=== PATIENT | female | born 1965 | race Asian ===

== ENCOUNTER 2019-07-18 18:13 | Inpatient (IN) | payer OTHER ==
[~2019-07-18] VITALS: Ht 154.9 cm; Wt 69.8 kg
[2019-07-18] MEDS ORDERED: AMPDEX10CR PO (18:28)
[2019-07-18 19:14] LABS: BASOPHILS ABSOLUTE AUTO 0.06 K/mm3 (0.00-0.23); BASOPHILS PERCENT AUTO 2 % (0-2); Hematocrit 42.9 % (33.0-51.0); Hemoglobin 13.5 g/dL (11.5-16.0); Mean Corpuscular HGB 24.5 pg (26.0-34.0); Mean Corpuscular HGB Conc 31.5 g/dL (31.5-36.5); Mean Corpuscular Volume 78 fL (80-100); Mean Platelet Volume 8.8 fL (9.1-12.4); Platelet Count 415 K/mm3 (150-400); RDW Coefficient Variation 17.2 % (11.7-14.2); RDW Standard Deviation 47.4 fL (35.1-46.3); Red Blood Cell Count 5.52 M/mm3 (3.80-5.20); White Blood Cell Count 3.26 K/mm3 (4.00-11.30)
[2019-07-18 19:18] LABS: EOSINOPHILS PERCENT AUTO 0 % (0-6); IMMATURE GRAN ABSOLUTE AUTO 0.06 K/mm3 (0.00-0.10); IMMATURE GRAN PERCENT AUTO 2 % (0-1); LYMPHOCYTES ABSOLUTE AUTO 1.21 K/mm3 (0.84-5.20); LYMPHOCYTES PERCENT AUTO 37 % (21-46); MONOCYTES ABSOLUTE AUTO 0.18 K/mm3 (0.16-1.47); MONOCYTES PERCENT AUTO 6 % (4-13); NEUTROPHILS ABSOLUTE AUTO 1.75 K/mm3 (1.96-9.15); NEUTROPHILS PERCENT AUTO 54 % (41-73)
[2019-07-18 19:34] LABS: BAND PERCENT MAN 33 % (0-8); BASOPHILS PERCENT MAN 0 % (0-2); EOSINOPHILS PERCENT MAN 0 % (0-6); LYMPHOCYTES PERCENT MAN 34 % (21-46); METAMYELOCYTE ABSOLUTE MAN 0.06 K/mm3 (0.00-0.00); METAMYELOCYTE PERCENT MAN 2 % (0-0); MONOCYTES ABSOLUTE MAN 0.22 K/mm3 (0.16-1.47); MONOCYTES PERCENT MAN 7 % (4-13); MYELOCYTE ABSOLUTE MAN 0.03 K/mm3 (0.00-0.00); MYELOCYTE PERCENT MAN 1 % (0-0); NEUTROPHILS ABSOLUTE MAN 1.56 K/mm3 (1.96-9.15); PROMYELOCYTE ABSOLUTE MAN 0.03 K/mm3 (0.00-0.00); PROMYELOCYTE PERCENT MAN 1 % (0-0); SEG NEUTROPHILS PERCENT MAN 15 % (41-73); TOTAL CELLS COUNTED 100
[2019-07-18 19:35] LABS: OTHER CELL PERCENT MAN 7 % (0-0)
[2019-07-18 19:36] LABS: Alanine Aminotransfer (ALT/SGP 24 U/L (12-78); Albumin, Blood 2.2 g/dL (3.4-5.0); Albumin/Globulin Ratio 0.5 (0.8-1.8); Alk Phos 104 U/L (50-136); Anion Gap 12 mmol/L (6-16); Aspartate Aminotrans (AST/SGOT 18 U/L (12-37); Bilirubin, Total 0.8 mg/dL (0.1-1.0); Blood Urea Nitrogen 18 mg/dL (8-24); Bun/Creatinine Ratio 23.9 (12.0-20.0); CO2, Blood 21 mmol/L (21-32); Calcium, Blood 8.7 mg/dL (8.5-10.1); Chloride, Blood 101 mmol/L (98-108); Creatinine, Blood 0.75 mg/dL (0.40-1.00); Globulin, Blood 4.8 g/dL (2.2-4.0); Glomerular Filtration Rate >60 (60-); Glucose, Blood 175 mg/dL (70-99); Magnesium, Blood 2.1 mg/dL (1.6-2.4); Potassium, Blood 3.6 mmol/L (3.5-5.5); Sodium, Blood 134 mmol/L (136-145)
--- NOTE | 2019-07-19 06:18 | NUR ---
SUMMARY PT ADMITTED TONIGHT FOR BOWEL OBSTRUCTION WITH PERF. PLANNING OR TODAY. PT VOIDING CONCENTRATED MUSE URINE.HAS 18G IV.PER RAMIRO JOYNER DAY SURGERY NOT NEEDING UPREG IF PT HAS NOT HAD MENSES FOR OVER 1 YR DUE TO "MENOPAUSE" PT STATES IN MENOPUASE AND HAS NOT HAD MENSES SINCE AGE 51 YR.
--- NOTE | 2019-07-19 06:58 | NUR ---
DR CROWDER WAS HERE TO SEE PT. PT OUT TO OR NOW PER STRETCHER IN ATTENDANCE OF RAMIRO ARREDONDO.
--- NOTE | 2019-07-19 07:06 | NUR ---
PT TRANSPORTED TO [facility]. AGREE WITH PLANNED SURGERY. LUNG SOUNDS CLEAR. C/O ABD PAIN 11/01. DR. CROWDER IN TO SEE PT AND GET SURGERY CONSENT.
--- NOTE | 2019-07-19 08:26 | NUR ---
07/19/19 0826 Pilar Martinez A EPIDURAL PLACED BY DR. SMITH AT BEGINNING OF CASE. PATIENT ON SCHEDULED ZOSYN 3.375MG, LAST DOSE AT 0615. HERNÁNDEZ PLACED BY NATHALIE PRATT.
--- NOTE | 2019-07-19 12:20 | NUR ---
RECEIV.90ED PT FROM PACU S/P BOWEL RESECTION WITH OSTOMY PLACEMENT. PT RE-INTUBATED IN PACU PRIOR TO DEPARTURE FOR ICU DUE TO DECREASED LOC AND HYPOTENSION. 7.0 ETT/21 AT LIP-PLACED TO VENT AC 20, TV 400, FIO2 40%, PEEP 5-SATS >90% LUNGS CLEAR. ABG DRAWN. PORTABLE CXR DONE TO CONFIRM BOTH ETT AND RIGHT NARE NGT PLACEMENT. NGT PLACED TO LIS. MIDLINE INCISION WITH TASH DRESSING IN PLACE. NO NOTED DRAINAGE. ABDOMEN REMAINS DISTENDED AND NO BT'S AUSCULTATED. A UROMETER WAS PLACED TO HERNÁNDEZ CATH-260 CC DARK, YELLOW URINE OUTPUT. PT RECEIVED 6 LITERS OF IVF BETWEEN OR AND PACU. PT OPENING EYES AND FOLLOWING COMMANDS TO BUGGY MAN. SHE NODS NO TO PAIN. EPIDURAL IN PLACE-SITE CLEAR WITH SCANT AMOUNT OF SANGINOUS DRAINAGE NOTED TO DRESSING. VERBAL ORDER GIVEN TO HOLD EPIDURAL FOR NOW-PER DR. SMITH. PROPOFOL DRIP INITIATED @ 20 MCG/KG/MIN. SOFT WRIST RESTRAINTS PLACED TO PREVENT ACCIDENTAL EXTUBATION/PULLING ON LINES AND TUBES.
[2019-07-19 12:37] LABS: Hematocrit 30.6 % (33.0-51.0); Hemoglobin 9.7 g/dL (11.5-16.0); Mean Corpuscular HGB 25.2 pg (26.0-34.0); Mean Corpuscular HGB Conc 31.7 g/dL (31.5-36.5); Mean Corpuscular Volume 80 fL (80-100); Mean Platelet Volume 8.5 fL (9.1-12.4); Platelet Count 260 K/mm3 (150-400); RDW Coefficient Variation 17.8 % (11.7-14.2); RDW Standard Deviation 50.9 fL (35.1-46.3); Red Blood Cell Count 3.85 M/mm3 (3.80-5.20); White Blood Cell Count 10.87 K/mm3 (4.00-11.30)
[2019-07-19 12:39] LABS: PCO2 Arterial 36.3 mmHg (35-45); PO2 Arterial 66.9 mmHg (80-100); pH Blood Arterial 7.41 (7.35-7.45)
[2019-07-19 13:02] LABS: Anion Gap 7 mmol/L (6-16); Blood Urea Nitrogen 16 mg/dL (8-24); Bun/Creatinine Ratio 28.5 (12.0-20.0); CO2, Blood 24 mmol/L (21-32); Calcium, Blood 7.2 mg/dL (8.5-10.1); Chloride, Blood 109 mmol/L (98-108); Creatinine, Blood 0.56 mg/dL (0.40-1.00); Glomerular Filtration Rate >60 (60-); Glucose, Blood 111 mg/dL (70-99); Potassium, Blood 4.1 mmol/L (3.5-5.5); Sodium, Blood 140 mmol/L (136-145)
--- NOTE | 2019-07-19 13:15 | NUR ---
SBP 60'S. DR. SMITH CONTACTED. NS 500 CC BOLUS INITIATED. ORDER GIVEN TO INITIATED LEVOPHED DRIP-TITRATED TO MAP 60-65. MD AWARE OF NEED FOR CENTRAL LINE. PER DR. SMITH-OK TO INFUSE LEVOPHED DRIP VIA PIV FOR A "SHORT TIME."
[2019-07-19 13:21] LABS: BAND PERCENT MAN 57 % (0-8); BASOPHILS PERCENT MAN 0 % (0-2); EOSINOPHILS PERCENT MAN 0 % (0-6); LYMPHOCYTES ABSOLUTE MAN 0.65 K/mm3 (0.84-5.20); LYMPHOCYTES PERCENT MAN 6 % (21-46); METAMYELOCYTE ABSOLUTE MAN 0.54 K/mm3 (0.00-0.00); METAMYELOCYTE PERCENT MAN 5 % (0-0); MONOCYTES ABSOLUTE MAN 0.54 K/mm3 (0.16-1.47); MONOCYTES PERCENT MAN 5 % (4-13); MYELOCYTE PERCENT MAN 1 % (0-0); NEUTROPHILS ABSOLUTE MAN 9.02 K/mm3 (1.96-9.15); SEG NEUTROPHILS PERCENT MAN 26 % (41-73); TOTAL CELLS COUNTED 100
--- NOTE | 2019-07-19 14:09 | NUR ---
DR. GUERRERO IN TO SEE PT. UPDATED TO CURRENT VS AND STATUS. PROPOFOL DRIP ON STANDBY. PT FOLLOWING COMMANDS VENT ON SPONTANEOUS. INITIALLY TV<200. WILL ATTEMPT WEANING X 30 MIN AND EVALUATE WHETHER OR NOT PT READY TO BE EXTUBATED AT THAT TIME.
--- NOTE | 2019-07-19 14:25 | NUR ---
TV REMAIN 200'S PT AGITATED AND PULLING ON RESRAINTS. SBT ABORTED-PROPOFOL DRIP RESUMED-TITRATED UP TO 30 MCG/KG/MIN AND PT MED WITH FENTANYL 50 MCG IVP X1 FOR PAIN, VENT RETURNED TO PREVIOUS SETTING. DR. DAVIS SPOKE WITH PT SISTER-UPDATED TO PT STATUS AND VERBAL CONSENT GIVEN FOR CENTRAL LINE PLACEMENT.
--- NOTE | 2019-07-19 15:19 | NUR ---
RIJ CENTRAL LINE PLACEMENT CONFIRMED BY DR. DAVIS. DBP 70'S LEVOPHED DRIP TITRATED UP TO 8 MCG. PT RESTING QUIETLY ON VENT WITH PROPOFOL @ 40 MCG/KG/MIN. OPES EYES TO VOICE.
--- NOTE | 2019-07-19 18:23 | NUR ---
PT REMAINS INTUBATED, SEDATED, AND RESTRAINED. RESTING QUIETLY ON VENT WITH PROPOFOL AT 40 MCG/KG/MIN. SBP 100'S AMD MAP> 60-65 WITH LEVOPHED DRIP AT 8 MCG/MIN. HERNÁNDEZ WITH SMALL AMOUNT OF DARK, YELLOW URINE TO UROMETER. FLUID BALANCE-PT OVER 6 LITERS POSITIVE-SCLERAL AND GENERALIZED EDEMA NOTED.
--- NOTE | 2019-07-19 20:00 | NUR ---
ASSUMED CARE OF PT AT 1915. REPORT RECEIVED AT BEDSIDE. PT PRESENTS IN BED. VENTED. SETTINGS CHECKED AND VERIFIED WITH OFF GOING RN. VENT : AC 20, Tv 400, FIO2 25 %, PEEP 5. PT TOLERATING VENT WELL. LEVOPHED AT 10 MCG'S/MIN TO MAINTAIN MAP >60 PERCENT. WILL REVIEW CHART AND PLAN OF CARE FOR THIS PT.
--- NOTE | 2019-07-19 23:00 | NUR ---
HAVE MEDICATED PT WITH 50 MCG FENTANYL FOR RESTLESS WITH VENT AND PROBABLE POST SURGICAL PAIN. THIS AFFECTIVE. PT ABLE TO REST. DRESSING WITH TASH WOUND VAC TO ABDOMEN INTACT. WILL CONTINUE TO MONITOR.
--- NOTE | 2019-07-20 04:19 | NUR ---
PT'S LEVOPHED CONTINUES AT 10 MCG'S/MIN. MAP MAINTAINS >60. PT CONTINUES ON PROPOFOL AT 40 MCG'S/KG. MAINTAINS SAS 3-4. MINIMAL SECRETIONS RETURNED WITH ETT SUCTIONING. PT'S SISTER CALLS FOR UPDATE ON PT. PT HAS BEEN MEDICATED SEVERAL ADDITIONAL TIMES WITH 50 MCG FENTANYL FOR PAIN RELIEF AND IMPROVED VENT TOLERANCE. WILL CONTINUE TO MONITOR.
[2019-07-20 04:56] LABS: Hematocrit 34.6 % (33.0-51.0); Hemoglobin 10.8 g/dL (11.5-16.0); Mean Corpuscular HGB 24.4 pg (26.0-34.0); Mean Corpuscular HGB Conc 31.2 g/dL (31.5-36.5); Mean Corpuscular Volume 78 fL (80-100); Mean Platelet Volume 8.7 fL (9.1-12.4); Platelet Count 297 K/mm3 (150-400); RDW Coefficient Variation 17.7 % (11.7-14.2); RDW Standard Deviation 50.2 fL (35.1-46.3); Red Blood Cell Count 4.42 M/mm3 (3.80-5.20); White Blood Cell Count 13.82 K/mm3 (4.00-11.30)
[2019-07-20 05:17] LABS: Anion Gap 6 mmol/L (6-16); Blood Urea Nitrogen 15 mg/dL (8-24); Bun/Creatinine Ratio 25.4 (12.0-20.0); CO2, Blood 23 mmol/L (21-32); Calcium, Blood 7.4 mg/dL (8.5-10.1); Chloride, Blood 108 mmol/L (98-108); Creatinine, Blood 0.59 mg/dL (0.40-1.00); Glomerular Filtration Rate >60 (60-); Glucose, Blood 124 mg/dL (70-99); Potassium, Blood 3.6 mmol/L (3.5-5.5); Sodium, Blood 137 mmol/L (136-145)
[2019-07-20 05:24] LABS: BAND PERCENT MAN 36 % (0-8); BASOPHILS PERCENT MAN 0 % (0-2); EOSINOPHILS PERCENT MAN 0 % (0-6); LYMPHOCYTES ABSOLUTE MAN 1.65 K/mm3 (0.84-5.20); LYMPHOCYTES PERCENT MAN 12 % (21-46); MONOCYTES ABSOLUTE MAN 0.69 K/mm3 (0.16-1.47); MONOCYTES PERCENT MAN 5 % (4-13); MYELOCYTE ABSOLUTE MAN 0.13 K/mm3 (0.00-0.00); MYELOCYTE PERCENT MAN 1 % (0-0); NEUTROPHILS ABSOLUTE MAN 11.33 K/mm3 (1.96-9.15); SEG NEUTROPHILS PERCENT MAN 46 % (41-73); TOTAL CELLS COUNTED 100
--- NOTE | 2019-07-20 07:10 | NUR ---
PT REMAINS INTUBATED. CURRENTLY, PT AWAKE AND ALERT. FOLLOWING COMMANDS AND COMMUNICATING NONVERBALLLY. PROPOFOL DRIP OFF. PT DENIES PAIN AT PRESENTS. EPIDURAL REMAINS IN PLACE, BUT NOT CURRENTLY IN USE. PLAN TO INITIATE EPIDURAL ONCE PT IS EXTUBATED. LUNGS CLEAR. SATS>90% ON FIO2 25%-VENT ON SPONTANEOUS. NGT TO RIGHT NARES CONTINUES TO DRAIN MODERATED AMOUNT OF THICK, BROWN LIQUID TO LIS. MIDLINE PIC DRESSING WITH SCANT AMOUNT OF OLD BLOOD TO LOWER PORTION OF DRESSING. OSTOMY APPLICANCE INTACT-STOMA PINK-SCANT SANGINOUS DRAINAGE TO OSTOMY BAG. HERNÁNDEZ WITH SMALL AMOUNT OF DARK, YELLOW URINE TO BSD. SCLERAL EDEMA CONTINUES. GENERALIZED EDEMA NOTED-WORSE THAN 07/19/19 ASSESSMENT. ECG SHOWS SR TO ST SBP TRENDING 100'S. ANTICIPATE EXTUBATION LATER THIS AM.
--- NOTE | 2019-07-20 09:10 | NUR ---
PT SUCCESSFULLY EXTUBATED AND PLACED ON 2 LITERS NASAL CANULA. SATS 96% AND NO NOTED SOB/DYSPNEA. EPIDURAL PAIN MEDS INITIATED. EPIDURAL SITE CLEAR-DRESSING WITH SCANT AMOUNT OF OLD BLOOD TO DRESSING. MALAIKA C.L. DRESSING CHANGE COMPLETED ETT TAPE WAS STUCK TO IT.
--- NOTE | 2019-07-20 10:33 | NUR ---
PT REQUESTED TO BE REPOSITONED IN BED. REPOSITIONED SUPINE WITH HOB ELEVATED. PT STATES THAT HER RIGHT LEG FEELS "NUMB". PT REPORTS /10 ABDOMINAL/INCISIONAL PAIN. OSTOMY APPLIANCE WITH GAS AND BROWN LIQUID STOOL.
--- NOTE | 2019-07-20 13:29 | NUR ---
MAP TRENDING LESS THAN 60. PT REPORTS FEELING "OVERWHELMED." SHE IS VERY ANXIOUS AND CONCERNED ABOUT HE BP-ATTEMPTED TO CONSOLE PT AND EXPLAINED TO HER THE USE OF LEVOPHED TO SUPPORT BP. LEVOPHED TITRATED UP TO 4 MCG/MIN TO KEEP MAP>60-65.
--- NOTE | 2019-07-20 18:18 | NUR ---
PT REMAINS A&O X 3. DENIES PAIN WITH EPIDURAL FOR PAIN MANAGEMENT. PT REPORTS MILD "NUMBNESS" TO RIGHT LEG, BUT IS ABLE TO MOVE HER LEG. HR TRENDING 100'S AND MAP>60 WITH LEVOPHED DRIP @ 4 MCG/MIN. PT MAINTAINS SATS>90% ON RA. GENERALIZED EDEMA CONTINUES. INTAKE 1461 VS 950 OUT THIS SHIFT (+511). COLOSTOMY STOMA REMAINS PINK AND BROWN LIQUID STOOL TO OSTOMY APPLIANCE. TASH DRESSING TO MIDLINE REMAINS C/D/I-SCANT AMOUNT OF OLD BLOOD TO LOWER PORTION OF DRESSING. HYPOACTIVE BT'S AUSCULTATED. NGT TO RIGHT NARE RETAPED PER PT REQUEST-TOLERATED WELL.
--- NOTE | 2019-07-20 20:19 | NUR ---
ASSUMPTION OF CARE: PT A&O, AWAKE IN BED. PT IS S/P ABD SURGERY. HAS EPIDURAL IN PLACE INFUSING WITH FENTANYL. DOSING IS CONTINUOUS 10ML/HR. PT HAS NOT NEEDED ADDITIONAL FENTANYL DOSING BEYOND CONTINUOUS INFUSION. STATES PAIN IS 0/10. LUNG SOUNDS ARE CLEAR. SPO2 >90% ON RA. IS ST, HR IN THE 100S, SBP IN THE 100-110S. NGT IN PLACE CONNECTED TO LIS. COLOSTOMY TO R ABD. PT IS PASSING BROWN LIQUID STOOL AND FLATUS. STOMA IS PINK/RED. PT ALSO HAS MIDLINE ABD INCISION CONNECTED TO PORTABLE WOUND VAC. SMALL AMT OF SEROSANGUINEOUS DRAINAGE ON DRESSING, OTHERWISE C/D/I. HERNÁNDEZ IN PLACE DRAINING SMALL AMT OF DARK YELLOW/ANTONIA URINE. PT HAS RIJ IN PLACE INFUSING WITH NS AT 125MLS/HR AND LEVOPHED AT 4MCG/MIN. PIV IN R HAND PATENT AND SL. GOAL TO WEAN LEVOPHED OFF PRESSURES TOLERATE. WILL CONTINUE TO MONITOR.
--- NOTE | 2019-07-20 22:05 | NUR ---
PT AWAKE IN BED. NO COMPLAINTS OF PAIN OR DISCOMFORT AT THIS TIME. PT STILL HAVING BROWN LIQUID STOOL AND IS PASSING GAS. LEVOPHED HAS BEEN TITRATED DOWN TO 2MCG. SBP REMAINS >90 AND MAPS >60. WILL CONTINUE TO TITRATE DOWN.
[2019-07-21 04:08] LABS: Hematocrit 28.7 % (33.0-51.0); Mean Corpuscular HGB 24.7 pg (26.0-34.0); Mean Corpuscular HGB Conc 31.4 g/dL (31.5-36.5); Mean Corpuscular Volume 79 fL (80-100); Mean Platelet Volume 8.9 fL (9.1-12.4); Platelet Count 250 K/mm3 (150-400); RDW Coefficient Variation 17.8 % (11.7-14.2); RDW Standard Deviation 50.1 fL (35.1-46.3); Red Blood Cell Count 3.65 M/mm3 (3.80-5.20); White Blood Cell Count 13.75 K/mm3 (4.00-11.30)
[2019-07-21 04:23] LABS: Anion Gap 7 mmol/L (6-16); Blood Urea Nitrogen 12 mg/dL (8-24); Bun/Creatinine Ratio 23.7 (12.0-20.0); CO2, Blood 22 mmol/L (21-32); Calcium, Blood 7.2 mg/dL (8.5-10.1); Chloride, Blood 113 mmol/L (98-108); Creatinine, Blood 0.51 mg/dL (0.40-1.00); Glomerular Filtration Rate >60 (60-); Glucose, Blood 59 mg/dL (70-99); Potassium, Blood 2.9 mmol/L (3.5-5.5); Sodium, Blood 142 mmol/L (136-145)
[2019-07-21 04:42] LABS: BAND PERCENT MAN 10 % (0-8); BASOPHILS PERCENT MAN 0 % (0-2); EOSINOPHILS PERCENT MAN 0 % (0-6); LYMPHOCYTES ABSOLUTE MAN 1.37 K/mm3 (0.84-5.20); LYMPHOCYTES PERCENT MAN 10 % (21-46); MONOCYTES ABSOLUTE MAN 0.27 K/mm3 (0.16-1.47); MONOCYTES PERCENT MAN 2 % (4-13); MYELOCYTE ABSOLUTE MAN 0.13 K/mm3 (0.00-0.00); MYELOCYTE PERCENT MAN 1 % (0-0); NEUTROPHILS ABSOLUTE MAN 11.96 K/mm3 (1.96-9.15); SEG NEUTROPHILS PERCENT MAN 77 % (41-73); TOTAL CELLS COUNTED 100
--- NOTE | 2019-07-21 06:09 | NUR ---
PT POTASSIUM THIS AM 2.9. CALL PLACED TO DR LI. ORDERS RECEIVED FOR KCL 60MEQ IV X 1.
--- NOTE | 2019-07-21 06:14 | NUR ---
SUMMARY: PT CURRENTLY RESTING. NO ACUTE CHANGES T/O SHIFT. NO CHANGES TO OSTOMY. PT STILL HAVING BROWN LIQUID STOOL AND PASSING GAS. VSS-LEVOPHED IS ON STANDBY. SBP CURRENTLY >90, MAPS >60. HERNÁNDEZ PRODUCING DARK YELLOW URINE. PT HAS NOT HAD ANY COMPLAINTS OF PAIN OR DISCOMFORT. WILL PASS REPORT TO ONCOMING SHIFT
--- NOTE | 2019-07-21 12:20 | NUR ---
REASSESSMENT: PAIN WELL CONTROLLED WITH FENTANYL PCEA, HAS SOME RLE NUMBNESS. HERNÁNDEZ WITH ADEQUATE OUTPUT. ILEOSTOMY HAS GAS AND BROWN LIQUID IN BAG, STOMA DARK PINK AND MOIST. POTASSIUM REPLACEMENT IN PROGRESS. SBP > 90 MM HG, NOT ON PRESSORS. IS C&DB AND USING INCENTIVE SPIROMETER, STATED SHE FEELS MUCH BETTER. DEFERRED BATHING UNTIL THIS AFTERNOON. IS FEELING ANXIOUS; SENT EMAILS TO FAMILY MEMBERS ASKING THEM NOT TO CALL HER SO MUCH, BUT THEY CONTINUE TO DO SO. PLAN IS LIKELY TRANSFER TO SURGICAL FLOOR TODAY.
--- NOTE | 2019-07-21 16:34 | NUR ---
REASSESSMENT: NGT REMOVED WITHOUT INCIDENT, STARTED ON SIPS OF ICE WATER, TOLERATING SO FAR. PAIN IS WELL CONTROLLED WITH PCEA. DENIES NAUSEA. LUNGS CLEARING, NOW CTAB, IS USING IS AND COUGHING. LOOKING FORWARD TO TRANSFER TO SURGICAL FLOOR.
--- NOTE | 2019-07-21 17:53 | NUR ---
PT HERE FROM ICU. THIS RN BEEN GIVEN REPORT AND IS ASSUMING CARE OF PT AT THIS TIME.
--- NOTE | 2019-07-21 18:08 | NUR ---
TRANSFERRED PT TO ROOM 229 VIA HER BED AT 1737. PCEA SANTIAGO AND LOCKED PCEA PUMP HANDED OFF TO Bertha YOUSSEF RN. ASSESSED EPIDURAL AND SURGICAL SITES. PT COMFORTABLE AT TIME OF TRANSFER.
--- NOTE | 2019-07-22 04:34 | NUR ---
SHIFT SUMMARY: RAHEEM IS A&O X 4. SHE IS POD3. TASH PATENT ON MIDLINE INCISION, NO DRAINGE. ILEOSTOMY DRAINING LARGE AMOUNTS OF LIQUID/FORMED STOOL AND FLATUS. EPIDURAL PATENT, SHE REPORTS 0/10 PAIN. SHE HAS DECREASED SENSATION FROM WAISTLINE DOWN RIGHT LEG, LEFT LEG TO MID-THIGH. SHE IS PLEASANT AND COOPERATIVE WITH CARE. GENERALIZED EDEMA. VSS, NO ACUTE EVENTS THIS SHIFT. CENTRAL LINE PATENT. SHE IS LYING IN BED WITH HER CALL LIGHT IN REACH. SHE IS ABLE TO MAKE HER NEEDS KNOWN. ENCOURAGE TO TAKE PART IN OSTOMY CARE. WILL REPORT TO DAY SHIFT RN.
[2019-07-22 05:12] LABS: Hemoglobin 8.6 g/dL (11.5-16.0); Mean Corpuscular HGB 24.7 pg (26.0-34.0); Mean Corpuscular HGB Conc 31.9 g/dL (31.5-36.5); Mean Corpuscular Volume 78 fL (80-100); Mean Platelet Volume 8.8 fL (9.1-12.4); NRBC ABSOLUTE 0.02 K/mm3 (0.00-0.02); NRBC Auto 0.2 /100 WBC (0.0-0.2); Platelet Count 228 K/mm3 (150-400); RDW Standard Deviation 50.7 fL (35.1-46.3); Red Blood Cell Count 3.48 M/mm3 (3.80-5.20); White Blood Cell Count 11.67 K/mm3 (4.00-11.30)
[2019-07-22 05:40] LABS: BAND PERCENT MAN 5 % (0-8); BASOPHILS PERCENT MAN 0 % (0-2); EOSINOPHILS PERCENT MAN 0 % (0-6); LYMPHOCYTES PERCENT MAN 12 % (21-46); METAMYELOCYTE ABSOLUTE MAN 0.11 K/mm3 (0.00-0.00); METAMYELOCYTE PERCENT MAN 1 % (0-0); MONOCYTES ABSOLUTE MAN 0.11 K/mm3 (0.16-1.47); MONOCYTES PERCENT MAN 1 % (4-13); NEUTROPHILS ABSOLUTE MAN 10.03 K/mm3 (1.96-9.15); SEG NEUTROPHILS PERCENT MAN 81 % (41-73); TOTAL CELLS COUNTED 100
[2019-07-22 05:44] LABS: Anion Gap 5 mmol/L (6-16); Blood Urea Nitrogen 5 mg/dL (8-24); Bun/Creatinine Ratio 9.9 (12.0-20.0); CO2, Blood 24 mmol/L (21-32); Calcium, Blood 7.3 mg/dL (8.5-10.1); Chloride, Blood 115 mmol/L (98-108); Glomerular Filtration Rate >60 (60-); Glucose, Blood 115 mg/dL (70-99); Potassium, Blood 3.1 mmol/L (3.5-5.5); Sodium, Blood 144 mmol/L (136-145)
--- NOTE | 2019-07-22 11:25 | NUR ---
ANESTHESIA HERE TO D/C EPIDURAL. DISCUSSED PO PAIN MED.
--- NOTE | 2019-07-22 16:43 | NUR ---
SHIFT SUMMARY PT TOLERATING DIET. PT HAD EPIDURAL OUT TODAY APPROX 12:00. PT BEEN ASSISTED WITH ADL'S PRN. PT S.L. EARLIER TODAY. PT TO HAVE HERNÁNDEZ OUT LATER TODAY. PT WORKED WITH THERAPY AND WALKED IN HALLWAY. PT BEEN MED PRN PAIN. PT BEEN SITTING UP IN CHAIR. PT PARTICIPATING IN CARE OF OSTOMY. PT USING [employer] APPR.
--- NOTE | 2019-07-23 04:06 | NUR ---
SHIFT SUMMARY: RAHEEM IS A&O X4. SHE HAS EMPTIED HER BAG WITH MINIMAL ASSISTANCE A COUPLE OF TIMES THIS SHIFT. SHE HAS ALSO BURPED HER BAG INDEPENDENTLY. SHE IS A STANDBY ASSIST TO THE BATHROOM, URINATING WITHOUT DIFFICULTY. SHE REPORTS TOLERABLE PAIN CONTROL WITH THE USE OF APAP AND TORADOL. SHE IS ABLE TO MAKE HER NEEDS KNOWN. SHE IS TOLERATING THE REGULAR DIET VERY WELL. WILL REPORT TO DAY SHIFT RN.
--- NOTE | 2019-07-23 17:58 | NUR ---
SUMMARY: PT IS POD4 PARTIAL COLECTOMY WITH COLOSTOMY. PT IS A/O, VSS. DID WELL OVERALL TODAY. ABD IS SOFT AND OSTOMY PRODUCING GAS AND STOOL. PT ABLE TO TOLERATE REG DIET. SURGICAL SITE WNL. WALKS WITH 1 ASSIST. DID REPORT INCREASED PAIN AFTER A LENGTH OF TIME WITHOUT TYLENOL OR TORADOL. PT REFUSES TAKING NARCOTICS. DISCUSSED PAIN MANAGEMENT WITH PT AND RECOMMENDED A SCEDULE SO THAT PAIN DOES NOT GET UNBEARABLE. PT EMPTYING OWN OSTOMY BAG. NO ACUTE SAFETY CONCERNS AT THIS TIME. WILL CTM AND PASS REPORT TO NOC RN
--- NOTE | 2019-07-24 18:02 | NUR ---
SUMMARY: PT IS POD5 SMALL BOWEL RESECTION. NO CHANGE TODAY, A/O, VSS. SURGICAL SITE WNL. OSTOMY CONTINUES TO HAVE GOOD OUTPUT, PT TOLERATING REG DIET. UP INDEPENDENTLY IN ROOM AND TAKING WALKS. PT REPORT PAIN MANAGED WELL WITH TYLENOL PRN. PT HAD SOME TROUBLE EMOTIONALLY WITH EMPTYING OSTOMY BAG HERSELF, REPORTS THAT IT IS OVERWHELMING AND THE SMELL TENDS TO MAKE HER NAUSEATED. PT HAS AROMATHERAPY AT BEDSIDE, SELF CARE ENCOURAGED MUCH POSSIBLE. PT EMPTIED X2 TODAY HERSELF AND STAFF EMPTIED X2. PRAYER AND EMOTIONAL SUPPORT GIVEN FOLLOWING PATHOLOGY NEWS. PT SEEMS TO BE "OK" AND IS IN HOPEFUL SPIRITS. NO ACUTE SAFETY CONCERNS. WILL CTM AND REPORT TO ALDEN RN.
--- NOTE | 2019-07-25 06:29 | NUR ---
POD 6 S/P COLECTOMY+ILEOSTOMY. PT VSS, TASH DRESSING CDI W/GOOD SEAL/SX. PT MOI REG PO, NO N/V. PT IS MANAGING OSTOMY W/MIN ASSIST. PT REMAINS ANXIOUS AND VERBALIZES FEELING "OVERWHELMED" W/OSTOMY MGMT. PT VOIDING DARK YELLOW URINE, PO FLUIDS ENC. PT AMB INDEP IN ROOM, IS USING CALL LIGHT FOR ASSISTANCE, WILL CONT TO MONITOR UNTIL REP GIVEN TO ONCOMING RN.
--- NOTE | 2019-07-25 16:07 | NUR ---
PT TEARFUL, STATES SHE IS OVERWHELMED AND "GROSSED OUT " BY OSTOMY. EMOTIONAL SUPPORT AND ENCOURAGEMENT GIVEN TO PATIENT. PT REQUEST SHE BE ALLOWED TO SLEEP UNTIL DINNER.
--- NOTE | 2019-07-25 17:02 | NUR ---
1635 chills pt reports chills, temp now 101.4. blankets removed, pt insructed to use is at least hourly. tylenol given. spoke with pharmacy regarding pneumovax and was recommended that pneumovx be held until 07/26/19
--- NOTE | 2019-07-25 18:34 | NUR ---
summary pt reports pain well controlled with po meds. pt able to burp and empty ostomy bag though at times tearful and states she is overwhelmed and cant do it (deal with ostomy).pt febrile at 101.9, encouraged to use IS and be oob
--- NOTE | 2019-07-26 07:50 | NUR ---
SHIFT SUMMARY: RAHEEM IS A&O X4. SHE IS TOLERATING REGULAR DIET WELL, NO NAUSEA OR VOMITING. EXCELLENT OUTPUT THROUGH ILEOSTOMY. SHE IS EMPTYING AND BURPING THE OSTOMY BAG INDEPENDENTLY, INDEPENDENT IN THE ROOM. SHE USES HER CALL LIGHT APPROPRIATELY. TASH AND WAFER CHANGED JUST BEFORE SHIFT CHANGE D/T OVERFLOW UNDERNEATH WAFER. PT CONCERNED ABOUT HAVING ENOUGH SUPPLIES AT HOME D/T THE LARGE AMOUNT OF OUTPUT THROUGH HER ILEOSTOMY AND THE LEVEL OF CLEANLINESS THAT SHE IS COMFORTABLE WITH. EMOTIONAL SUPPORT PROVIDED, PT REPORTS "HAVING A MOMENT" DUE TO HER CA DIAGNOSIS. SHE IS SITTING UP IN THE BEDSIDE CHAIR WITH HER CALL LIGHT IN REACH. WILL REPORT TO DAY SHIFT RN.
--- NOTE | 2019-07-26 09:35 | NUR ---
PT REQUESTED THAT HER RIGHT CENTRAL LINE DRESSING BE REMOVED. DRESSING REMOVED, SITE WITH EVIDENCE OF POKE HOLES, CLEAN AND DRY, NO LEAKAGE
--- NOTE | 2019-07-26 09:55 | NUR ---
DR CROWDER HERE TO SEE PT. DISCUSSED PT'S STATUS INCLUDING FEVER YESTERDAY. REPORTS PT TO STAY TODAY.
--- NOTE | 2019-07-26 15:13 | NUR ---
RAHEEM HAS HAD A GOOD DAY TODAY, SHE HAS BEEN AFEBRILE, AMBULATORY AND HAS ONLY HAD ASSISTANCE WITH THE DEVICE ONCE THIS SHIFT. SHE IS TOLERATING FLUIDS FAIRLY WELL, HER CONCERN DISCUSSED WITH TROLLEY COLLECTOR IS THAT SHE HAS NO APPETITE FOR "CAFETERIA" FOOD. WE ARE ENCOURAGING FLUIDS AND TRYING TO FIND APPETIZING THINGS. SHE HAS TAKEN TYLENOL TWICE THIS SHIFT, WE DID ASK THAT PHARMACY SWITCH HER TO LIQUID SHE WAS CHEWING THE TABLETS. SHE IS INDEPENDENT IN HER ROOM AND DOESN'T ASK FOR MUCH ASSISTANCE. SHE HAS BEEN GIVEN A LOT OF ENCOURAGEMENT AND POSITIVE FEEDBACK REGARDING HER COLOSTOMY BAG AND HER FUTURE WITH REGARDS TO CHEMOTHERAPY AND TREATMENT.
--- NOTE | 2019-07-26 15:20 | NUR ---
ASSUMING CARE OF PT AT THIS TIME.
--- NOTE | 2019-07-26 17:39 | NUR ---
NO ACUTE CHANGES SINCE ASSUMING CARE. PT HAS NO COMPLAINTS AND IS INDEP IN ROOM. CALL LIGHT WITHIN REACH.
[2019-07-27 03:42] LABS: Hematocrit 27.2 % (33.0-51.0); Hemoglobin 8.8 g/dL (11.5-16.0); Mean Corpuscular HGB 24.7 pg (26.0-34.0); Mean Corpuscular HGB Conc 32.4 g/dL (31.5-36.5); Mean Corpuscular Volume 76 fL (80-100); Mean Platelet Volume 9.2 fL (9.1-12.4); NRBC ABSOLUTE 0.07 K/mm3 (0.00-0.02); NRBC Auto 0.3 /100 WBC (0.0-0.2); Platelet Count 476 K/mm3 (150-400); RDW Coefficient Variation 17.3 % (11.7-14.2); RDW Standard Deviation 46.8 fL (35.1-46.3); Red Blood Cell Count 3.56 M/mm3 (3.80-5.20); White Blood Cell Count 25.34 K/mm3 (4.00-11.30)
[2019-07-27 04:03] LABS: Anion Gap 3 mmol/L (6-16); Blood Urea Nitrogen 7 mg/dL (8-24); Bun/Creatinine Ratio 16.8 (12.0-20.0); CO2, Blood 32 mmol/L (21-32); Calcium, Blood 7.5 mg/dL (8.5-10.1); Chloride, Blood 105 mmol/L (98-108); Creatinine, Blood 0.42 mg/dL (0.40-1.00); Glomerular Filtration Rate >60 (60-); Glucose, Blood 98 mg/dL (70-99); Potassium, Blood 2.5 mmol/L (3.5-5.5); Sodium, Blood 140 mmol/L (136-145)
[2019-07-27 04:05] LABS: BAND PERCENT MAN 17 % (0-8); BASOPHILS PERCENT MAN 0 % (0-2); EOSINOPHILS PERCENT MAN 0 % (0-6); LYMPHOCYTES ABSOLUTE MAN 1.26 K/mm3 (0.84-5.20); LYMPHOCYTES PERCENT MAN 5 % (21-46); MONOCYTES ABSOLUTE MAN 1.01 K/mm3 (0.16-1.47); MONOCYTES PERCENT MAN 4 % (4-13); NEUTROPHILS ABSOLUTE MAN 23.05 K/mm3 (1.96-9.15); SEG NEUTROPHILS PERCENT MAN 74 % (41-73); TOTAL CELLS COUNTED 100
--- NOTE | 2019-07-27 06:41 | NUR ---
SHIFT SUMMARY: RAHEEM IS A&OX4, EMPTYING AND BURPING HER OSTOMY BAG INDEPENDENTLY, INDEPENDENT IN THE ROOM AND TO THE BATHROOM. SHE REPORTED THIS MORNING THAT SHE DID NOT URINATE AT ALL YESTERDAY. HER WBCs INCREASED FROM THE LAST LAB DRAW ON THE FROM 11.73 TO 25.34 AND POTASSIUM 3.1 ON 07/[address] JACKSON NOTIFIED, ORDERS PLACED IN COMPUTER FOR POTASSIUM AND URINALYSIS. VSS. SHE IS ABLE TO MAKE HER NEEDS KNOWN. SHE COMPLETED A WAFER CHANGE WITH MINIMAL HELP. WILL REPORT TO DAY SHIFT RN.
[2019-07-27 08:03] LABS: Source, Urine Clean Catch
[2019-07-27 08:06] LABS: Bilirubin, Urine Neg (Neg); Blood, Urine Neg (Neg); Glucose Qualitative, Urine Neg (Neg); Ketones, Urine Neg (Neg); Leukocyte Esterase, Urine 1+ (Neg); Nitrite, Urine Neg (Neg); Protein, Urine 2+ (Neg); Specific Gravity, Urine 1.015 (1.003-1.022); Urobilinogen, Urine NORM (Normal)
[2019-07-27 08:16] LABS: Appearance, Urine Clear (Clear)
[2019-07-27 08:17] LABS: Color, Urine Yellow (P-Yellow)
[2019-07-27 08:18] LABS: Red Blood Cells, Urine Not Seen /hpf (0-2); Squamous Epithelial Cells Mod /hpf (Few); White Blood Cells, Urine 0-2 /hpf (0-5)
[2019-07-27 08:19] LABS: Bacteria Few /hpf
[2019-07-27 08:20] LABS: Amorphous Light (0-Heavy); Granular Casts Rare /lpf (0); Hyaline Casts 0-2 /lpf (0-2); Mucus Light (0-Heavy); Renal Epithelial Few /hpf (0-Rare); Transitional Epithelial Cells Mod /hpf (0-Rare)
--- NOTE | 2019-07-27 14:08 | NUR ---
INSTRUCTED PT ON DRINKING CONTRAST FOR UPCOMING CT SCAN. PT APPEARS TO BE FRUSTRATED. THIS RN EDUCATED PT ON IMPORTANCE OF CT SCAN AND PROVIDED SUPPORT. WILL CONT TO ENCOURAGE PO INTAKE OF CONTRAST.
--- NOTE | 2019-07-27 15:56 | NUR ---
SHIFT SUMMARY PT COMPLAINING OF GAS LIKE PAINS T/O SHIFT. TYLENOL + IBUPROFEN PRN. VSS. PT AFEBRILE. PT INDEP IN ROOM AND ENCOURAGING AMBULATION. PT INDEP WITH ILEOSTOMY CARE AND SUPPORT/EDUCATION GIVEN PRN. MOI REG DIET. IV SL. PT HAVING REPEAT CT SCAN THIS EVENING. USES CALL LIGHT APPROPRIATELY.
--- NOTE | 2019-07-27 17:40 | NUR ---
PT TO IMAGING.
[2019-07-28 04:22] LABS: Hematocrit 27.5 % (33.0-51.0); Hemoglobin 8.8 g/dL (11.5-16.0); Mean Corpuscular HGB 24.6 pg (26.0-34.0); Mean Corpuscular Volume 77 fL (80-100); Mean Platelet Volume 9.6 fL (9.1-12.4); NRBC ABSOLUTE 0.08 K/mm3 (0.00-0.02); NRBC Auto 0.6 /100 WBC (0.0-0.2); Platelet Count 556 K/mm3 (150-400); RDW Coefficient Variation 17.5 % (11.7-14.2); RDW Standard Deviation 48.2 fL (35.1-46.3); Red Blood Cell Count 3.57 M/mm3 (3.80-5.20); White Blood Cell Count 14.46 K/mm3 (4.00-11.30)
--- NOTE | 2019-07-28 04:26 | NUR ---
SHIFT SUMMARY: PT REPORTS FEELING MUCH BETTER THIS SHIFT. REPORTS PAIN IS AT TOLERABLE LEVEL. EMPTYING AND BURPING OSTOMY BAG INDEPENDENTLY. REPORTS NEEDING MORE EDUCATION ON HOW TO CHANGE OSTOMY APPLIANCE. OSTOMY PRODUCING BROWN LIQ STOOL AND FLATUS. PT REPORTS WHILE BRUSHING TEETH, NOTICED WHITE SPOTS IN MOUTH. PT DENIES DISCOMFORT BUT DOES REPORT A DRY MOUTH. WILL FOLLOWUP WITH DR. ROSA INDEPENDENT IN ROOM. VOIDING. URINE DARK IN COLOR. WILL START IV ABX FOR UTI TODAY.
[2019-07-28 04:44] LABS: BAND PERCENT MAN 9 % (0-8); BASOPHILS PERCENT MAN 0 % (0-2); EOSINOPHILS PERCENT MAN 0 % (0-6); LYMPHOCYTES ABSOLUTE MAN 0.72 K/mm3 (0.84-5.20); LYMPHOCYTES PERCENT MAN 5 % (21-46); MONOCYTES ABSOLUTE MAN 0.57 K/mm3 (0.16-1.47); MONOCYTES PERCENT MAN 4 % (4-13); NEUTROPHILS ABSOLUTE MAN 13.15 K/mm3 (1.96-9.15); SEG NEUTROPHILS PERCENT MAN 82 % (41-73); TOTAL CELLS COUNTED 100
[2019-07-28 04:47] LABS: Anion Gap 3 mmol/L (6-16); Blood Urea Nitrogen 6 mg/dL (8-24); Bun/Creatinine Ratio 13.7 (12.0-20.0); CO2, Blood 31 mmol/L (21-32); Calcium, Blood 7.9 mg/dL (8.5-10.1); Chloride, Blood 108 mmol/L (98-108); Creatinine, Blood 0.44 mg/dL (0.40-1.00); Glomerular Filtration Rate >60 (60-); Glucose, Blood 97 mg/dL (70-99); Sodium, Blood 142 mmol/L (136-145)
--- NOTE | 2019-07-28 10:57 | NUR ---
DR JACKSON IN TO SEE PT.
--- NOTE | 2019-07-28 14:55 | NUR ---
TURNED OVER CARE TO RENZO JOYNER
--- NOTE | 2019-07-28 15:06 | NUR ---
CARE ASSUMED OF PT AT 1500. PT IS ALERT AND ORIENTED. SHE IS GETTING IV POTASSIUM WHICH SHE STATES IS PAINFUL, IV FLUSHED AND POTASSIUM IS RUNNING CONCURRENTLY WITH NS TO DECREASE PAIN; PT IS TOLERATING AT THIS TIME. OSTOMY BAG BURPED. PT DENIES PAIN. SHE COMPLAINED OF SOME NAUSEA BUT IS ABLE TO SIP A PEPSI AT THIS TIME.
--- NOTE | 2019-07-28 18:30 | NUR ---
SHIFT SUMMARY NO SIGNIFICANT CHANGES TO REPORT SINCE CARE ASSUMED OF PT. WILL MONITOR UNTIL REPORT TO ONCOMING RN.
[2019-07-29 03:37] LABS: Hematocrit 26.7 % (33.0-51.0); Hemoglobin 8.6 g/dL (11.5-16.0); Mean Corpuscular HGB 24.9 pg (26.0-34.0); Mean Corpuscular HGB Conc 32.2 g/dL (31.5-36.5); Mean Corpuscular Volume 77 fL (80-100); Mean Platelet Volume 9.4 fL (9.1-12.4); NRBC Auto 0.9 /100 WBC (0.0-0.2); Platelet Count 608 K/mm3 (150-400); RDW Coefficient Variation 17.6 % (11.7-14.2); RDW Standard Deviation 48.4 fL (35.1-46.3); Red Blood Cell Count 3.45 M/mm3 (3.80-5.20); White Blood Cell Count 11.23 K/mm3 (4.00-11.30)
[2019-07-29 03:58] LABS: Anion Gap 4 mmol/L (6-16); Blood Urea Nitrogen 6 mg/dL (8-24); Bun/Creatinine Ratio 14.5 (12.0-20.0); CO2, Blood 29 mmol/L (21-32); Calcium, Blood 7.8 mg/dL (8.5-10.1); Chloride, Blood 110 mmol/L (98-108); Creatinine, Blood 0.41 mg/dL (0.40-1.00); Glomerular Filtration Rate >60 (60-); Glucose, Blood 88 mg/dL (70-99); Magnesium, Blood 1.9 mg/dL (1.6-2.4); Phosphorus, Blood 2.9 mg/dL (2.5-4.9); Potassium, Blood 3.6 mmol/L (3.5-5.5); Sodium, Blood 143 mmol/L (136-145)
[2019-07-29 04:09] LABS: BAND PERCENT MAN 6 % (0-8); BASOPHILS PERCENT MAN 0 % (0-2); EOSINOPHILS PERCENT MAN 0 % (0-6); LYMPHOCYTES ABSOLUTE MAN 1.23 K/mm3 (0.84-5.20); LYMPHOCYTES PERCENT MAN 11 % (21-46); MONOCYTES ABSOLUTE MAN 1.23 K/mm3 (0.16-1.47); MONOCYTES PERCENT MAN 11 % (4-13); NEUTROPHILS ABSOLUTE MAN 8.75 K/mm3 (1.96-9.15); SEG NEUTROPHILS PERCENT MAN 72 % (41-73); TOTAL CELLS COUNTED 100
--- NOTE | 2019-07-29 06:20 | NUR ---
POD 10 S/P COLECTOMY+ILEOSTOMY. PT VSS T/O NIGHT. PT MOI REG PO, NO C/O N/V. PT MANAGING OSTOMY W/MIN ASSIST, APPEARS MORE COMFORTABLE W/PROCESS. PAIN MGD W/TYLENOL AND IBUPROFEN W/REP RELIEF. PT INDEP IN ROOM, IS USING CALL LIGHT FOR ASSISTANCE, WILL CONT TO MONITOR UNTIL REP GIVEN TO ONCOMING RN.
--- NOTE | 2019-07-29 17:49 | NUR ---
SUMMARY: NO CHANGE TODAY. VSS, A/O. PT IN GOOD SPIRITS, HOPEFUL TO GO HOME TOMORROW. SURGICAL SITE STABLE, TOLERATING PO. RATES PAIN 0-2, INDEPENDENT IN ROOM AND WITH OSTOMY CARE. NO CONCERNS NOTED.
--- NOTE | 2019-07-30 05:33 | NUR ---
POD 11 S/P COLECTOMY+ILEOSTOMY. PT VSS, PAIN MGD W/NON PARCOTIC MEDS W/REP RELIEF. PT MOI REG PO, NO N/V. OSTOMY PUTTING OUT LIQ BROWN STOOL, PT MANAGING INDEP, EDUCATION CONT PRN. TASH DRESSING REMAINS INPLACE. PT USING CALL LIGHT FOR ASSISTANCE, IS EAGER TO D/C HOME. WILL CONT TO MONITOR UNTIL REP GIVEN TO ONCOMING RN.
[2019-07-30] MEDS ORDERED: ACET325UDC PO (10:08)
[2019-07-30] MEDS ORDERED: IBUP600 PO (10:09)
[2019-07-30] MEDS ORDERED: ONDA4ODT PO (10:09)
[2019-07-30] MEDS ORDERED: ROXICODONE5 MG PO (10:10)
--- NOTE | 2019-07-30 13:58 | NUR ---
PAIN PT C/O INCREASED CRAMPY ABDOMINAL PAIN AND JUST "NOT FEELING WELL" TODAY. PT MEDICATED FOR PAIN PER EMAR. ABD SOFT, NON-TENDER W/PALPATION, GOOD OSTOMY OUTPUT.
--- NOTE | 2019-07-30 18:16 | NUR ---
SHIFT SUMMARY PT HAD SOME INCREASED PAIN THIS SHIFT, DENIED NEED FOR NARCOTIC PAIN MEDICATION BUT DID REPORT THAT TYLENOL AND IBUPROFEN HEPLED MANAGE AT TOLERABLE LEVEL. UP TO SHOWER. PICCO DRESSING REMOVED AND MEDIPORE APPLIED-MIDLINE INCISION WITH NO REDNESS OR DRAINAGE PRESENT-DERIK TO BE REMOVED OUTPATIENT PER DR RASHEED. PT ACTIVILY PARTICIPATES IN ALL OSTOMY CARE AND DEMONSTRATED HOW TO APPLY NEW DEVICE. PLAN IS TO DC HOME TOMORROW IF NO COMPLICATIONS.
--- NOTE | 2019-07-31 04:12 | NUR ---
SHIFT SUMMARY: PT HAS DONE WELL THIS SHIFT. MEDICATED WITH IBUPROFEN AND TYLENOL PER EMAR. PT RATING PAIN 1/10 ON PAIN SCALE. OSTOMY PRODUCING FLATUS AND SOFT BROWN STOOL. PT MANAGING OSTOMY INDEPENDENTLY. MOI REG DIET. DENIES N/V. INDEPENDENT IN ROOM. PLAN FOR DISCHARGE TODAY.
[2019-07-31] MEDS ORDERED: NYST100000 PO (09:32)
== END 2019-07-31 14:20 | disposition home or self-care (01) | DRG 853 ==
LOC: ER 18:13 → SURS 20:25 → ER 20:25 → ICUW 20:25 → SURS 22:45 → ICUW 07-19 12:13 → SURS 07-19 12:13 → ICUW 07-21 15:15 → SURS 07-21 17:33 → ICUW 07-21 17:33 → SURS 07-31 14:20
PROVIDERS: Emergency Medicine; Internal Medicine Critical Care Medicine; Surgery; ADMIT Surgery
PROC: 3E043XZ Introduction of Vasopressor into Central Vein, Percutaneous Approach (ICD-10-PCS; 2019-07-19)
PROC: 0D1M0Z4 Bypass Descending Colon to Cutaneous, Open Approach (ICD-10-PCS; principal; 2019-07-19 07:30)
PROC: 0DBM0ZZ Excision of Descending Colon, Open Approach (ICD-10-PCS; 2019-07-19 07:30)
PROC: 0BH17EZ Insertion of Endotracheal Airway into Trachea, Via Natural or Artificial Opening (ICD-10-PCS; 2019-07-19 07:30)
PROC: 5A1945Z Respiratory Ventilation, 24-96 Consecutive Hours (ICD-10-PCS; 2019-07-19 07:30)
DX: A41.9 Sepsis, unspecified organism (principal); K63.1 Perforation of intestine (nontraumatic); J95.821 Acute postprocedural respiratory failure; K56.600 Partial intestinal obstruction, unspecified as to cause; I95.9 Hypotension, unspecified; K58.9 Irritable bowel syndrome, unspecified
CPT/HCPCS: 31500; 31720; 36415; 36556; 36600; 71045; 71046; 74018; 74176; 74177; 80048; 80053; 81001; 82803; 83605; 83735; 84100; 84132; 85025; 86850; 86900; 86901; 87040; 87086; 87493; 88307; 88309; 90732; 94002; 94003; 96361; 96365; 96375; 97110; 97116; 97162; 97530; 99285-25; A9270; C1751; C9113; J1100; J1170; J1650; J1885; J2250; J2310; J2370; J2405; J2543; J2704; J2710; J3010; J3480; J7030; J7042; J7050; J7060; J7120; Q9967

== ENCOUNTER 2019-08-22 10:04 | Day surgery (SDC) | payer OTHER ==
[~2019-08-22] VITALS: Ht 154.9 cm; Wt 51.6 kg
[~2019-08-22 10:04] MED LIST: ACET325UDC PO; AMPDEX10CR PO; IBUP600 PO; NYST100000 PO; ONDA4ODT PO; ROXICODONE5 MG PO
--- NOTE | 2019-08-22 10:44 | NUR ---
PT ADMITTED TO [facility]. AGREES WITH PLANNED SURGERY. LUNG SOUNDS CLEAR.
--- NOTE | 2019-08-22 13:54 | NUR ---
"DAY SURGERY RN | DISCHARGE VSS. A/O. DENIES PAIN AND NAUSEA. TOLERATING PO FLUIDS AND FOOD. NO ISSUES. DICHARGE INSTRUCTIONS GIVEN TO PATIENT. TO ENTRANCE VIA WHEELCHAIR, IS RIDE HOME. SITE C/D/I."
== END 2019-08-22 22:55 | disposition home or self-care (01) ==
LOC: ORSCMMR 10:04 → ORD 11:30 → ORSCMMR 22:55
PROVIDERS: Surgery
PROC: 05HM33Z Insertion of Infusion Device into Right Internal Jugular Vein, Percutaneous Approach (ICD-10-PCS; principal; 2019-08-22 11:30)
PROC: B5131ZA Fluoroscopy of Right Jugular Veins using Low Osmolar Contrast, Guidance (ICD-10-PCS; principal; 2019-08-22 11:30)
DX: C18.5 Malignant neoplasm of splenic flexure (principal)
CPT/HCPCS: 77001; C1788; J0690; J1100; J1642; J1885; J2250; J2370; J2405; J2704; J3010; J7120

== ENCOUNTER 2019-08-23 11:20 | Day surgery (SDC) | payer OTHER ==
[2019-08-23 12:11] LABS: Hematocrit 21.8 % (33.0-51.0); Hemoglobin 6.6 g/dL (11.5-16.0); Mean Corpuscular HGB 24.8 pg (26.0-34.0); Mean Corpuscular HGB Conc 30.3 g/dL (31.5-36.5); Mean Platelet Volume 9.4 fL (9.1-12.4); NRBC ABSOLUTE 0.11 K/mm3 (0.00-0.02); NRBC Auto 0.7 /100 WBC (0.0-0.2); Platelet Count 957 K/mm3 (150-400); RDW Coefficient Variation 19.7 % (11.7-14.2); RDW Standard Deviation 48.2 fL (35.1-46.3); Red Blood Cell Count 2.66 M/mm3 (3.80-5.20)
[2019-08-23 12:12] LABS: Mean Corpuscular Volume 82 fL (80-100)
[2019-08-23 12:24] LABS: Alanine Aminotransfer (ALT/SGP 19 U/L (12-78); Albumin, Blood 1.2 g/dL (3.4-5.0); Albumin/Globulin Ratio 0.2 (0.8-1.8); Alk Phos 169 U/L (50-136); Anion Gap 8 mmol/L (6-16); Aspartate Aminotrans (AST/SGOT 15 U/L (12-37); Bilirubin, Total 0.5 mg/dL (0.1-1.0); Blood Urea Nitrogen 13 mg/dL (8-24); Bun/Creatinine Ratio 32.3 (12.0-20.0); CO2, Blood 24 mmol/L (21-32); Calcium, Blood 7.9 mg/dL (8.5-10.1); Chloride, Blood 105 mmol/L (98-108); Globulin, Blood 5.2 g/dL (2.2-4.0); Glomerular Filtration Rate >60 (60-); Glucose, Blood 105 mg/dL (70-99); Potassium, Blood 3.1 mmol/L (3.5-5.5); Sodium, Blood 137 mmol/L (136-145); Total Protein, Blood 6.4 g/dL (6.4-8.2)
[2019-08-23 12:41] LABS: BAND PERCENT MAN 36 % (0-8); BASOPHILS PERCENT MAN 0 % (0-2); EOSINOPHILS PERCENT MAN 0 % (0-6); LYMPHOCYTES ABSOLUTE MAN 1.47 K/mm3 (0.84-5.20); LYMPHOCYTES PERCENT MAN 10 % (21-46); METAMYELOCYTE ABSOLUTE MAN 0.29 K/mm3 (0.00-0.00); METAMYELOCYTE PERCENT MAN 2 % (0-0); MONOCYTES ABSOLUTE MAN 0.44 K/mm3 (0.16-1.47); MONOCYTES PERCENT MAN 3 % (4-13); NEUTROPHILS ABSOLUTE MAN 12.49 K/mm3 (1.96-9.15); SEG NEUTROPHILS PERCENT MAN 49 % (41-73); TOTAL CELLS COUNTED 100
--- NOTE | 2019-08-23 19:24 | NUR ---
FIRST UNIT OF [facility] HERE NOW, STARTED WITH OTHER RN WHO WAS GIVEN REPORT AND IS TAKING OVER CARE. PT ORIGINALLY CROSS-MATCHED OUTPT WHICH CREATED DIFFICULTY IN OBTAINING PR[facility] UNTIL NOW.
--- NOTE | 2019-08-24 00:23 | NUR ---
Discharge instructions reviewed with patient. Patient verbalizes understanding. Copy given to patient to take home. Lungs clear T/O to Auscultation. Patient States Post-Procedure ride home has been arranged. Discharged via wheelchair to private car for ride home. IV removed.
== END 2019-08-24 00:30 | disposition home or self-care (01) ==
LOC: LAB SHORT 11:20 → TRN 11:20 → SURS 11:20 → EDSTATUS 17:24 → TRN 08-24 00:30
PROVIDERS: Internal Medicine Hematology & Oncology
DX: C18.9 Malignant neoplasm of colon, unspecified (principal)
CPT/HCPCS: 80053; 85025; 86850; 86900; 86901; 86923; P9016

== ENCOUNTER 2019-09-23 14:24 | Inpatient (IN) | payer OTHER ==
[~2019-09-23] VITALS: Ht 154.9 cm; Wt 53.3 kg
[2019-09-23 15:10] LABS: Hemoglobin 8.5 g/dL (11.5-16.0); Mean Corpuscular HGB 29.3 pg (26.0-34.0); Mean Corpuscular HGB Conc 31.5 g/dL (31.5-36.5); Mean Platelet Volume 10.1 fL (9.1-12.4); NRBC ABSOLUTE 0.11 K/mm3 (0.00-0.02); NRBC Auto 0.9 /100 WBC (0.0-0.2); Platelet Count 454 K/mm3 (150-400); RDW Coefficient Variation 26.1 % (11.7-14.2); White Blood Cell Count 12.06 K/mm3 (4.00-11.30)
[2019-09-23 15:24] LABS: Mean Corpuscular Volume 93 fL (80-100)
[2019-09-23 15:31] LABS: Alanine Aminotransfer (ALT/SGP 33 U/L (12-78); Albumin, Blood 0.9 g/dL (3.4-5.0); Albumin/Globulin Ratio 0.2 (0.8-1.8); Alk Phos 141 U/L (50-136); Anion Gap 9 mmol/L (6-16); Aspartate Aminotrans (AST/SGOT 15 U/L (12-37); Bilirubin, Total 0.5 mg/dL (0.1-1.0); Blood Urea Nitrogen 19 mg/dL (8-24); Bun/Creatinine Ratio 30.7 (12.0-20.0); CO2, Blood 24 mmol/L (21-32); Calcium, Blood 8.1 mg/dL (8.5-10.1); Chloride, Blood 101 mmol/L (98-108); Creatinine, Blood 0.62 mg/dL (0.40-1.00); Globulin, Blood 4.4 g/dL (2.2-4.0); Glomerular Filtration Rate >60 (60-); Glucose, Blood 139 mg/dL (70-99); Potassium, Blood 2.6 mmol/L (3.5-5.5); Sodium, Blood 134 mmol/L (136-145); Total Protein, Blood 5.3 g/dL (6.4-8.2); Troponin I <0.015 ng/mL (0.000-0.040)
[2019-09-23 16:13] LABS: BAND PERCENT MAN 9 % (0-8); BASOPHILS PERCENT MAN 0 % (0-2); EOSINOPHILS PERCENT MAN 0 % (0-6); LYMPHOCYTES % ATYPICAL MANUAL 1 % (0-0); LYMPHOCYTES ABSOLUTE MAN 4.82 K/mm3 (0.84-5.20); LYMPHOCYTES PERCENT MAN 39 % (21-46); METAMYELOCYTE ABSOLUTE MAN 0.48 K/mm3 (0.00-0.00); METAMYELOCYTE PERCENT MAN 4 % (0-0); MONOCYTES ABSOLUTE MAN 0.72 K/mm3 (0.16-1.47); MONOCYTES PERCENT MAN 6 % (4-13); MYELOCYTE ABSOLUTE MAN 0.36 K/mm3 (0.00-0.00); MYELOCYTE PERCENT MAN 3 % (0-0); NEUTROPHILS ABSOLUTE MAN 5.66 K/mm3 (1.96-9.15); SEG NEUTROPHILS PERCENT MAN 38 % (41-73); TOTAL CELLS COUNTED 100
[2019-09-23] MEDS ORDERED: XARELTO15 MG PO (17:53)
--- NOTE | 2019-09-23 19:02 | NUR ---
09/23/191901 Yash Melendez PT GIVEN ANTIBIOTICS IN ED, WILL BE ON SCHEDULED ANTIBIOTICS
--- NOTE | 2019-09-23 20:00 | NUR ---
SIGNIFICANT OTHER CALLED ER, STATING PT HAS MEDICATIONS IN HER PURSE. MEDS WERE TAKEN OUT (2 NURSE WITNESS) AND WALKED UP TO PHARMACY.
--- NOTE | 2019-09-23 20:27 | NUR ---
ASSUMED CARE NOTE: ASSUMED CARE OF PT AT 2026, RECEVIED REPORT FROM ER NURSE FAHAD AND OR NURSE HASEEB. PT ARRIVED TO UNIT VIA BED, WITH RT, , AND . PT IS UNRESPONSIVE, AND VENTED. NO OXYGEN SATURATION CAN BE OBTAINED, BP CANNOT BE OBTAINED THROUGH MONITOR OR MANUALLY. FAINT PULSE CAN BE FELT ON FEMORAL SITE. PUPILS ARE 2MM, REACTIVE SLUGGISH TO LIGHT. STOMA TO RLQ IS PINK AND MOIST. MIDLINE ABDOMINAL INCISION DRESSING IS C/D/I, CONNECTED TO WOUND VAC WHICH IS NOT WORKING PROPERLY, IS AWARE. AWAITING FOR BLOOD TO TRANSFUSE. 1 L OF LR STARTED WO. CALLED. SWR IN PLACE.
[2019-09-23 21:14] LABS: PCO2 Arterial 22.3 mmHg (35-45)
[2019-09-23 21:21] LABS: PO2 Arterial < 500 mmHg (80-100)
[2019-09-23 21:45] LABS: BASOPHILS ABSOLUTE AUTO 0.02 K/mm3 (0.00-0.23); BASOPHILS PERCENT AUTO 0 % (0-2); EOSINOPHILS ABSOLUTE AUTO 0.01 K/mm3 (0.00-0.68); EOSINOPHILS PERCENT AUTO 0 % (0-6); IMMATURE GRAN ABSOLUTE AUTO 0.63 K/mm3 (0.00-0.10); IMMATURE GRAN PERCENT AUTO 6 % (0-1); LYMPHOCYTES ABSOLUTE AUTO 3.71 K/mm3 (0.84-5.20); LYMPHOCYTES PERCENT AUTO 35 % (21-46); MONOCYTES ABSOLUTE AUTO 0.46 K/mm3 (0.16-1.47); MONOCYTES PERCENT AUTO 4 % (4-13); Mean Corpuscular HGB 29.8 pg (26.0-34.0); Mean Corpuscular HGB Conc 30.4 g/dL (31.5-36.5); Mean Corpuscular Volume 98 fL (80-100); Mean Platelet Volume 10.4 fL (9.1-12.4); NEUTROPHILS ABSOLUTE AUTO 5.93 K/mm3 (1.96-9.15); NEUTROPHILS PERCENT AUTO 55 % (41-73); NRBC ABSOLUTE 0.11 K/mm3 (0.00-0.02); Platelet Count 195 K/mm3 (150-400); RDW Coefficient Variation 24.7 % (11.7-14.2); RDW Standard Deviation 87.9 fL (35.1-46.3); Red Blood Cell Count 1.51 M/mm3 (3.80-5.20); White Blood Cell Count 10.76 K/mm3 (4.00-11.30)
[2019-09-23 21:47] LABS: Hematocrit 14.8 % (33.0-51.0); Hemoglobin 4.5 g/dL (11.5-16.0)
[2019-09-23 21:59] LABS: International Normalized Ratio 3.52; Prothrombin Time Results 35.1 Sec (9.7-11.5)
[2019-09-23 22:00] LABS: Alanine Aminotransfer (ALT/SGP 11 U/L (12-78); Albumin, Blood 0.3 g/dL (3.4-5.0); Albumin/Globulin Ratio 0.2 (0.8-1.8); Alk Phos 53 U/L (50-136); Anion Gap 12 mmol/L (6-16); Aspartate Aminotrans (AST/SGOT 8 U/L (12-37); Bilirubin, Total 0.2 mg/dL (0.1-1.0); Blood Urea Nitrogen 14 mg/dL (8-24); CO2, Blood 18 mmol/L (21-32); Calcium, Blood 6.5 mg/dL (8.5-10.1); Chloride, Blood 107 mmol/L (98-108); Creatinine, Blood 0.54 mg/dL (0.40-1.00); Globulin, Blood 1.8 g/dL (2.2-4.0); Glomerular Filtration Rate >60 (60-); Glucose, Blood 155 mg/dL (70-99); Sodium, Blood 137 mmol/L (136-145)
[2019-09-23 22:01] LABS: Total Protein, Blood 2.1 g/dL (6.4-8.2)
[2019-09-23 22:21] LABS: BAND PERCENT MAN 15 % (0-8); BASOPHILS PERCENT MAN 0 % (0-2); EOSINOPHILS PERCENT MAN 0 % (0-6); LYMPHOCYTES ABSOLUTE MAN 5.16 K/mm3 (0.84-5.20); LYMPHOCYTES PERCENT MAN 48 % (21-46); METAMYELOCYTE ABSOLUTE MAN 0.21 K/mm3 (0.00-0.00); METAMYELOCYTE PERCENT MAN 2 % (0-0); MONOCYTES ABSOLUTE MAN 0.43 K/mm3 (0.16-1.47); MONOCYTES PERCENT MAN 4 % (4-13); NEUTROPHILS ABSOLUTE MAN 4.94 K/mm3 (1.96-9.15); SEG NEUTROPHILS PERCENT MAN 31 % (41-73); TOTAL CELLS COUNTED 100
--- NOTE | 2019-09-23 22:29 | NUR ---
ORDERED 2 MORE UNITS OF PRBC, DUE TO CRITICAL LOW HEMOGLOBIN OF 4.5, ORDERS TO TRANSFUSE BLOOD AT 999ML/HR THROUGH CENTRAL LINE. 3RD UNIT CURRENTLY INFUSING, ARTLINE READING 122/78 WITH A MAP OF 90. LEVOPHED @ 15MCG/MIN, AND VASOPRESSING RUNNING AT 0.04 UNITS A MIN.
--- NOTE | 2019-09-23 22:35 | NUR ---
UPDATE: 2039: AT BEDSIDE, PREPARING TO START CENTRAL LINE. UNABLE TO OBTAIN BP. NO SPO2 AVALIABLE. BLOOD GAS PREFORMED, VENT SETTING AT AC 15/300/5/30%. ANOTHER LITER ON LR GIVEN ORDERED BY . 2114: CENTRAL LINE IN, 8.5 MALTESE, 4 LUMEN, 20CM CATH TO RIGHT GRION. ARTLINE PLACE TO RIGHT FEMORAL. ARTLINE READING 150/90, LEVOPHED TURNED DOWN TO 10MCG/MIN. 2119: ARTLINE READING SBP OF 60'S, LEVO TIRTATED UP TO 20. TWO MORE UNITS OF BLOOD ORDERED BY DELL. PT IN SINUS WITH HR IN THE 130'S. PT IS PALE, AND NO SPO2 CAN BE OBTAINED. DR. SHARPE AWARE. VENT SETTINGS NOW AT AC16/300/5/60%
--- NOTE | 2019-09-23 22:59 | NUR ---
PT CONTINUES TO BE UNRESPONSIVE, PT IS PALE, AND FAINT PULSES T/O. 4TH UNIT OF BLOOD INFUSING. K+ REPLACEMENT IS INFUSING. LEVOPHED AT 15MCG/MIN AND VASOPRESSIN AT 0.04U/MIN INFUSING THRU MEDIPORT LOCATED ON RIGHT SIDE OF THE CHEST. PT HAS 3+ SWELLING TO BLE. HERNÁNDEZ PATENT, LITTLE TO NO URINE OUTPUT. ABDOMINAL SURGICAL DRESSING WAS CHANGED BY MARCELLA JOYNER, IN ATTEMPT TO GET WOUND VAC TO FUNCTION. ATTEMPT WAS UNSUCCESSFUL. SCANT OF BLOOD NOTED TO ABDOMINAL DRESSING.
[2019-09-24 00:01] LABS: Hematocrit 42.8 % (33.0-51.0); Hemoglobin 14.5 g/dL (11.5-16.0)
--- NOTE | 2019-09-24 01:49 | NUR ---
UPDATE: PT'S CONTINUES TO HAVE LOW BP. CALLED REGARDING LOW SPB IN THE 70'S. PT WAS GIVEN A 1L OF LR BOLUS AND DEEDEE-SYNEPHRINE STARTED AT 50MCG/MIN
[2019-09-24 03:20] LABS: Mean Corpuscular HGB 31.2 pg (26.0-34.0); Mean Corpuscular HGB Conc 33.3 g/dL (31.5-36.5); Mean Corpuscular Volume 94 fL (80-100); Mean Platelet Volume 10.3 fL (9.1-12.4); NRBC ABSOLUTE 0.16 K/mm3 (0.00-0.02); NRBC Auto 0.8 /100 WBC (0.0-0.2); Platelet Count 81 K/mm3 (150-400); RDW Coefficient Variation 15.1 % (11.7-14.2); RDW Standard Deviation 49.6 fL (35.1-46.3); Red Blood Cell Count 1.86 M/mm3 (3.80-5.20); White Blood Cell Count 21.09 K/mm3 (4.00-11.30)
[2019-09-24 03:21] LABS: Hematocrit 17.4 % (33.0-51.0); Hemoglobin 5.8 g/dL (11.5-16.0)
--- NOTE | 2019-09-24 03:31 | NUR ---
CALLED REGARDING LOW BP AND 5.8 HEMOGLOBIN. ORDERS TO INFUSE [address] SCAN ORDERED.
[2019-09-24 03:38] LABS: Troponin I 0.039 ng/mL (0.000-0.040)
--- NOTE | 2019-09-24 03:41 | NUR ---
UPDATE: PT IS RESPONDING TO VERBAL AND PAINFUL STIMULI. IS ABLE TO FOLLOW DIRECTIONS AND IS ABLE TO ANSWER YES/NO USING BODY LANGUAGE. ROOPA JOYNER UPDATE SO, WHO WILL CONTACT PT'S ANNAMARIA
[2019-09-24 03:43] LABS: International Normalized Ratio 2.79
[2019-09-24 03:57] LABS: Prothrombin Time Results 28.2 Sec (9.7-11.5)
[2019-09-24 03:59] LABS: Alanine Aminotransfer (ALT/SGP 10 U/L (12-78); Albumin, Blood 0.6 g/dL (3.4-5.0); Albumin/Globulin Ratio 0.5 (0.8-1.8); Alk Phos 33 U/L (50-136); Anion Gap 20 mmol/L (6-16); Aspartate Aminotrans (AST/SGOT 9 U/L (12-37); Bilirubin, Total 0.8 mg/dL (0.1-1.0); Blood Urea Nitrogen 13 mg/dL (8-24); Bun/Creatinine Ratio 23.7 (12.0-20.0); CO2, Blood 8 mmol/L (21-32); Calcium, Blood 6.1 mg/dL (8.5-10.1); Chloride, Blood 107 mmol/L (98-108); Creatinine, Blood 0.55 mg/dL (0.40-1.00); Globulin, Blood 1.1 g/dL (2.2-4.0); Glomerular Filtration Rate >60 (60-); Glucose, Blood 254 mg/dL (70-99); Magnesium, Blood 1.1 mg/dL (1.6-2.4); Phosphorus, Blood 3.5 mg/dL (2.5-4.9); Potassium, Blood 4.4 mmol/L (3.5-5.5); Sodium, Blood 135 mmol/L (136-145); Total Protein, Blood 1.7 g/dL (6.4-8.2)
--- NOTE | 2019-09-24 04:14 | NUR ---
LAB CALLED [facility] WITH CRITICAL VALUES. CHARGED CALLED [facility] ORDERS GIVEN. 1 OUT OF 4 UNITS OF PRBC BEING DELIVERED AT THE MOMENT. AWAITING FOR BP TO STABLILIZE BEFORE CT TRANSPORT
--- NOTE | 2019-09-24 05:25 | NUR ---
PT TAKEN TO CT SCAN BY THREE NURSES AND RT. RETURNED TO ROOM BY 05.
--- NOTE | 2019-09-24 05:30 | NUR ---
CALLED DELL WITH CT RESULTS. DELL ATTEMPTING TO EACH MCGLADE. CALLED RENETTA WITH CT RESULTS, AND INFORMED HIM THAT PT'S ABDOMEN CONTINUES TO DISTEND, THAT HER STOMA IS BULDGING OUT AND IS HAVING WATERY/RED TINGED OUTPUT. ALSO INFORMED RENETTA AND DELL REGARDING SMALL AMOUNTS OF BLOOD TO ABDOMEN DRESSING.
[2019-09-24 06:34] LABS: BAND PERCENT MAN 21 % (0-8); BASOPHILS PERCENT MAN 0 % (0-2); EOSINOPHILS ABSOLUTE MAN 0.21 K/mm3 (0.00-0.68); EOSINOPHILS PERCENT MAN 1 % (0-6); LYMPHOCYTES ABSOLUTE MAN 6.53 K/mm3 (0.84-5.20); LYMPHOCYTES PERCENT MAN 31 % (21-46); METAMYELOCYTE ABSOLUTE MAN 1.68 K/mm3 (0.00-0.00); METAMYELOCYTE PERCENT MAN 8 % (0-0); MONOCYTES ABSOLUTE MAN 0.84 K/mm3 (0.16-1.47); MONOCYTES PERCENT MAN 4 % (4-13); MYELOCYTE ABSOLUTE MAN 0.84 K/mm3 (0.00-0.00); MYELOCYTE PERCENT MAN 4 % (0-0); NEUTROPHILS ABSOLUTE MAN 10.96 K/mm3 (1.96-9.15); SEG NEUTROPHILS PERCENT MAN 31 % (41-73); TOTAL CELLS COUNTED 100
--- NOTE | 2019-09-24 06:35 | NUR ---
AT BEDSIDE, PT GOING TO OR. DEEDEE-SYNEPHERIN OPN STANDBY
--- NOTE | 2019-09-24 07:12 | NUR ---
ABDOMEN SLIGHTLY DISTENDED. BP 2 UNITS OF FFP GIVEN PER ORDER BY DOCTOR DELL.
--- NOTE | 2019-09-24 07:18 | NUR ---
SHIFT SUMMARY: SEE PREVIOUS NOTES. PT CONTINUES TO BE RESPONSIVE TO PAINFUL AND VERBAL STIMULI. ABLE TO FOLLOW SIMPLE COMMANDS. NO SEDATION WAS GIVEN THIS SHIFT, PT'S BP WAS LOW AND SHE WAS TOLERATING THE VENT. NO SPO2 READING WAS ABLE TO BE OBTAINED THE ENTIRE SHIFT, DUE TO POOR CIRCULATION, PHYSICAN AWARE. PT RECEVIED CENTRAL LINE AND ARTLINE THIS SHIFT. PT IN SIT WITH HR IN THE 110'S FOR THE MAJORITY OF THE SHIFT. LUNG SOUNDS DIMINISHED T/O. PT'S ABDOMEN BEGAN TO DISTEND T/O SHIFT. ABDOMEN BECAME HARD BEGAN STOMA TO BULG, PHYSICAN AWARE. SMALL/MODERATE AMOUNT OF BLEEDING NOTED TO MIDLINE ABDOMINAL DRESSING. PT HAD SCANTS AMOUNTS OF URINE. PT RECEVIED A TOTAL OF 8UNITS OF PRBC'S AND 6 UNITS OF FFP. H&H AFTER LAST UNIT OF BLOOD WAS UNABLE TO BE OBTAINED DUE TO PT BEING TAKEN THE OR. BP BEGAN TO STABALIZE TOWARDS THE END OF SHIFT. DEEDEE WAS ON SB, AND LEVO WAS TITRATED DOWN TO 5MCG/MIN, AND VASOPRESSIN @ 0.04U/MIN. GAVE REPORT TO ANDRES JOYNER, AND OR NURSE LOYA AT BEDSIDE. PT CURRENTLY IN OR.
[2019-09-24 08:37] LABS: PCO2 Arterial 29.5 mmHg (35-45); PO2 Arterial 237 mmHg (80-100); pH Blood Arterial 7.42 (7.35-7.45)
[2019-09-24 08:41] LABS: Hematocrit 24.3 % (33.0-51.0); Hemoglobin 8.2 g/dL (11.5-16.0); Mean Platelet Volume 10.2 fL (9.1-12.4)
[2019-09-24 08:51] LABS: Calcium, Blood 7.6 mg/dL (8.5-10.1); Magnesium, Blood 1.5 mg/dL (1.6-2.4)
[2019-09-24 08:56] LABS: Vancomycin, Trough 15.7 ug/mL (5.0-10.0)
[2019-09-24 09:02] LABS: Platelet Count 31 K/mm3 (150-400)
--- NOTE | 2019-09-24 09:22 | NUR ---
PT TAKEN TO OR AT 0700. REPORT OBTAINED FROM NIGHT RN AND ANESTHESIOLOGIST UPON RETURN FOM OR AT 0806. PT ARRIVED ON VENT W/O SEDATION. ART LINE ZEROED, BP STABLE ON PRESSERS; LEVOPHED AT 5MCG, NEOSYNEPRINE AT 75MCG, VASOPRESSIN AT 0.06UNITS. OR AND ANESTHESIA ASKED WHEN VASOPRESSIN WAS INCREASED; OR TEAM UNAWARE VASOPRESSIN AT 0.6UNITS. VASOPRESSIN DECREASED TO 0.4UNITS. BICARB GTT INFUSING AT 200CC/HR. RECTAL TEMP PROBE PLACED AT INITIAL TEMP 85. TEMP 88 PER RECTAL PROBE. BEAR HUGGER W WARM BLANKETS PLACED IMMEDIATELY. TEMP REMAINS 88.0, WILL PLACE HERNÁNDEZ TEMP PROBE FOR VARIFICATION. CRITICAL LABS CALLED INTO DR LI. H&H STABLE; CALLED INTO DR JACKSON. NEW ORDERS TO HOLD FURTHER PRBC IF H&H >8. PLATELET PHERESIS INFUSED W/O ADVERSE REACTIONS. CAR GROOMER AT BEDSIDE NOW. S/O AT BEDSIDE NOW SPEAKING W PALIATIVE CARE. WOUND VAC TO LARGE MIDLINE INCISION INTACT. L NG TO LIS. MAG 2GM INFUSING. PT'S DAUGHTER IS ON HER WAY DOWN FROM [place].
[2019-09-24 09:33] LABS: International Normalized Ratio 1.55
[2019-09-24 09:34] LABS: Prothrombin Time Results 16.2 Sec (9.7-11.5)
--- NOTE | 2019-09-24 09:39 | NUR ---
09/24/19 0939 Odalys Downing LATE ENTRY. ABREVIATED TIME OUT PERFORMED. DUE TO EMERGENT NATURE OF PROCEDURE, NO CONSENT OBTAINED. SEE ANESTHESIA NOTES FOR ADMINISTRATION OF BLOOD PRODUCTS.
--- NOTE | 2019-09-24 10:00 | NUR ---
PAL CARE INITIAL VISIT MADE. Case conferenced with charge coordinator prior to visit with pt's SO, Derrick at bedside. Pt's RN and other staff providing care to pt in room also. Derrick feels like he has a good understanding of pt's current critical status and that the nurses have done a good job of explaining and answering questions for him. Pt's jose a, Tessy is enroute to [place] from [place]. Derrick and I discussed Camryn's recent medical issues, her wishes and plans. He reports that for the past several years, Camryn did not follow up with Drs or follow thru with recommendations, partially because she was caring for her dad who was dying of cancer. He reports that they had many conversations re: her current and acute medical issues in recent months. She had become more agreeable to pursuing recommended tx but was clear that if she were very ill and needed resuscitation that she wanted Derrick to "let her go". He confirms that she would not want CPR at this time. He is agreeable to all medical care continuing otherwise and will be calling pt's daughter to update on events during the night and pt's current status. THe nurses have also been in regular contact with daughter. I reviewed EMR and no AD or POLST has been completed previously and no documentation of appointment of a surrogate medical decision maker. RN will discuss code status or I will if jose a calls me. Her daughter would be her medical decision maker per [place] law and [employer] policy. Derrick given my card for contact later today from him or pt's jose a. Time spent listening and supporting. I also reviewed our conversation with pt's AR Poole. Dr Casey in to see pt as I was leaving. Case conferenced with Chaplain Martinez and offered visit to Derrick. He declined at this time but knows both Michelle and I can visit in person or by phone with anyone in the family that would like to. Derrick has our card and number to card, given to him this am. [facility] will continue to follow and offer support.
--- NOTE | 2019-09-24 10:53 | NUR ---
DR LI IN TO SEE PT AT 0930. BICARB GTT DECREASED TO 100CC/HR. AN ADDITIONAL PLATELETPHERESIS ORDERED AND WILL BE AVAILABLE AT 1200 (COMING FROM OUTSIDE SOURCE). PT'S DAUGHTER UPDATED AND WILL BE HERE AROUND 1300. PUPILS NOTED TO BE UNEQUAL 5/2MM SLUGGISH. DR LI NOTIFIED. STAT HEAD CT ORDERED.
--- NOTE | 2019-09-24 11:30 | NUR ---
HERNÁNDEZ TEMP PROBE PLACED AT 1000 TO VARIFY TEMP AND MONITOR CORE TEMPS. HERNÁNDEZ TEMP PROBE VARIFIES THAT PT IS HYPOTHERMIC. TEMP IS NOW 91.8; UP FROM 88.2. TORRES GARCIA REMAINS ON PT. PT IS NOW OVER BREATHING VENT. NO GAG, NO SWALLOW, NO COUGH. NO RESPONSE TO PAIN. PT DOES HAVE NORMAL PLANTAR REFLEX. PT TO CT NOW
[2019-09-24 12:22] LABS: Source, Urine Catheter
--- NOTE | 2019-09-24 12:26 | NUR ---
CT OF HEAD COMPLETE. UPON ARRIVAL BACK TO ICU PT OPENED EYES. ABLE TO NOD APPROPRIATELY TO SOME QUESTIONS. NODS HEAD YES TO PAIN; FENT IV GIVEN. ATTEMPTED TO COMBINATION WINDOW INSTALLER HAND TO COMMAND. PT REMAINS VERY SOMULENT. BP STARTED TO TREND DOWN DURING CT SCAN. LEVOPHED INCREASED TO 10MCG AND THEN UP TO 12MCG. NEOSYNEPHRINE INCREASED TO 150MCG. DR LI CALLED AND UPDATED. LABS ORDERED AND SENT. DR BAEZ AT BEDSIDE, WILL NOTIFY THAT HE IS AVAILABLE IF NEEDED FOR INTERVENTION. TEMP UP TO 93.2.
[2019-09-24 12:33] LABS: Mean Platelet Volume 10.4 fL (9.1-12.4); Platelet Count 128 K/mm3 (150-400)
[2019-09-24 12:40] LABS: Hematocrit 16.5 % (33.0-51.0)
[2019-09-24 12:42] LABS: Hemoglobin 5.8 g/dL (11.5-16.0)
[2019-09-24 12:47] LABS: Bilirubin, Urine Neg (Neg); Blood, Urine 1+ (Neg); Glucose Qualitative, Urine 4+ (Neg); Ketones, Urine 1+ (Neg); Leukocyte Esterase, Urine Neg (Neg); Nitrite, Urine Neg (Neg); Protein, Urine Neg (Neg); Specific Gravity, Urine 1.015 (1.003-1.022); Urobilinogen, Urine NORM (Normal); pH, Urine 6.5 (5.0-8.0)
[2019-09-24 12:48] LABS: Anion Gap 18 mmol/L (6-16); Blood Urea Nitrogen 11 mg/dL (8-24); Bun/Creatinine Ratio 20.3 (12.0-20.0); CO2, Blood 20 mmol/L (21-32); Chloride, Blood 101 mmol/L (98-108); Creatinine, Blood 0.54 mg/dL (0.40-1.00); Glomerular Filtration Rate >60 (60-); Glucose, Blood 382 mg/dL (70-99); Magnesium, Blood 1.9 mg/dL (1.6-2.4); Sodium, Blood 139 mmol/L (136-145)
--- NOTE | 2019-09-24 12:49 | NUR ---
HBG 5.8. DR LI NOTIFIED. 2UNITS PRBC'S ORDERED. PLATELETPHORESIS INFUSED W/O ADVERSE REACTION. DR BAEZ CALLED AND UPDATED. PT WILL BE TAKEN TO THE [facility] FOR AN INTERVENTION FOR BLEED. POS BLOOD CX; DR LI NOTIFIED.PT'S DAUGHTER UPDATED.
[2019-09-24 12:51] LABS: International Normalized Ratio 1.6; Prothrombin Time Results 16.7 Sec (9.7-11.5)
[2019-09-24 12:55] LABS: International Normalized Ratio 1.6; Prothrombin Time Results 16.7 Sec (9.7-11.5)
[2019-09-24 13:07] LABS: Appearance, Urine Clear (Clear); Color, Urine Yellow (P-Yellow)
[2019-09-24 13:08] LABS: Bacteria Rare /hpf; Mucus Light (0-Heavy); Red Blood Cells, Urine 0-2 /hpf (0-2); Squamous Epithelial Cells Rare /hpf (Few); White Blood Cells, Urine 0-2 /hpf (0-5)
--- NOTE | 2019-09-24 13:56 | NUR ---
PT TO PALEOLOGY PROFESSOR AT 1315.
--- NOTE | 2019-09-24 15:47 | NUR ---
PT BACK FROM HAND DRY CLEANER AROUND 1520. PT SOMULENT BUT OPENS EYES AND NODS TO VOICE. INSULIN GTT STARTED AT 4UNITS/HR. THE FIRST OF TWO UNITS OF PRBC'S THAT DR LI ORDERED HAS FINISHED INFUSING, SECOND UNIT STARTED. ABLE TO TITRATE PRESSORS DOWN WHILE BLOOD INFUSING. LEVOPHED AT 5MCG, DEEDEE AT 75MCG. SHEATH TO LEFT GROIN; AREA STABLE AND WNL. SHEATH ATTATCHED TO PRESSURE BAG. SHEATH TO BE LEFT IN FOR QUICK ACCESS IN THE EVENT THAT PT STARTS BLEEDING AGAIN AND NEEDS TO BE TAKEN BACK TO THE HAND DRY CLEANER. PT'S DAUGHTER AND S/O AT BEDSIDE. TEMP 96.1
[2019-09-24] MEDS ORDERED: LORA1 PO (16:10)
[2019-09-24] MEDS ORDERED: CETI5 (16:11)
[2019-09-24] MEDS ORDERED: AMPDEX5 PO (16:13)
--- NOTE | 2019-09-24 16:25 | NUR ---
Initial spiritual care note: Several visits with pt's SO, Derrick, and pt's dtr, Tessy. Derrick appears calm. Tessy is tearful and anxious. I provided calm presence and gentle tariff counsel. Also took Tessy through a calming breathing exercise that appeared to help with anxiety. Normalized tessy's tearfulness and framed this in expression of tremendous love for her mom. Pt and family non-gnosticism, but appeared to benefit from tariff counsel and encouragement. I will remain available to pt and family.
[2019-09-24 18:06] LABS: Hematocrit 27.4 % (33.0-51.0); Hemoglobin 9.3 g/dL (11.5-16.0); Mean Platelet Volume 10.1 fL (9.1-12.4); Platelet Count 201 K/mm3 (150-400)
[2019-09-24 18:24] LABS: Calcium, Blood 6.9 mg/dL (8.5-10.1); Magnesium, Blood 1.7 mg/dL (1.6-2.4)
[2019-09-24 18:32] LABS: International Normalized Ratio 1.43
[2019-09-24 18:42] LABS: PCO2 Arterial 27.1 mmHg (35-45); PO2 Arterial 191 mmHg (80-100); pH Blood Arterial 7.46 (7.35-7.45)
--- NOTE | 2019-09-24 19:35 | NUR ---
PT AWAKE AT 1700, ABLE TO WRITE THE WORD HOT. BEAR HUGGER REMOVED. PT NODS HEAD TO WANTING SOME SEDATION TO HELP HER SLEEP WHILE BEING ON THE VENT. PROPOFOL STARTED AT 15MCG. FENT IVP GIVEN FOR PAIN. ART LINE/CENTRAL LINE DRSG TURNED. SHEATH DRSG CHANGE; BOTH OOZING SS FLUID. ABD FIRM BUT NO MORE DISTENDED THAN PREVIOUS HAD BEEN. NO OUT PUT FROM STOMA. LUNGS REMAIN CLEAR BUT ARE SLIGHTLY DIMINISHED TO BASES. LABS CALLED INTO DR LI INCLUDING CRITICAL LACTIC ACID. LABS TO BE REPEATED AT 2400. LEVOPHED REMAINS AT 5MCG, VASOPRESSIN AT 0.04UNITS, NEOSYNEPHRINE AT 75MCG, BICARB GTT AT 100CC/HR. INSULIN REMAINS AT 4UNITS/HR; BS HAVE BEEN DROPPING AROUND 50/HR. DR BAEZ TO BE CALLED IF PT BECOMES UNSTABLE OR BEGINS TO ACTIVELY BLEED AGAIN. REPORT GIVEN TO ONCOMING RN AT BEDSIDE.
--- NOTE | 2019-09-24 20:00 | NUR ---
ASSUMED CARE OF PT AT 1915, REPORT RCV'D FROM AR CAMPOS. PT INTUBATED AND SEDATED. VENT SETTINGS AC 15/300/5/40. SEDATED WITH PROPOFOL 15 MCG/KG/MIN. PT DISPLAYS FACIAL GRIMACING TO NOXIOUS AND PAINFUL STIMULI BUT FAILS TO OPEN EYES OR FOLLOW COMMANDS AT THIS TIME. SWALLOW NOTICED, NO COUGH OR GAG. PUPILS UNEQUAL BUT REACTIVE. LEFT PUPIL 2MM, RIGHT PUPIL 4MM, BRISK REACTION. LUNG SOUNDS CLEAR BILATER UPPER LOBES WITH DIM BASES, L>R. ILEOSTOMY RIGHT ABDOMEN, STOMA PINK/RED, NO OUTPUT IN BAG. ABSENT BT IN ALL 4 QUADRANTS. TEMP HERNÁNDEZ PATENT, DRAINING CLEAR YELLOW URINE. PT HAS MIDLINE INCICION WITH PICA DRESSING AND WOUND VAC. WOUND VAC SECURELY IN PLACE, NO LEAKS. DRESSING HAS SMALL AMOUNT OF MILLY RED BLOOD, WILL MONITOR FOR INCREASING AMOUNT. SKIN HAS MOTTLING AND PETECHIAE SCATTERED T/O. MOST SEVERE PETECHIA TO UPPER BACK AND BILATERAL UPPER THIGHS. PRESSURE ULCER TO COCCYX, REPLACED MEPILEX THIS SHIFT. SEE PICTS IN CHART. MEDIPORT TO RIGHT UPPER CHEST, NS TKO. LEFT GROIN SHEATH IN PLACE, SITE SOFT, NO EVIDENCE OF HEMATOMA, DRESSING C/D/I. RIGHT FEMORAL ARTLINE, CENTRAL LINE. ART LINE ZEROED, DRESSING C/D/I-SCANT AMOUNT OF BLOOD NOTICED. RIGHT AC PERIPHERAL IV SL. LEVOPHED @ 5MCG/MIN, VASOPRESSIN @ 0.04 UNITS/MIN, NEOSYNEPHRINE @ 75 MCG/MIN, D5 BICARB @ 100 ML/HR, INSULIN @ 4 UNITS/HR (Q1 CBG), KCL, CALCIUM GLUCONATE. SEE FULL SHIFT ASSESSMENT
[2019-09-24 23:59] LABS: Hematocrit 26.1 % (33.0-51.0); Hemoglobin 9.2 g/dL (11.5-16.0); Platelet Count 189 K/mm3 (150-400)
[2019-09-25 00:15] LABS: International Normalized Ratio 1.5; Prothrombin Time Results 15.7 Sec (9.7-11.5)
[2019-09-25 00:18] LABS: Calcium, Blood 6.6 mg/dL (8.5-10.1); Magnesium, Blood 1.5 mg/dL (1.6-2.4); Phosphorus, Blood 2.3 mg/dL (2.5-4.9)
[2019-09-25 05:52] LABS: PCO2 Arterial 31.6 mmHg (35-45); PO2 Arterial 74.4 mmHg (80-100); pH Blood Arterial 7.53 (7.35-7.45)
[2019-09-25 06:08] LABS: Hematocrit 24.7 % (33.0-51.0); Hemoglobin 8.9 g/dL (11.5-16.0); Mean Corpuscular HGB 29.2 pg (26.0-34.0); Mean Corpuscular Volume 81 fL (80-100); NRBC ABSOLUTE 0.28 K/mm3 (0.00-0.02); NRBC Auto 1.2 /100 WBC (0.0-0.2); Platelet Count 178 K/mm3 (150-400); RDW Coefficient Variation 14.6 % (11.7-14.2); RDW Standard Deviation 42.5 fL (35.1-46.3); Red Blood Cell Count 3.05 M/mm3 (3.80-5.20); White Blood Cell Count 22.82 K/mm3 (4.00-11.30)
--- NOTE | 2019-09-25 06:12 | NUR ---
SHIFT SUMMARY PT STABLE OVERNIGHT. PT'S BLOOD PRESSURE STABILIZED AND NEOSYNEPHRINE PLACED ON STANDBY AT 0000. LEVOPHED @ 6 MCG/MIN, VASOPRESSIN @ 0.04 U/MIN TO MAINTAIN MAP>65. D5 BICARB @ 100 ML/HRS. INSULIN PLACED ON STANDBY AT 2300 WHEN CBG WAS 141, FOLLOW UP BLOOD GLUCOSE 2 HOURS LATER REMAIN UNCHANGED AT 141. VENT SETTINGS AC 15/300/5/30%, PT'S O2 SATS 100% T/O SHIFT, LUNG SOUNDS REMAIN UNCHANGED. SCANT AMOUNT OF SECRETIONS FROM ETT. PROPOFOL REMAINS AT 15 MCG/KG/MIN. PT CONTINUES TO GRIMACE WITH NOXIOUS AND PAINFUL STIMULI. FAILS TO FOLLOW COMMANDS BUT NAIK. PUPILS CURRENTLY 1MM EQUAL AND REACTIVE. PT NSR WITH HR IN THE LOW 80'S. NO OUTPUT FROM OGT. SCANT AMOUNT OF WATERY OUTPUT IN ILEOSTOMY BAG. 400 ML CLEAR YELLOW URINARY OUTPUT FROM HERNÁNDEZ. LEFT GROIN SHEATH REMAINS UNCHANGED FROM START OF SHIFT. RIGHT FEMORAL CENTRAL/ART LINE DRESSING CHANGED THIS SHIFT D/T SS FLUID DRAINING AROUND DRESSING. WOUND VAC AND DRESSING REMAIN IN PLACE AND UNCHANGED FROM START OF SHIFT. NO CHANGE IN ABDOMINAL DISTENTION OR WITH PALPATION. WILL REPORT TO DAYSNJFT NURSE
[2019-09-25 06:24] LABS: Alanine Aminotransfer (ALT/SGP 30 U/L (12-78); Albumin, Blood 1.1 g/dL (3.4-5.0); Albumin/Globulin Ratio 0.6 (0.8-1.8); Alk Phos 57 U/L (50-136); Anion Gap 9 mmol/L (6-16); Aspartate Aminotrans (AST/SGOT 51 U/L (12-37); Bilirubin, Total 1.5 mg/dL (0.1-1.0); Blood Urea Nitrogen 8 mg/dL (8-24); Bun/Creatinine Ratio 17.6 (12.0-20.0); CO2, Blood 28 mmol/L (21-32); Calcium, Blood 6.4 mg/dL (8.5-10.1); Chloride, Blood 101 mmol/L (98-108); Creatinine, Blood 0.45 mg/dL (0.40-1.00); Globulin, Blood 1.8 g/dL (2.2-4.0); Glomerular Filtration Rate >60 (60-); Glucose, Blood 173 mg/dL (70-99); International Normalized Ratio 1.61; Potassium, Blood 2.7 mmol/L (3.5-5.5); Prothrombin Time Results 16.8 Sec (9.7-11.5); Sodium, Blood 138 mmol/L (136-145); Total Protein, Blood 2.9 g/dL (6.4-8.2)
[2019-09-25 06:28] LABS: BAND PERCENT MAN 14 % (0-8); BASOPHILS PERCENT MAN 0 % (0-2); EOSINOPHILS PERCENT MAN 0 % (0-6); LYMPHOCYTES ABSOLUTE MAN 1.59 K/mm3 (0.84-5.20); LYMPHOCYTES PERCENT MAN 7 % (21-46); METAMYELOCYTE ABSOLUTE MAN 0.45 K/mm3 (0.00-0.00); METAMYELOCYTE PERCENT MAN 2 % (0-0); MONOCYTES ABSOLUTE MAN 1.14 K/mm3 (0.16-1.47); MONOCYTES PERCENT MAN 5 % (4-13); NEUTROPHILS ABSOLUTE MAN 19.62 K/mm3 (1.96-9.15); SEG NEUTROPHILS PERCENT MAN 72 % (41-73); TOTAL CELLS COUNTED 100
[2019-09-25 09:37] LABS: Vancomycin, Trough 25.3 ug/mL (5.0-10.0)
--- NOTE | 2019-09-25 10:32 | NUR ---
Case conferenced with Chandler Poole. Zulema reports Pt still intubated but is showing some improvement. Palliative Care will F/U at a later time.
--- NOTE | 2019-09-25 11:25 | NUR ---
PT ASSESSED THIS AM AT 0730. PT SEDATED ON 15MCG OF PROPOFOL FOR MECH VENT. PT OPENS EYES SPONT, RESPONDS TO VERBAL, NODS HEAD APPROPRIATELY AND FOLLOWS SIMPLE COMMANDS. PT NODS HEAD NO TO PAIN AND YES TO COMPFORTABLE. PT GRIMACES WITH MOVEMENT; FENT GIVEN PRIOR TO TURN AND CARE. ABD SLIGHTLY FIRM/DISTENDED WITH ABSENT BOWEL TONES. STOMA RED AND APPEARS HEALTHY; SCANT OUTPUT. NG CLAMPED DUW TO LITTLE OUTPUT. DR LI IN EARLY THIS AM TO ASSESS PT. MAG, CA, K+, REPLACED. BICARB GTT DC'D. LEVOPHED AT 6MCG THIS AM AND INCREASED TO 7MCG. PT'S DAUGHTER AND S/O UPDATED. PT'S DAUGHTER IS BACK IN [place]. PT PALE, VERY EDEMATOUS T/O, W POOR CAP REFILL. CENTRAL LINE/ART LINE SLOWLY OOZING SOME SS. LEFT ART SHEATH TO BE DC'D PER DR BAEZ. IV NUTRITION TO BE STARTED. DR JACKSON IN TO SEE PT, NO NEW ORDERS. DR PENA IN TO SEE PT NOW. FLUID
--- NOTE | 2019-09-25 14:14 | NUR ---
PT PLACED ON INSULIN SQ W S/S COVERAGE. LUNGS CLEAR, VERY DIMINISHED TO LLL. SATS 98-100% ON 35% FIO2. NO CHANGE FROM PRIOR ABD ASSESSMENT. PT STARTING TO HAVE WEEPING EDEMA, LARGE AMT OF FLUID WEEPING FROM RIGHT ARM. CLINIMIX GTT STARTED; IT'S TO BE CHANGED OUT WITH TPN AT 1700. LEFT ART SHEATH DC'D. MAUNAL PRESSURE HELD FOR 20MIN; HEMOSTASIS AT 1250. RUBY DRSG PLACED. SITE CHECKED Q15MIN X4, AND NOW Q30 X2. SITE REMAINS SOFT, THERE IS SOME SS DRAINAGE, SHE HAS WEEPING EDEMA.
[2019-09-25 14:19] LABS: Hematocrit 23.5 % (33.0-51.0); Hemoglobin 8.3 g/dL (11.5-16.0)
[2019-09-25 14:34] LABS: Magnesium, Blood 1.8 mg/dL (1.6-2.4); Phosphorus, Blood 2.3 mg/dL (2.5-4.9); Potassium, Blood 3.9 mmol/L (3.5-5.5)
--- NOTE | 2019-09-25 16:11 | NUR ---
PT SLEEPING, CONT TO AROUSE TO VOICE, FOLLOWS SIMPLE COMMANDS, AND NODS HEAD APPROPRIATELY. SWELLING NOTED TO LEFT UPPER NECK UNDER EAR. AREA TIGHT AND TENDER. DR LI NOTIFIED AND WAS AT BEDSIDE TO EXAM PT. ULTRASOUND ORDERED. LEVOPHED INCREASED TO 9MCG. U/O SLOWING DOWN, 200CC EMPTIED, RATE AROUND 15-20CC/HR; DR LI NOTIFIED. NA+PHOS INFUSING. PT DENIES ABD PAIN AT THIS TIME.
--- NOTE | 2019-09-25 18:40 | NUR ---
U/O CONT TO SLOW; DR LI PLACED A CONSULT FOR DR MCGRATH IN AM. TPN STARTED. LEVOPHED AT 8MCG. PT NODDED YES TO WANTING PAIN MEDS AND YES TO WANTING TO BE MORE SEDATED/SLEEPIER. PROPOFOL INCREASED TO 25MCG, FENT 50MCG IVP GIVEN. LEFT GROIN REMAINS STABLE.
--- NOTE | 2019-09-25 19:00 | NUR ---
ASSUMED CARE ASSUMED CARE OF PATIENT. REMAINS INTUBATED- AC 15/300/5/30%. RR 16-20. SEDATED WITH PROPOFOL @ 25MCG/KG/MIN. OPENS EYES TO VERBAL STIMULI. FOLLOWS SIMPLE COMMANDS. MOVES ALL EXTREMITIES WEAKLY. DENIED C/O PAIN BY SHAKING HEAD "NO." BILATERAL SOFT WRIST RESTRAINTS IN PLACE TO PREVENT SELF-EXTUBATION. MONITOR SHOWS NSR, RATE 80. BP STABLE WITH LEVOPHED CURRENTLY AT 8MCG/MIN AND VASOPRESSIN AT 0.04UNITS/MIN. TPN INFUSING @ 55CC/HR PER ORDER. NG TO LEFT NARE- CLAMPED AT THIS TIME. MIDLINE ABD INCISION WITH TASH DRSG INTACT- OLD BLOODY DRAINAGE NOTED TO DRSG. ILEOSTOMY NOTED TO RLQ- STOMA IS BEEFY RED. SMALL AMOUNT OF SEROUS DRAINAGE NOTED. HERNÁNDEZ PATENT AND DRAINING SMALL AMOUNT OF ANTONIA URINE. ACCORDING TO DAY SHIFT RN, IS AWARE OF DECREASED URINE OUTPUT. 3+ PITTING EDEMA NOTED T/O. SCATTERED PETECHIAE NOTED. WEEPING EDEMA NOTED. RIGHT FEMORAL CENTRAL LINE AND RIGHT FEMORAL ARTERIAL LINE NOTED- DRSG D/I AT THIS TIME. SEE SHIFT ASSESSMENT FOR FULL ASSESSMENT.
--- NOTE | 2019-09-25 22:33 | NUR ---
URINE OUTPUT URINE OUTPUT HAS BEEN APPROXIMATELY 22-27CC/HR OVER THE LAST SEVERAL HOURS. NO OTHER ACUTE CHANGES IN PT'S STATUS. DISCUSSED WITH DR. LI AT THIS TIME AND PLAN IS TO CONTINUE TO MONITOR T/O NOC AND CONSULT DR. MCGRATH IN AM.
[2019-09-26 04:48] LABS: Hematocrit 22.4 % (33.0-51.0); Hemoglobin 7.9 g/dL (11.5-16.0); Mean Corpuscular HGB 29.5 pg (26.0-34.0); Mean Corpuscular HGB Conc 35.3 g/dL (31.5-36.5); Mean Platelet Volume 10.5 fL (9.1-12.4); NRBC ABSOLUTE 0.53 K/mm3 (0.00-0.02); NRBC Auto 2.4 /100 WBC (0.0-0.2); Platelet Count 148 K/mm3 (150-400); RDW Coefficient Variation 14.9 % (11.7-14.2); RDW Standard Deviation 44.5 fL (35.1-46.3); Red Blood Cell Count 2.68 M/mm3 (3.80-5.20)
[2019-09-26 04:54] LABS: Mean Corpuscular Volume 84 fL (80-100)
[2019-09-26 05:01] LABS: International Normalized Ratio 1.32; Prothrombin Time Results 13.9 Sec (9.7-11.5)
[2019-09-26 05:02] LABS: Alanine Aminotransfer (ALT/SGP 29 U/L (12-78); Albumin, Blood 0.9 g/dL (3.4-5.0); Albumin/Globulin Ratio 0.4 (0.8-1.8); Alk Phos 99 U/L (50-136); Anion Gap 3 mmol/L (6-16); Aspartate Aminotrans (AST/SGOT 27 U/L (12-37); Bilirubin, Total 0.8 mg/dL (0.1-1.0); Blood Urea Nitrogen 9 mg/dL (8-24); Bun/Creatinine Ratio 23.6 (12.0-20.0); CO2, Blood 31 mmol/L (21-32); Calcium, Blood 6.5 mg/dL (8.5-10.1); Chloride, Blood 100 mmol/L (98-108); Creatinine, Blood 0.38 mg/dL (0.40-1.00); Globulin, Blood 2.3 g/dL (2.2-4.0); Glomerular Filtration Rate >60 (60-); Glucose, Blood 128 mg/dL (70-99); Magnesium, Blood 1.7 mg/dL (1.6-2.4); Phosphorus, Blood 2.3 mg/dL (2.5-4.9); Potassium, Blood 3.6 mmol/L (3.5-5.5); Sodium, Blood 134 mmol/L (136-145); Total Protein, Blood 3.2 g/dL (6.4-8.2)
[2019-09-26 05:08] LABS: PCO2 Arterial 35.4 mmHg (35-45); PO2 Arterial 108 mmHg (80-100); pH Blood Arterial 7.56 (7.35-7.45)
[2019-09-26 05:24] LABS: BAND PERCENT MAN 10 % (0-8); BASOPHILS PERCENT MAN 0 % (0-2); EOSINOPHILS ABSOLUTE MAN 0.22 K/mm3 (0.00-0.68); EOSINOPHILS PERCENT MAN 1 % (0-6); LYMPHOCYTES ABSOLUTE MAN 0.66 K/mm3 (0.84-5.20); LYMPHOCYTES PERCENT MAN 3 % (21-46); MONOCYTES ABSOLUTE MAN 1.11 K/mm3 (0.16-1.47); MONOCYTES PERCENT MAN 5 % (4-13); SEG NEUTROPHILS PERCENT MAN 81 % (41-73); TOTAL CELLS COUNTED 100
--- NOTE | 2019-09-26 06:35 | NUR ---
SHIFT SUMMARY NO ACUTE CHANGES. REMAINS INTUBATED- SAME VENT SETTINGS EXCEPT FIO2 NOW @ 25%. SEDATED WITH PROPOFOL AT 25MCG/KG/MIN. SHORT SEDATION VACATION DONE EARLIER IN SHIFT. PT OPENS EYES TO STIMULI. ATTEMPTS TO FOLLOW SIMPLE COMMANDS. OCCASIONALLY NODS HEAD YES/NO APPROPRIATELY. BILATERAL SOFT WRIST RESTRAINTS IN PLACE TO PREVENT SELF-EXTUBATION. PT MOVES ALL EXTREMITIES WEAKLY. MONITOR SHOWS SR. BP STABLE WITH LEVOPHED BETWEEN 5-8MCG/MIN- NOW INFUSING @ 5MCG/MIN. VASOPRESSIN INFUSING @ 0.04UNITS/MIN. TPN INFUSING @ 55CC/HR PER ORDER. NG TO LIS WITH SMALL AMOUNT DARK BROWN DRAINAGE. MIDLINE ABD INCISION WITH TASH DRSG INTACT- OLD BLOODY DRAINAGE NOTED. RARE BTs TO UPPER QUADRANTS. ILEOSTOMY INTACT TO RLQ WITH SCANT SEROUS DRAINAGE. STOMA IS BEEFY RED. RIGHT FEMORAL CENTRAL LINE AND ARTERIAL LINE PATENT- DRSG INTACT. MEDIPORT NOTED. MEDICATED WITH FENTANYL 50MCG IV X 1 DOSE THIS AM. WILL REPORT TO ONCOMING SHIFT WHEN AVAILABLE. HERNÁNDEZ PATENT WITH DECREASED URINE OUTPUT- 180CC TOTAL THIS SHIFT.
--- NOTE | 2019-09-26 08:00 | NUR ---
CARE ASSUMED PT SEDATED WITH PROPOFOL 25 MCG, VENT SETTINGS: AC 15, FIO2: 25%, PEEP 5, Vt 300. Pts RR 18, SPO2 >95%, Vt 300'S. Pt currently on levophed 5 mcg, vasopressin 0.04 units, CPN 55 mL hr. MAPs >65, will titrate pressors as able. HR 80's, sinus with inverted T waves. Anasarca present with weeping. Distended abd with absent bowel tones. TASH dressing to midline abd incision. Tsaile beefy stoma to RUQ with clear yellow drainage, no stool present. Left femoral access site WNL AND RIGHT FEMORAL ART LINE AND CENTRAL LINE, WNL, DRESSINGS CDI. ART LINE ZEROED. KENYETTA CARVAJAL, RAMILA, AND JEN IN TO ASSESS PT. WILL TITRATE PRESSORS DOWN ABLE.
--- NOTE | 2019-09-26 10:30 | NUR ---
ASSUMED CARE OF PT AT 1030 FROM DIOR JOYNER
--- NOTE | 2019-09-26 11:14 | NUR ---
CARE HANDOFF TO DIOR JOYNER AT 9578
--- NOTE | 2019-09-26 12:00 | NUR ---
SHIFT UPDATE PTS LEVOPHED TITRATED DOWN AND VASOPRESSIN STOPPED. MAP'S DECREASED BELOW 60 AND LEVOPHED TITRATED UP UNTIL MAP'S >65. PTS SCRAL DRESSING CHANGED. PTS URINE OUTPUT INCREASING. PT IS MORE ALERT, OPENING EYES IN RESPONSE TO VERBAL STIMULI, ANSWERING YES/NO QUESTIONS. NO CHANGE IN PROPOFOL. VENT SETTINGS CHANGED BY DR. LI TO AC 12, FIO2 25%, PEEP 5, Vt 300's. DR. JACKSON AT BEDSIDE AT 1443, NO NEW ORDERS.
[2019-09-26 12:26] LABS: Vancomycin, Trough 12.6 ug/mL (5.0-10.0)
--- NOTE | 2019-09-26 14:44 | NUR ---
PROVIDER UPDATE: TALKED WITH CARRIE HAMMOND THIS AM, INFORMED OF HIGH RISK SUICIDE SCORING, CARRIE STATES SHE WILL ASSESS PATIENT RISK DURING TELEHEALTH CONSULT AND ORDER 1:1 BEDSIDE SITTER IF NECESSARY. NO NEW ORDERS RECEIVED AT THIS POINT.
[2019-09-26 16:49] LABS: Hemoglobin 8.2 g/dL (11.5-16.0)
--- NOTE | 2019-09-26 18:26 | NUR ---
SHIFT SUMMARY PT REMAINS INTUBATED, VENT SETTINGS: AC12, PEEP 5, FIO2: 25%, Vt 300. SEDATED WITH PROPOFOL AT 25 MCG. SHORT SEDATION VACATION DONE AND PT COULD ANSWER YES/NO QUESTION AND FOLLOWS SIMPLE COMMANDS. PT OPENS EYES TO VERBAL STIMULI. BILATERAL WRIST RESTRAINTS REMAIN IN PLACE TO PREVENT SELF-EXTUBATION. SINUS TACH (110), SBP 80'S TO 90'S AND DBP 50'S TO 60'S. LEVOPHED BETWEEN 4-10 MCG/MIN - NOW INFUSING @ 7 MCG. PTS BILATERAL LOWER EXTREMITIY PULSES REQUIRE DOPPLAR. NO CHANGE IN EDEMA. CPN INFUSING @ 55 ML/HR. NG TO LEFT NARE WITH GREEN DRIANGE. MIDLINE ABD INCISION WITH TASH DRSSING INTACT, BLOODY DISCHARGE UNCHANGED. DR. JACKSON AWARE OF DRESSING STATE AND TASH VAC MALFUNCTION. NO NEW ORDERS. BTs ACTIVE, INCREASED OUTPUT FROM ILEOSTOMY FROM YELLOW TO PINK/LIQUID SEDIMENT. INCREASED URINARY OUTPUT TO 550 ML CLEAR/YELLOW, DR. MCGRATH ASKED TO HAVE INTRA ABDOMINAL PRESSURE CHECKED, PRESSURE READING OF 8 mmHg. RIGHT FEMORAL CENTRAL LINE INFUSING WELL AND ART LINE WNL AND DRAWS WITHOUT DIFFICULITY. MEDIPORT SITE WNL AND INFUSING WITHOUT DIFFICULITY. WILL REPORT TO ONCOMING SHIFT.
--- NOTE | 2019-09-26 19:00 | NUR ---
ASSUMED CARE NOTE: ASSUMED CARE OF PT AT 1900, RECEVIED REPORT FROM DIOR JOYNER, AND FRONT DESK SPECIALIST JOSE. PT IS ALERT AND ABLE TO FOLLOW COMMANDS. PT IS ABLE TO COMMUNICATE WITH PEN AND PAPER AND CARE ANSWER YES/NO QUESTIONS WITH HEAD GESTURES. PT DENIES ANY PAIN AT THIS TIME. PT IS ON VENT WITH SETTINGS @ AC12/300/5/25%, SPO2 @ 98% PT HAS SCANT AMOUNT OF THICK WHITE SPUTUM WHEN SUCTION. PT BECOMES AGITATED WITH ORAL CARE AND ATTEMPTS TO REACH FOR TUBE, WROTE " MAKES ME GAG". PT WAS EDUCATED ON THE IMPORTANCE ORAL CARE, SHE THEN AGREED TO IT. PT IS CURRENTLY ON 30MCG/KG/MIN OF PROPOFOL. ABDOMINAL SURGICAL DRESSING IS INTACT, HOWEVER THERE IS DRY BLOOD NOTED ON DRESSING, PHYSICAN IS AWARE, IS DUE TO CHANGE TOMORROW, WOUND VAC TO DRESSING NOT FUNCTIONING. CENTRAL LINE AND ART LINE TO THE RIGHT FEMORAL SITE IS WEEPING, WLL CHANGE DRESSING. RIGHT FEMORAL SURGICAL SITE IS ALSO WEEPING, WILL CHANGE DRESSING. PT IS VERY EDAMATOUS T/O, WEEPING YELLOW FLUID NOTED TO RIGHT UPPER EXTREMITY, DRY FLOW IN PLACE. MEDIPORT IS WNL, DRESSING INTACT. BLE PEDAL PULSES FOUND WITH DOPPLER. BUE ARE FAINT. HERNÁNDEZ PATNET AND DRAINING CLEAR YELLOW URINE. TEMP WNL, BP STABLE MAP ABOVE 60 WITH LEVOPHED AT 8MCG/MIN. VASOPRESSIN ON SB. BILAT SWR IN PLACE. WILL CONTINUE TO MONITOR PT T/O SHIFT.
--- NOTE | 2019-09-27 | NUR ---
UPDATE: CHANGED DRESSING TO CENTRAL/ARTLINE RIGHT FEMORAL SITE. SITE CONTINUES TO OOZE SEROSANGUINEOUS FROM SKIN POURS AND SITE. LEFT FEMORAL CATH INSERTION SITE CHANGED, GAUZE AND TEGADERM APPLIED. PT RECEVIED A BEDBATH, AND WAS GIVEN CATH AND SKIN CARE. PT REPOSITIONED. WILL CONTINUE TO MONITOR PT.
[2019-09-27 03:40] LABS: Hematocrit 21.3 % (33.0-51.0); Hemoglobin 7.3 g/dL (11.5-16.0); Mean Corpuscular HGB 29.6 pg (26.0-34.0); Mean Corpuscular HGB Conc 34.3 g/dL (31.5-36.5); Mean Corpuscular Volume 86 fL (80-100); Mean Platelet Volume 11.1 fL (9.1-12.4); NRBC ABSOLUTE 0.38 K/mm3 (0.00-0.02); NRBC Auto 1.9 /100 WBC (0.0-0.2); Platelet Count 141 K/mm3 (150-400); RDW Standard Deviation 46.7 fL (35.1-46.3); Red Blood Cell Count 2.47 M/mm3 (3.80-5.20); White Blood Cell Count 19.87 K/mm3 (4.00-11.30)
[2019-09-27 03:59] LABS: Alanine Aminotransfer (ALT/SGP 26 U/L (12-78); Albumin, Blood 0.8 g/dL (3.4-5.0); Albumin/Globulin Ratio 0.3 (0.8-1.8); Alk Phos 156 U/L (50-136); Anion Gap 1 mmol/L (6-16); Aspartate Aminotrans (AST/SGOT 19 U/L (12-37); Bilirubin, Total 0.8 mg/dL (0.1-1.0); Blood Urea Nitrogen 9 mg/dL (8-24); Bun/Creatinine Ratio 23.9 (12.0-20.0); CO2, Blood 32 mmol/L (21-32); Calcium, Blood 6.9 mg/dL (8.5-10.1); Chloride, Blood 109 mmol/L (98-108); Creatinine, Blood 0.38 mg/dL (0.40-1.00); Globulin, Blood 2.7 g/dL (2.2-4.0); Glomerular Filtration Rate >60 (60-); Glucose, Blood 128 mg/dL (70-99); Magnesium, Blood 1.7 mg/dL (1.6-2.4); Phosphorus, Blood 2.4 mg/dL (2.5-4.9); Potassium, Blood 3.7 mmol/L (3.5-5.5); Sodium, Blood 142 mmol/L (136-145); Total Protein, Blood 3.5 g/dL (6.4-8.2); Triglycerides 118 mg/dL (30-160)
[2019-09-27 04:15] LABS: BAND PERCENT MAN 5 % (0-8); BASOPHILS PERCENT MAN 0 % (0-2); EOSINOPHILS PERCENT MAN 0 % (0-6); LYMPHOCYTES ABSOLUTE MAN 0.99 K/mm3 (0.84-5.20); LYMPHOCYTES PERCENT MAN 5 % (21-46); MONOCYTES ABSOLUTE MAN 0.79 K/mm3 (0.16-1.47); MONOCYTES PERCENT MAN 4 % (4-13); MYELOCYTE ABSOLUTE MAN 0.19 K/mm3 (0.00-0.00); MYELOCYTE PERCENT MAN 1 % (0-0); NEUTROPHILS ABSOLUTE MAN 17.88 K/mm3 (1.96-9.15); SEG NEUTROPHILS PERCENT MAN 85 % (41-73); TOTAL CELLS COUNTED 100
--- NOTE | 2019-09-27 04:39 | NUR ---
SEDATION VACATION AND VENT WEANING TRIAL. PROPOFOL ON SB AT 0439, PT WAS ALERT AND ABLE TO FOLLOW DIRECTIONS. PT WAS ON SPONTANEOUS PRESSURE SUPPORT 10, PEEP 5 AND SPO2 OF 25% WITH SPO2 OF 98% PT PASSED TRIAL. SHE WAS PULLING GOOD VOLUMES, AND RR WAS BETWEEN 15-18. BP WAS MAINTATINED T/O AND HR WAS BETWEEN 100-110. PT WAS BECOMING UNCOMFORTABLE AND WROTE THAT SHE WAS IN 8/10 PAIN. PT WAS GIVEN FENTYNAL PER ORDER. SEDATION RESTARTED, CURRENTLY AT 30MCG/KG/MIN OF PROPOFOL. PT BACK ON PREVIOUS VENT SETTING OF AC12/300/5/25%
--- NOTE | 2019-09-27 06:20 | NUR ---
SHIFT SUMMARY: NO MAJOR CHANGES T/O SHIFT. PT REMAINS ON SAME VENT SEETINGS OF AC12/300/5/25%, SPO2 ABOVE 95% SCANT AMOUNTS OF THIN WHITE SPUTUM. NG TUBE TO INTERMIT SUCTION , 75ML OF GREEN BILE NOTED. VVS, AFEBRILE, LEVOPHED AT 7MCGMIN. PT IN SINUS RHYTHM WITH HR AT 90-110. ABDOMINAL DRESSING HAS SEROSANGUINEOUS FLUID, AND DRIED BLOOD. ILEOSTOMY PINK AND MOIST, DRAINING SEROSENGUENEOUS FLUID. PT IS WEEPING T/O, LINES CHANGED IN ATTEMPT TO KEEP SKIN DRY. CENTRAL/ARTLINE DRESSING CHANGED, AND LEFT FEMORAL CATH INSERTION SITE CHANGED. HERNÁNDEZ DRAINING WELL TO GRAVITY, CLEAR AND YELLOW, GOOD URINE OUTPUT 3100ML. BEDBATH GIVEN. PT REPOSITIONED Q2H. TKO RUNNING THROUGH [employer]. WILL CONTINUE TO MONITOR PT UNTIL REPORT IS GIVEN TO ONCOMING SHIFT.
--- NOTE | 2019-09-27 08:39 | NUR ---
CARE ASSUMED CARE ASSUMED AT 0700 FROM NIGHTSHIFT. PT CURRENTLY SEDATED AND VENTED. AC: 12, PEEP 5, Vt 300, Fio2 25%. PTS CURRENT RR 12, HR 82, MAP > 65, SPO2 100. CURRENTLY ON LEVOPHED 8 MCG/MIN AND PROPOFOL 30 MCG/KG/MIN. NSR. VSS. LUNG SOUNDS REMAIN CLEAR AND DIMINISHED AT BASES. PT OPENING EYES TO NOXIOUS STIMULI. GERNEARLIZED EDEMA T/O WITH WEEPING, HAS IMPROVED SINCE YESTERDAY. RIGHT FEMORAL SITE, WNL WITH WEEPING AROUND THE DRESSING. ART LINE ZEROED AND CENTRAL LINE FLUSHED WITH 20 CC NS AND CURRENTLY INFUSING. MEDIPORT SITE, WNL, INFUSING. BOWEL TONES ACTIVE, ILEOSTOMY BAG WITH SMALL AMOUNT OF PINK/YELLOW WATERY OUTPUT. STOMA PINK AND BEEFY. CPN 55 CC/HR. DR. CARVAJAL AND DR. LI IN TO SEE PT.
[2019-09-27 09:31] LABS: Hematocrit 21.4 % (33.0-51.0); Hemoglobin 7.2 g/dL (11.5-16.0)
--- NOTE | 2019-09-27 14:38 | NUR ---
SEDATION VACATION/1200 UPDATE PT CONTINUES TO REST, TITRATING DOWN LEVO TOLERATED. PROPOFOL AT 30, WAS SHUT OFF FOR SEDATION VACATION AROUND 0910 THIS MORNING, PT WOKE, WAS TRACKING AND FOLLOWING SIMPLE COMMANDS, WROTE A NOTE ON PAPER ASKING ABOUT ETT, REPORTED PAIN. MEDICATED PER MAR AND RESEDATED. LS REMAIN CLEAR, VENT SETTINGS UNCHANGED, MINUTE VOLUMES DECREASED TO 3.5-4.0 AFTER FENTANYL BUT RETURNED TO BASELINE 4.0-6.0 AFTER FENTANYL EFFECTS SUBSIDED. DR. JACKSON IN TO ASSESS PATIENT, AWARE OF ACTIVE BT AND DECREASED NGT OUTPUT. NEW ORDER TO CHANGE MIDLINE ABD DRESSING, NO OTHER ORDERS AT THIS TIME.
--- NOTE | 2019-09-27 15:49 | NUR ---
UPDATE DR. BAEZ IN TO SEE PATIENT RE: IVC FILTER, CONSENT OBTAINED OVER THE PHONE FROM PATIENT'S DAUGHTER. BLOOD TRANSFUSION COMPLETED, CPN ON STANDBY. PT TO [employer] AT 1550 WITH RT AND [employer] STAFF, LEVO AND PROPOFOL INFUSING.
--- NOTE | 2019-09-27 18:32 | NUR ---
END OF SHIFT SUMMARY PT CONTINUES TO BE VENTED AND SEDATED. LEVO @ 5 MCG AND PROPOFOL @ 30 MCG. AC 12, FI02 25%, Vt 300, PEEP 5. PTS CURRENT SPO2 100%, MAP 80, AND HR 80'S. LUNG SOUNDS CLEAR. PT WAS TAKEN TO CHIEF CLERK TO HAVE IVC PLACED DUE TO DVT 1550. PROPOFOL WAS INCREASED TO 50 MCG DURING PROCEDURE AND REDUCED TO 30, BEFORE ARRIVING BACK TO ICU FROM CHIEF CLERK 1700. RIGHT IJ SITE ACCESS. RUBY DRESSING IN PLACE. PT APPEARS TO BE RECOVERING WELL FROM PROCEDURE. VSS. PT GIVEN 1 UNIT OF RBC DUE TO DECREASED H&H BEFORE LEAVING FOR PROCEDURE. TOLERATED WELL. EDEMA HAS DECREASED, CONTINOUS WEEPING T/O. BILATERAL LOWER PULSES STILL REQUIRE DOPPLER. BOWEL TONES ACTIVE. CPN INFUSING AT 55 CC/HR. OSTOMY CHANGED AND HAS DECREASED OUTPUT SINCE. NG LIS WITH 225 CC OUTPUT. DRESSINGS CHANGED ON CENTRAL LINE. LEFT FEMORAL SITE, MULTIPLE DRESSING CHANGES DUE TO CONTINOUS WEEPING. PT RESPONSED TO NOXIOUS STIMULI AND OPENS EYES OCCASIONALLY. IN THE MORNING PT WAS ABLE TO USE PEN AND PAPER TO COMMUNICATE. HERNÁNDEZ IN PLACE WITH INCREASED URINE OUTPUT. PTS VSS THROUGHOUT SHIFT.
--- NOTE | 2019-09-27 22:50 | NUR ---
ASSUMED CARE NOTE: ASSUMED CARE OF PT AT 1900, RECEVIED REPORT FROM JOSE STUDENT NURSE AND DIOR RN. PT IS ON VENT WITH SETTINGS AT AC12/300/5/25%, WITH SPO2 ABOVE 95%, PT RESPONDS TO VERBAL AND PAINFUL STIMULI. PT LUNG SOUNDS ARE DIM IN THE BASES. SCANT AMOUNT OF THIN WHITE SPUTUM NOTED WHEN SUCTIONED. NG TUBE IN PLACE, SMALL AMOUNT OF GREEN/YELLOW OUTPUT NOTED. PT IS IN SINUS RHYTHM WITH HR IN THE 80'S. VSS. LEVOPHED AT 5MCG/MIN. PT IS AFEBRILE. PT'S STOMA IS PINK AND MOIST, SEROSANGUANIOUS FLUID NOTED IN ILEOSTOMY BAG. MIDLINE ABDOMINAL DRESSING SITE C/D/I. RIGHT FEMORAL CENTRAL/ARTLINE DRESSING ARE INTACT, HOWEVER IS WEEPING THROUGH INSERTION SITES. LEFT FEMORAL CATH INSERTION SITE WEEPING, WILL CHANGE. MEDIPORT DRESSING C/D/I, TKO OF NS RUNNING THROUGH. TEMP HERNÁNDEZ PATNET AND DRAINING CLEAR YELLOW URINE. BLE +2 EDEMA, PULSES FOUND WITH DOPPLER. BUE PLUSES ARE FAINT. PT IS CURRENTLY BEING SEDATED WITH 30MCG/KG/MIN PROPOFOL. PLAN IS TO TITRATE LEVOPHED DOWN THIS SHIFT. WILL CONTINUE TO MONITOR PT. BILAT SWR IN PLACE. BED AT LOWEST LEVEL.
--- NOTE | 2019-09-28 00:40 | NUR ---
UPDATE: LEVOPHED TITRATED DOWN TO 3MCG/MIN, BP STABLE. PROPOFOL TUBING AND BOTTLE CHANGED. PT WAS GIVEN SKIN CARE SINCE, SHE IS WEEPING T/O.
[2019-09-28 04:17] LABS: BASOPHILS ABSOLUTE AUTO 0.03 K/mm3 (0.00-0.23); BASOPHILS PERCENT AUTO 0 % (0-2); EOSINOPHILS ABSOLUTE AUTO 0.22 K/mm3 (0.00-0.68); EOSINOPHILS PERCENT AUTO 1 % (0-6); Hematocrit 25.5 % (33.0-51.0); Hemoglobin 8.5 g/dL (11.5-16.0); IMMATURE GRAN ABSOLUTE AUTO 0.37 K/mm3 (0.00-0.10); IMMATURE GRAN PERCENT AUTO 2 % (0-1); LYMPHOCYTES ABSOLUTE AUTO 1.44 K/mm3 (0.84-5.20); LYMPHOCYTES PERCENT AUTO 9 % (21-46); MONOCYTES ABSOLUTE AUTO 0.52 K/mm3 (0.16-1.47); MONOCYTES PERCENT AUTO 3 % (4-13); Mean Corpuscular HGB 29.8 pg (26.0-34.0); Mean Corpuscular HGB Conc 33.3 g/dL (31.5-36.5); Mean Platelet Volume 11.1 fL (9.1-12.4); NEUTROPHILS ABSOLUTE AUTO 14.36 K/mm3 (1.96-9.15); NEUTROPHILS PERCENT AUTO 85 % (41-73); NRBC ABSOLUTE 0.34 K/mm3 (0.00-0.02); Platelet Count 116 K/mm3 (150-400); RDW Coefficient Variation 14.7 % (11.7-14.2); RDW Standard Deviation 47.3 fL (35.1-46.3); Red Blood Cell Count 2.85 M/mm3 (3.80-5.20); White Blood Cell Count 16.94 K/mm3 (4.00-11.30)
[2019-09-28 04:22] LABS: Mean Corpuscular Volume 90 fL (80-100)
[2019-09-28 04:35] LABS: Alanine Aminotransfer (ALT/SGP 23 U/L (12-78); Albumin, Blood 0.7 g/dL (3.4-5.0); Albumin/Globulin Ratio 0.2 (0.8-1.8); Alk Phos 239 U/L (50-136); Anion Gap 2 mmol/L (6-16); Aspartate Aminotrans (AST/SGOT 20 U/L (12-37); Bilirubin, Total 0.8 mg/dL (0.1-1.0); Blood Urea Nitrogen 10 mg/dL (8-24); Bun/Creatinine Ratio 28.8 (12.0-20.0); CO2, Blood 31 mmol/L (21-32); Calcium, Blood 6.8 mg/dL (8.5-10.1); Chloride, Blood 111 mmol/L (98-108); Creatinine, Blood 0.35 mg/dL (0.40-1.00); Glomerular Filtration Rate >60 (60-); Glucose, Blood 101 mg/dL (70-99); Magnesium, Blood 1.6 mg/dL (1.6-2.4); Phosphorus, Blood 2.7 mg/dL (2.5-4.9); Potassium, Blood 3.4 mmol/L (3.5-5.5); Sodium, Blood 144 mmol/L (136-145); Total Protein, Blood 3.7 g/dL (6.4-8.2)
--- NOTE | 2019-09-28 05:00 | NUR ---
SEDATION VACATION/WEANING TRIAL: PROPOFOL ON SB. PT IN SPONATEOUS MODE WITH PS 7, PEEP 5, FIO2 25% PT IS ALERT AND ABLE TO FOLLOW COMMANDS. PT IS COMMUNICATING WITH PEN AND PAPER. PT WRITES THAT SHE IS NOT SOB, AND IS BREATHING WITHOUT DIFFICULTY. PT WRITES THAT SHE WANTS THE BREATHING TUBE TAKEN OUT TODAY. PT PASSED WEAN TRAIL WITH NO ISSUES. PT IS ABLE TO MOVE ALL EXTREMITES. PT WAS UPDATE ON HER CONDITION. PT PLACED BACK ON 30MCG/KG/MIN OF PROPOFOL.
[2019-09-28 05:27] LABS: PCO2 Arterial 36.5 mmHg (35-45); PO2 Arterial 86.1 mmHg (80-100); pH Blood Arterial 7.52 (7.35-7.45)
--- NOTE | 2019-09-28 05:47 | NUR ---
SHIFT SUMMARY: PT CONTINUES TO BE SEDATED AND VENTED. NO CHANGES TO SEDATION PT HAS BEEN ON 30MCG/KG/MIN OF PROPOFOL AND IS ALERT, HOWEVER ABLE TO TOLERATE VENT. VENT SETTINGS REMAIN AT AC12/300/5/25% WITH SPO2 AT 98% PT HAD SCANT AMOUNT OF SPUTUM, WHITE AND THIN T/O SHIFT. VVS. LEVOPHED ON SB. ABDOMEN DRESSING INTACT, WILL BE CHANGED TODAY. ILEOSTOMY PRODUCING BROWN LIQUID STOOL. ACTIVE BOWEL TONES IN ALL QUADRANTS. NG TUBE, SCANT AMOUNT OF BILE NOTED. PT CONTINUES TO WEEP T/O. LINENS AND DRESSINGS CHANGED T/O SHIFT. 400ML OF URINE OUTPUT NOTED, ANTONIA AND CLOUDY, SEDIMENT NOTED. MEPILEX ON SACRUM CHANGED. WILL CONTINUE TO MONITOR PT UNTIL REPORT IS GIVEN TO ONCOMING SHIFT.
--- NOTE | 2019-09-28 08:15 | NUR ---
ASSESSMENT- PT AWAKE, ALERT, COOPERATIVE. ORALLY INTUBATED, TUBE SECURE, DENIES SOB. LUNGS COARSE, SUCTIONED SCANT SECRETIONS, GOOD COUGH. APICAL REGULAR, SR. SBP 90'S, RIGHT FEMORAL ARTERIAL LINE INTACT. RIGHT FEMORAL CENTRAL LINE INTACT. RIGHT CHEST MEDIPORT INTACT. CPN INFUSING AT 55 CC/HR, PROPOFOL AT 30 MCG/KG/MIN, NS TKO. ABDOMEN SOFT, TENDER. LARGE MIDLINE DRSG DI. RIGHT ILEOSTOMY STOMA PINK, SOFT WITH GREEN LIQUID WITH SMALL HARDENED STOOL. UO VIA HERNÁNDEZ. ANASARCA, WEEPING FROM SITES. AFEBRILE. BILATERAL WRIST RESTRAINTS-EXTUBATION RISK. ABLE TO ATTEMPT TO WRITE NOTES-DIFFICULT TO READ, EXPLAINED PLAN OF CARE. DENIES PAIN.
--- NOTE | 2019-09-28 10:34 | NUR ---
DR. SHARPE HERE-ASSESSED PT. PLANS FOR EXTUBATION TODAY, DC ARTERIAL LINE. PT TOLERATING CPAP 8/5 WITH TIDAL VOLUMES 300'S, DENIES SOB, RESPIRATIONS UNLABORED. RIGHT FEMORAL ARTERIAL LINE D/C, PRESSURE HELD UNTIL HEMOSTASIS OBTAINED, DRESSING REPLACED OVER RIGHT FEMORAL CENTRAL LINE. PT AWAKE, ALERT, COOPERATIVE. SOME ANXIETY, REASSURANCE GIVEN. EXTUBATED TO NASAL CANNULA WITHOUT PROBLEMS. NGT INTACT LEFT NARE WITH GREENISH DRAINAGE. SINUS TACH 100'S. RESTRAINTS REMOVED
--- NOTE | 2019-09-28 12:14 | NUR ---
DR. JACKSON HERE-UPDATED. NGT D/C. SINUS TACH. AWAKE, ALERT, SOME CONFUSION AND PARANOIA. REASSURANCE GIVEN. C/O NAUSEA-REQUESTING RX, GIVEN. REPOSITIONED. CONTINUE TO MONITOR
--- NOTE | 2019-09-28 14:15 | NUR ---
REPOSITIONED, CONFUSED REGARDING PLACE, SITUATION. CALLED PT'S SIGNIFICANT OTHER AND DAUGHTER CALLED-UPDATED AND BOTH TALKED WITH PT ON PHONE. PT HAS SOME PARANOIA BUT IMPROVES WITH REASSURANCE. DIURESING AFTER LASIX. SKIN EDEMATOUS, WEEPING BUT IMPROVED. NO SOB, RESPIRATIONS UNLABORED, POOR COUGH EFFORT, WILL NOT PARTICIPATE WITH DEEP BREATHING.
--- NOTE | 2019-09-28 17:40 | NUR ---
HYPOTENSIVE, UPDATE TO DR. SHARPE. LEVOPHED RESTARTED AT 2 MCG/MIN WITH IMPROVEMENT. ABLE TO ASSIST TO REPOSITION BUT WEAK. WILL NOT PARTICIPATE WITH C/DB EXERCISES. LINES INTACT. CONTINUE TO MONITOR. SINUS TACH
--- NOTE | 2019-09-28 20:56 | NUR ---
ASSUMED CARE OF PT, REPORT RCV'D FROM JAMAR Aranda RN. PT ALERT TO SELF, ABLE TO STATE SHE IS "AT [facility]", UNABLE TO RECALL MONTH, STATES YEAR "30". PT ASKS THIS NURSE IF SHE IS "PART OF DR. HICKMAN'S GAME". ASKED PT FOR CLARIFICATION AND PT BECAME ANGRY STATING THAT THIS IS "ALL JUST AN F*CKING GAME AND IT NEEDS TO BE OVER". REORIENTED PT AND UPDATED HER TO HER PROGRESS. ASKED PT IF SHE WAS IN PAIN, PT RESPONDED "YES, IM READY FOR EVERYTHING TO BE OVER". TREATED PT FOR PAIN PER EMAR. PT REFUSES TO ANSWER ANY ADDITIONAL QUESTIONS AND JUST CLOSES HER EYES. PT FOLLOWS DIRECTIONS AND ATTEMPTS TO ASSIST WITH REPOSITIONING BUT NEEDS CONTINUED DIRECTION. LUNG SOUNDS CLEAR/DIM T/O, SATS>90% ON RA. SIT WITH HR 113. ILEOSTOMY APPLIANCE C/D/I, SMALL AMOUNT OF BROWN STOOL IN OSTOMY BAG. TEMP HERNÁNDEZ PATENT AND DRAINING MODERATE AMOUNT OF CLEAR YELLOW URINE. MIDABDOMINAL DRESSING CHANGED THIS SHIFT, SMALL AMOUNT OF SS FLUID ON DRESSING. MEPILEX DRESSING TO COCCYX CHANGED THIS SHIFT, PRESSURE ULCER APPEARS UNCHANGED FROM ADMISSION. BILATERAL HEELS REDDENED, HEEL PROTECTORS PLACED FOR PROTECTION. RIGHT FEMORAL CENTRAL LINE PATENT, DRESSING CHANGED THIS SHIFT. SEE FULL SHIFT ASSESSMENT
--- NOTE | 2019-09-28 21:26 | NUR ---
PT EXTREMELY ANXIOUS, CRYING AND STATING THAT "DR. HICKMAN IS CONTROLLING MY MIND", PT REORIENTED. SPENT TIME AT BEDSIDE TALKING WITH PT REGARDING HER UNDERSTANDABLE ANXIETY AND FEELING OVERWHELMED. PT STATES SHE TAKES "SOMETHING" FOR ANXIETY BUT DOESN'T KNOW WHAT IT IS. CALL TO CHANTELLE JAQUEZ TO SEE IF PT COULD BE TREATED FOR ANXIETY. CHANTELLE JAQUEZ FEELS BENZODIAZIPINES ARE AN "INAPPROPRIATE TREATEMENT" AT THIS TIME.
[2019-09-29 04:09] LABS: BASOPHILS ABSOLUTE AUTO 0.03 K/mm3 (0.00-0.23); BASOPHILS PERCENT AUTO 0 % (0-2); EOSINOPHILS ABSOLUTE AUTO 0.01 K/mm3 (0.00-0.68); EOSINOPHILS PERCENT AUTO 0 % (0-6); Hematocrit 26.4 % (33.0-51.0); Hemoglobin 8.7 g/dL (11.5-16.0); IMMATURE GRAN ABSOLUTE AUTO 0.39 K/mm3 (0.00-0.10); IMMATURE GRAN PERCENT AUTO 3 % (0-1); LYMPHOCYTES ABSOLUTE AUTO 1.11 K/mm3 (0.84-5.20); LYMPHOCYTES PERCENT AUTO 8 % (21-46); MONOCYTES ABSOLUTE AUTO 0.65 K/mm3 (0.16-1.47); MONOCYTES PERCENT AUTO 4 % (4-13); Mean Corpuscular HGB 30.5 pg (26.0-34.0); Mean Platelet Volume 11.1 fL (9.1-12.4); NEUTROPHILS ABSOLUTE AUTO 12.56 K/mm3 (1.96-9.15); NEUTROPHILS PERCENT AUTO 85 % (41-73); NRBC ABSOLUTE 0.29 K/mm3 (0.00-0.02); Platelet Count 146 K/mm3 (150-400); RDW Coefficient Variation 15.2 % (11.7-14.2); RDW Standard Deviation 50.6 fL (35.1-46.3); Red Blood Cell Count 2.85 M/mm3 (3.80-5.20); White Blood Cell Count 14.75 K/mm3 (4.00-11.30)
[2019-09-29 04:22] LABS: Mean Corpuscular Volume 93 fL (80-100)
[2019-09-29 04:23] LABS: Anion Gap 3 mmol/L (6-16); Blood Urea Nitrogen 12 mg/dL (8-24); Bun/Creatinine Ratio 29.6 (12.0-20.0); CO2, Blood 29 mmol/L (21-32); Calcium, Blood 7.2 mg/dL (8.5-10.1); Chloride, Blood 113 mmol/L (98-108); Creatinine, Blood 0.41 mg/dL (0.40-1.00); Glomerular Filtration Rate >60 (60-); Glucose, Blood 84 mg/dL (70-99); Magnesium, Blood 1.7 mg/dL (1.6-2.4); Potassium, Blood 3.7 mmol/L (3.5-5.5); Sodium, Blood 145 mmol/L (136-145)
--- NOTE | 2019-09-29 05:26 | NUR ---
SHIFT SUMMARY PT REMAINS CONFUSED AND PARANOID CONTINUALLY ASKING ABOUT "DR. HICKMAN'S GAME". PT WAS UNABLE TO SLEEP T/O SHIFT AND LAID IN BED STARING AT THE CEILING WITH HER RIGHT THUMB IN THE AIR AT ALL TIMES. WHEN ASKED WHY SHE HAD HER THUMB UP PT REPLIES "THUMB UP FOR Q-Bot". NO PHYSICAL INDICATORS THAT PT WAS IN PAIN BUT WHEN ASKED PT FLATLY RESPONDS "SEVERE", WHEN ASKED PAIN LEVEL 1-10 PT RESPONDS WITH " 8 OR WHATEVER IT TAKES TO MAKE IT END". LEVOPHED PLACED ON STANDBY AT 2300, MAP REMAINS GREATER THAN 65. 1100 ML URINARY OUTPUT. APPROXIMATELY 50 ML WATERY STOOL FROM ILEOSTOMY.
--- NOTE | 2019-09-29 07:47 | NUR ---
ASSUMED CARE REPORT RECEIVED FROM AR ROCHA. PT RESTING IN BED STARING OUT THE WINDOW. NOT TALKING UNLESS SPOKEN TOO AND ANSWERS WITH VERY FEW WORDS. ASKED PT IF I CAN GET HER ANYTHING AND SHE ASKS FOR A PAIN PILL TO END THIS ALL. ASKED PT TO RATE PAIN AND SHE JUST STARED. OFFERED PT WATER AND SHE TOOK A FEW SIPS. APPEARS TO DRINK SAFELY WITHOUT SIGNS OF ASPIRATION. WHEN PT IS ASKED WHERE SHE IS SHE STATES SHE IS IN THE HOSPITAL, BUT THEN MAKES COMMENTS ABOUT IT BEING BECAUSE OF DR. HICKMAN'S EVIL PLAN. WON'T GIVE A CITY. ASKED HER NAME AND SHE FIRST STATED THIS RN'S NAME, BUT AFTER BEING TOLD THAT IT WAS THE NURSE'S NAME SHE CORRECTLY STATED HER NAME. ASKED PT IF SHE KNEW WHAT MONTH IT WAS AND SHE JUST STARED BLANKLY SHE DID WITH ALL FURTHER QUESTIONS. PT IS BEING COOPERATIVE, BUT VERY WITHDRAWN AND FLAT AFFECT. CONTINUING TO MONITOR.
--- NOTE | 2019-09-29 11:52 | NUR ---
REASSESSMENT PT CONTINUES TO BE ALERT, BUT CATATONIC LIKE. WHEN THIS RN IS IN THE ROOM SHE JUST STARES AT MY ID BADGE AND STATES MY NAME AND "RN" PERIODICALLY AND REPEATEDLY. WHEN ASKED QUESTIONS SHE STARES BACK WITHOUT ANSWERING. SHE EATS AND DRINKS SOME WHEN OFFERED AND WITH ASSISTANCE AND ISN'T FOLLOWING DIRECTIONS TO HELP WITH TURNS. LUNGS REMAIN CL, RA. ST IN THE 110S, BP STABLE. BOWEL TONES PRESENT. SM AMT OF LIQUID STOOL AND GAS EMPTIED FROM OSTOMY. EXTREMITIES REMAIN EDEMATOUS, ELEVATED ON PILLOWS. GAUZE PLACED AROUND FEMORAL ACCESS SITES TO HELP ABSORB THE SEROUS FLUID THAT IS DRAINING FROM THOSE SITES. SPOKE WITH PT'S JEFFREY AND SO AND PROVIDED UPDATES. DR. CARVAJAL AND DELL CAME BY ON ROUNDS AND GAVE OK FOR PT TO BE PCU STATUS.
--- NOTE | 2019-09-29 16:31 | NUR ---
SHIFT SUMMARY; PT HAS REMAINED ALERT, BUT WITHDRAWN AND FLAT THROUGHOUT THE SHIFT. THIS AFTERNOON SHE RANDOMLY STATED SHE WAS AT [facility], BUT WOULDN'T SAY ANYTHING ELSE. THEN DURING HER BATH SHE JUST SAID "APOSTROPHE," BUT WOULDN'T SAY ANYTHING ELSE OR EXPLAIN WHAT THAT MEANT. LUNGS REMAIN CL, RA, ST IN THE 110S, SBP 90-LOW 100S. PT REMAINS VERY EDEMATOUS. IN GROIN FOLDS WHERE SHE HAS HAD PUNCTURES SHE HAS OPEN SORES THAT ARE WEEPING, ESPECIALLY ON THE R SIDE. CENTRAL LINE DRESSING CHANGED BECAUSE OF LG AMT OF SEROUS FLUID UNDER THE DRESSING AND LEAKING OUT. OSTOMY CHANGED BECAUSE OF LEAKING AND DRESSING OVER ABD CHANGED WELL. PT HAS JUST STARED AT THIS RN WHEN ASKED IF SHE IS IN PAIN. SHE DOES NOT GRIMACE OR GUARD WHEN TURNING HER. SPOKE WITH PT'S JEFFREY AGAIN AND TRANSFERRED THE PHONE TO THE ROOM FOR PT TO BE ABLE TO HEAR HER VOICE. PT PICKED UP THE PHONE, TURNED IT ON AND HELD IT TO HER EAR APPROPRIATELY ON HER OWN WHEN IT RANG, BUT DID NOT TALK BACK TO HER DAUGHTER.
--- NOTE | 2019-09-29 21:59 | NUR ---
ASSUMED CARE OF PT, REPORT RCV'D FROM CHERIE Wilkinson RN. PT TURNS HEAD TO VERBAL STIMULATION AND MAKES EYE CONTACT BUT IS FAILING TO NOT VERBALLY RESPOND TO QUESTIONS AT THIS TIME. VERY FLAT AFFECT. PT SITTING UP IN BED WITH HANDS FOLDED OVER HER ABDOMEN. PT DOES NOT APPEAR TO BE IN PAIN/DISCOMFORT AND IS NOT ANSWERING PAIN RELATED QUESTIONS. PT FOLLOWS COMMANDS SLOWLY WITH REPOSITIONING. RIGHT FEMORAL CENTRAL LINE C/D/I, RIGHT UPPER MEDIPORT DRESSING C/D/I, MIDLINE DRESSING C/D/I. MEPILEX REMAINS ON COCCYX, C/D/I, HEEL PROTECTORS IN PLACE. TEMP HERNÁNDEZ PATENT DRAINING CLEAR YELLOW URINE. ILEOSTOMY APPLIANCE CHANGED DURING DAYSHIFT, REMAINS IN PLACE, WATERY BROWN OUTPUT. SEE FULL SHIFT ASSESSMENT
[2019-09-30 04:23] LABS: BASOPHILS ABSOLUTE AUTO 0.02 K/mm3 (0.00-0.23); BASOPHILS PERCENT AUTO 0 % (0-2); EOSINOPHILS PERCENT AUTO 0 % (0-6); Hematocrit 26.6 % (33.0-51.0); Hemoglobin 8.7 g/dL (11.5-16.0); IMMATURE GRAN ABSOLUTE AUTO 0.43 K/mm3 (0.00-0.10); IMMATURE GRAN PERCENT AUTO 3 % (0-1); LYMPHOCYTES ABSOLUTE AUTO 1.08 K/mm3 (0.84-5.20); LYMPHOCYTES PERCENT AUTO 8 % (21-46); MONOCYTES ABSOLUTE AUTO 0.86 K/mm3 (0.16-1.47); MONOCYTES PERCENT AUTO 7 % (4-13); Mean Corpuscular HGB 30.4 pg (26.0-34.0); Mean Corpuscular HGB Conc 32.7 g/dL (31.5-36.5); Mean Corpuscular Volume 93 fL (80-100); Mean Platelet Volume 11.3 fL (9.1-12.4); NEUTROPHILS ABSOLUTE AUTO 10.92 K/mm3 (1.96-9.15); NEUTROPHILS PERCENT AUTO 82 % (41-73); NRBC ABSOLUTE 0.23 K/mm3 (0.00-0.02); NRBC Auto 1.7 /100 WBC (0.0-0.2); Platelet Count 165 K/mm3 (150-400); RDW Coefficient Variation 15.3 % (11.7-14.2); RDW Standard Deviation 49.9 fL (35.1-46.3); Red Blood Cell Count 2.86 M/mm3 (3.80-5.20); White Blood Cell Count 13.31 K/mm3 (4.00-11.30)
[2019-09-30 04:43] LABS: Alanine Aminotransfer (ALT/SGP 27 U/L (12-78); Albumin, Blood 0.9 g/dL (3.4-5.0); Albumin/Globulin Ratio 0.2 (0.8-1.8); Alk Phos 389 U/L (50-136); Anion Gap 3 mmol/L (6-16); Aspartate Aminotrans (AST/SGOT 22 U/L (12-37); Bilirubin, Total 0.7 mg/dL (0.1-1.0); Blood Urea Nitrogen 14 mg/dL (8-24); Bun/Creatinine Ratio 33.5 (12.0-20.0); CO2, Blood 29 mmol/L (21-32); Calcium, Blood 7.5 mg/dL (8.5-10.1); Chloride, Blood 114 mmol/L (98-108); Creatinine, Blood 0.42 mg/dL (0.40-1.00); Globulin, Blood 3.9 g/dL (2.2-4.0); Glomerular Filtration Rate >60 (60-); Glucose, Blood 110 mg/dL (70-99); Potassium, Blood 3.5 mmol/L (3.5-5.5); Sodium, Blood 146 mmol/L (136-145); Total Protein, Blood 4.8 g/dL (6.4-8.2)
--- NOTE | 2019-09-30 05:50 | NUR ---
SHIFT SUMMARY PT ALERT TO SOUNDS, FOLLOWS DIRECTIONS. MAKES BUT FAILS TO MAINTAIN EYE CONTACTS. WAS NONVERBAL AND DID NOT ANSWER QUESTIONS UNTIL 0400 REPOSITIONING. PT BEGAN ASKING THIS NURSE FOR HER "MASK", PT INSISTING THAT NURSE SAID SHE WOULD MAKE HER A "DOG MASK", PT THEN BEGAN TALKING NONSENSICALLY ABOUT "BEING A GREEN PARTY" AND NOT LIKING CATS. PT DID NOT ANSWER DIRECT QUESTIONS REGARDING PAIN BUT WAS ABLE TO STATE SHE WAS "IN THE HOSPITAL". PT PULLED ALL OF HER HEART MONITOR LEADS OFF, WHILE REPLACING THEM PT AGAIN BEGAN AGGRESSIVELY ASKING FOR HER "MASK" ASKING WHAT FORM OF PAYMENT SHE SHOULD MAKE. PT REORIENTED WITHOUT SUCCESS, REORIENTATION SEEMED TO FURTHER AGITATE PT. 250 ML WATERY BROWN STOOL FROM ILEOSTOMY. 900 ML URINARY OUTPUT FROM HERNÁNDEZ. PT REMAINS SIT. ALL OTHER VSS. WILL REPORT TO DAYSMDFT NURSE.
--- NOTE | 2019-09-30 13:27 | NUR ---
REASSESSMENT: PT'S MENTATION IS MUCH IMPROVED FROM YESTERDAY. PT HAS BEEN CONVERSING WITH STAFF AND ANSWERING QUESTIONS. PT STILL HAS MOMENTS OF CONFUSION THINKING HER BROTHER IS AROUND OR THAT SHE IS AT HER HOUSE. SHE TALKS A LOT ABOUT STUFF HAPPENING YESTERDAY, BUT ACTUALLY DIDN'T. LOTS OF REORIENTATION AND EXPLANATION OF PAST WEEKS EVENTS PROVIDED AND PT APPEARS TO SLOWLY BE RETAINING IT. SHE IS ORIENTED TO PERSON, PLACE AND DATE. SHE HAD SOME VISUAL HALLUCINATIONS SEEING A CLOWN IN THE CORNER OF THE ROOM. SHE REMAINS VERY EDEMATOUS. SURGICAL SITE DRESSING WAS FPC SATURATED AND OOZING DOWN HER SIZE AND ON TO THE CHUCKS THIS MORNING. DRESSING CHANGED. LEGS STILL VERY SWOLLEN. DR. CARVAJAL GAVE ORDER FOR ADDITONAL 20MG OF LASIX THIS MORNING, GIVEN. PT'S URINE HAS SOME MUCOUS IN IT AND LEAKING FROM AROUND THE CATHETER. CATH CARE DONE WITH BED BATH. PT IS HELPING WITH TURNS AND GOT UP TO THE CHAIR WITH MODERATE ASSISTANCE. SHE STATES SHE IS HAVING A LOT OF GAS, BUT NOT MUCH HAS BEEN EMPTIED OUT FROM OSTOMY. UPDATE PROVIDED TO PT'S ZARINA HERRERA, AND ZARINA AND PT'S JEFFREY WERE ABLE TO TALK WITH PT ON THE PHONE THIS MORNING.
--- NOTE | 2019-09-30 16:58 | NUR ---
SHIFT SUMMARY: PT'S MENTATION IMPROVED TO DAY, BUT WAS STILL BETTER AT SOME TIMES THAN OTHERS. SHE IS ALSO STILL HALLUCINATING SEE "A WEIRDO" OUTSIDE HER WINDOW WHEN THERE WAS NOBODY THERE. THE DRESSING ON HER ABDOMEN HAS DRAINAGE ON IT, BUT IS STILL INTACT. OSTOMY WITH LESS LIQUID OUTPUT THAN YESTERDAY. LUNGS CL, VERY DIM IN THE BASES. ST, BP STABLE. PT GOT UP TO THE CHAIR AND THEN WAS ASKING TO WALK AROUND, BUT REFUSED TO DO MORE THAN STAND BRIEFLY WHEN PHYSICAL THERAPY WENT IN. UPDATES GIVEN TO PT'S SO AND JEFFREY. CONTINUING TO MONITOR.
--- NOTE | 2019-09-30 21:07 | NUR ---
PATIENT SITTING UP IN CHAIR WITH NO COMPLAINTS, A&O X3 BUT FORGETFUL AT TIMES. PATIENT VERBALIZED THAT SHE WAS SEEING A MAN OUTSIDE WITH A GUN, I DID NOT SEE ANYONE. PATIENT REASSURED SHE IS SAFE HERE. VERBALIZED THAT SHE WANTED TO STAY SITTING UP AT THIS TIME. GENERALIZED EDEMA CONTINUES, ABLE TO USE CELL PHONE AND WORK BOOKS THAT FAMILY SENT IN WITHOUT DIFFICULTY. ILEOSTOMY INTACT TO RIGHT UPPER ABD. DRESSING TO MID ABD CD&I.
[2019-10-01 05:08] LABS: BASOPHILS ABSOLUTE AUTO 0.03 K/mm3 (0.00-0.23); BASOPHILS PERCENT AUTO 0 % (0-2); EOSINOPHILS ABSOLUTE AUTO 0.03 K/mm3 (0.00-0.68); EOSINOPHILS PERCENT AUTO 0 % (0-6); Hematocrit 25.7 % (33.0-51.0); Hemoglobin 8.3 g/dL (11.5-16.0); IMMATURE GRAN ABSOLUTE AUTO 0.49 K/mm3 (0.00-0.10); IMMATURE GRAN PERCENT AUTO 4 % (0-1); LYMPHOCYTES ABSOLUTE AUTO 1.12 K/mm3 (0.84-5.20); LYMPHOCYTES PERCENT AUTO 10 % (21-46); MONOCYTES ABSOLUTE AUTO 0.91 K/mm3 (0.16-1.47); MONOCYTES PERCENT AUTO 8 % (4-13); Mean Corpuscular HGB 30.3 pg (26.0-34.0); Mean Corpuscular HGB Conc 32.3 g/dL (31.5-36.5); Mean Corpuscular Volume 94 fL (80-100); Mean Platelet Volume 11.2 fL (9.1-12.4); NEUTROPHILS ABSOLUTE AUTO 8.82 K/mm3 (1.96-9.15); NEUTROPHILS PERCENT AUTO 77 % (41-73); NRBC ABSOLUTE 0.26 K/mm3 (0.00-0.02); NRBC Auto 2.3 /100 WBC (0.0-0.2); Platelet Count 209 K/mm3 (150-400); RDW Coefficient Variation 16.9 % (11.7-14.2); RDW Standard Deviation 50.4 fL (35.1-46.3); Red Blood Cell Count 2.74 M/mm3 (3.80-5.20)
[2019-10-01 05:26] LABS: Alanine Aminotransfer (ALT/SGP 28 U/L (12-78); Albumin, Blood 0.8 g/dL (3.4-5.0); Albumin/Globulin Ratio 0.2 (0.8-1.8); Alk Phos 306 U/L (50-136); Anion Gap 3 mmol/L (6-16); Aspartate Aminotrans (AST/SGOT 19 U/L (12-37); Bilirubin, Total 0.6 mg/dL (0.1-1.0); Blood Urea Nitrogen 13 mg/dL (8-24); CO2, Blood 29 mmol/L (21-32); Calcium, Blood 7.3 mg/dL (8.5-10.1); Chloride, Blood 114 mmol/L (98-108); Creatinine, Blood 0.43 mg/dL (0.40-1.00); Globulin, Blood 3.9 g/dL (2.2-4.0); Glomerular Filtration Rate >60 (60-); Glucose, Blood 112 mg/dL (70-99); Potassium, Blood 3.3 mmol/L (3.5-5.5); Sodium, Blood 146 mmol/L (136-145); Total Protein, Blood 4.7 g/dL (6.4-8.2)
--- NOTE | 2019-10-01 07:22 | NUR ---
ASSUMED CARE REPORT FROM EDER Hurt RN. PATIENT SLEEPING. PCU STATUS.
--- NOTE | 2019-10-01 07:32 | NUR ---
SUMMARY PATIENT RESTING QUIETLY IN BED, ABLE TO SLEEP FOR APROX 4 HRS DURING THE NIGHT. ILEOSTOMY DRAINING LIQUID BROWN STOOL, PATIENT CONTINUES TO PASS MUCUS RECTALLY OCCASIONALLY. PATIENT ABLE TO ASSIST WITH REPOSITIONING IN BED. GENERALIZED EDEMA CONTINUES, APPEARS TO HAVE LESS WEEPING FROM SWELLING. CONFUSION CONTINUES REORIENTATION EASILY.
--- NOTE | 2019-10-01 08:44 | NUR ---
MD VISIT DR. CARVAJAL IN. PATIENT A&O. PSYCH CONSULT CANCELED. STATUS CHANGE TO SURGICAL WITH TELE. TPN INFUSING CENTRAL LINE RIJ. PITTING EDEMA T/O
--- NOTE | 2019-10-01 09:29 | NUR ---
OCCUPATIONAL THERAPIST IN. ASSISTED TO CHAIR W 2 PERSON AND WALKER. 350 CC CLEAR BROWN EMPTIED FROM OSTOMY BAG. FENTANYL 25 MCG IV GIVEN FOR 5/10 PAIN AFTER MOVEMENT.
--- NOTE | 2019-10-01 15:22 | NUR ---
PATIENT OOB TO CHAIR WITH OCCUPATIONAL THERAPY. BACK TO BED WHEN C/O BOTTOM HURTING. ABDOMINAL DRESSING CHANGED WAS SATURATED WITH WITH SEROUS FLUID. WEEPING FROM ALL INCISIONS D/T EDEMA. LASIX DOSE WAS INCREASED BY DR. CARVAJAL. BLE CONTINUE 3+ EDEMA. PATIENT REFUSED TO WORK WITH PHYSICAL THERAPY SHE HAD ALREADY GOTTEN OOB WITH OT. REFUSED LAST TURN. A ROOM IS AVAILABLE ON SURGICAL FLOOR AND SHE WILL BE TRANSFERRED AFTER REPORT GIVEN
--- NOTE | 2019-10-01 16:02 | NUR ---
MD VISIT DR. JACKSON IN. WILL ADVANCE DIET
--- NOTE | 2019-10-01 16:14 | NUR ---
REPORT GIVEN TO SN. KRISTINA WILL MOVE PATIENT TO ROOM 232.
[2019-10-02 05:53] LABS: BASOPHILS ABSOLUTE AUTO 0.02 K/mm3 (0.00-0.23); BASOPHILS PERCENT AUTO 0 % (0-2); EOSINOPHILS ABSOLUTE AUTO 0.05 K/mm3 (0.00-0.68); EOSINOPHILS PERCENT AUTO 0 % (0-6); Hematocrit 26.5 % (33.0-51.0); Hemoglobin 8.5 g/dL (11.5-16.0); IMMATURE GRAN ABSOLUTE AUTO 0.43 K/mm3 (0.00-0.10); IMMATURE GRAN PERCENT AUTO 4 % (0-1); LYMPHOCYTES ABSOLUTE AUTO 1.46 K/mm3 (0.84-5.20); LYMPHOCYTES PERCENT AUTO 13 % (21-46); MONOCYTES ABSOLUTE AUTO 1.14 K/mm3 (0.16-1.47); MONOCYTES PERCENT AUTO 10 % (4-13); Mean Corpuscular HGB 30.4 pg (26.0-34.0); Mean Corpuscular HGB Conc 32.1 g/dL (31.5-36.5); Mean Corpuscular Volume 95 fL (80-100); Mean Platelet Volume 10.6 fL (9.1-12.4); NEUTROPHILS ABSOLUTE AUTO 8.39 K/mm3 (1.96-9.15); NEUTROPHILS PERCENT AUTO 73 % (41-73); NRBC ABSOLUTE 0.31 K/mm3 (0.00-0.02); NRBC Auto 2.7 /100 WBC (0.0-0.2); Platelet Count 278 K/mm3 (150-400); RDW Coefficient Variation 17.7 % (11.7-14.2); RDW Standard Deviation 50.3 fL (35.1-46.3); White Blood Cell Count 11.49 K/mm3 (4.00-11.30)
[2019-10-02 06:15] LABS: Alanine Aminotransfer (ALT/SGP 27 U/L (12-78); Albumin, Blood 0.9 g/dL (3.4-5.0); Albumin/Globulin Ratio 0.2 (0.8-1.8); Alk Phos 255 U/L (50-136); Anion Gap 3 mmol/L (6-16); Aspartate Aminotrans (AST/SGOT 19 U/L (12-37); Bilirubin, Total 0.8 mg/dL (0.1-1.0); Blood Urea Nitrogen 14 mg/dL (8-24); Bun/Creatinine Ratio 36.6 (12.0-20.0); CO2, Blood 28 mmol/L (21-32); Calcium, Blood 7.3 mg/dL (8.5-10.1); Chloride, Blood 114 mmol/L (98-108); Creatinine, Blood 0.38 mg/dL (0.40-1.00); Globulin, Blood 4.1 g/dL (2.2-4.0); Glomerular Filtration Rate >60 (60-); Glucose, Blood 119 mg/dL (70-99); Phosphorus, Blood 2.5 mg/dL (2.5-4.9); Potassium, Blood 3.2 mmol/L (3.5-5.5); Sodium, Blood 145 mmol/L (136-145)
--- NOTE | 2019-10-02 06:31 | NUR ---
SHIFT SUMMARY HAS RESTED WELL SINCE START OF SHIFT. AAO X3. NAIK, FOLLOWS ALL COMMANDS. DENIES PAIN OR DISCOMFORT AT THIS TIME. REPOSITIONS SELF FOR COMFORT. DENIES FURTHER NEEDS OR WANTS AT THIS TIME. SAFETY MEASURES IN PLACE. WILL CONTINUE TO MONITOR AND GIVE HAND OFF TO ONCOMING SHIFT USING SBAR DURING BEDSIDE REPORT.
--- NOTE | 2019-10-02 18:42 | NUR ---
WOUND CARE/ OSTOMY CARE APPLIANCE REMOVED. OSTOMY CLEANED. STOMA WNL. MIDLINE INCISION REDDENED ALONG STAPLE LINE AND OZZING MODERATE AMOUNT SEROSANGUINOUS FLUID. MEDIPORE APPLIED. WOUND TO LEFT INGUINAL AREA CLEANED AND DRESSING REPLACED. 2 SMALL 1CM IN DIAMETER SPOTS AND SMAL LINE. PT STATES "DONALD" SPOUSE CARES FOR THEM WELL SACRAL WOUND. PRESSURE ULCER CLEANSED AND MEPILEX APPLIED. STAGE 3 DIME SIZE ULCERS ON SACRUM.
--- NOTE | 2019-10-02 18:48 | NUR ---
SHIFT SUMMARY PT HAS REPORTED MINIMAL AMOUNT OF PAIN AND THAT THE PAIN IS DUE TO GAS. PT WAS FLAT AFFECT IN THE BEGINING OF SHIFT BUT OPENED UP NEAR THE END. WOUND CARE WAS DONE. OSTOMY CARE WAS DONE. PT'S SPOUSE BROUGHT HOME OSTOMY SUPPLIES. PT CONTENT IN ROOM FOR TIME. PT IS UNMOTIVATED TO GET OUT OF BED.
--- NOTE | 2019-10-03 04:26 | NUR ---
SHIFT SUMMARY HAS RESTED WELL THIS SHIFT. AAO X3. NAIK, FOLLOWS ALL COMMANDS. 600ML LIQUID GREEN OUTPUT NOTED FROM OSTOMY. DRESSING CHANGE COMPLETED TO MIDLINE INCISION. GOWN AND LINEN CHANGE COMPLETED. DENIES PAIN OR DISCOMFORT AT THIS TIME. REPOSITIONS SELF FOR COMFORT. DENIES FURTHER NEEDS OR WANTS AT THIS TIME. SAFETY MEASURES IN PLACE. WILL CONTINUE TO MONITOR AND GIVE HAND OFF TO ONCOMING SHIFT USING SBAR DURING BEDSIDE REPORT.
--- NOTE | 2019-10-03 08:15 | NUR ---
PT AWAKE LAYING IN BED STATED MIN PAIN 3/10 ABD CRAMPING INT STATED NO APPEATITE EITHER REQ NO TRAY STATED SHE DOES NOT LIKE OUR FOOD
--- NOTE | 2019-10-03 08:40 | NUR ---
DR JACKSON BY TO SEE PT
--- NOTE | 2019-10-03 08:55 | NUR ---
PT REQ PO TYLENOL INSTEAD OF NARCOTIC FOR THE PAIN SCHED MEDS ALSO GIVEN
--- NOTE | 2019-10-03 17:37 | NUR ---
dr roland by to see pt talked with her re pt edema pt also reported earlier that it makes her feel weak pt oob in chair at this time with encouragment
--- NOTE | 2019-10-03 18:20 | NUR ---
pt had some harvey delivered still asleep placed in her room
[2019-10-04 04:54] LABS: Hematocrit 29.8 % (33.0-51.0); Hemoglobin 9.1 g/dL (11.5-16.0); Mean Corpuscular HGB 30.4 pg (26.0-34.0); Mean Corpuscular HGB Conc 30.5 g/dL (31.5-36.5); Mean Corpuscular Volume 100 fL (80-100); Mean Platelet Volume 10.4 fL (9.1-12.4); NRBC ABSOLUTE 0.15 K/mm3 (0.00-0.02); NRBC Auto 0.9 /100 WBC (0.0-0.2); Platelet Count 426 K/mm3 (150-400); RDW Coefficient Variation 19.1 % (11.7-14.2); RDW Standard Deviation 55.2 fL (35.1-46.3); Red Blood Cell Count 2.99 M/mm3 (3.80-5.20); White Blood Cell Count 16.65 K/mm3 (4.00-11.30)
[2019-10-04 05:14] LABS: Anion Gap 5 mmol/L (6-16); Blood Urea Nitrogen 13 mg/dL (8-24); Bun/Creatinine Ratio 36.8 (12.0-20.0); CO2, Blood 24 mmol/L (21-32); Calcium, Blood 7.7 mg/dL (8.5-10.1); Chloride, Blood 113 mmol/L (98-108); Creatinine, Blood 0.35 mg/dL (0.40-1.00); Glomerular Filtration Rate >60 (60-); Glucose, Blood 120 mg/dL (70-99); Phosphorus, Blood 2.9 mg/dL (2.5-4.9); Sodium, Blood 142 mmol/L (136-145)
--- NOTE | 2019-10-04 08:03 | NUR ---
SHIFT SUMMARY: RAHEEM IS A&OX4. TPN INFUSING TO MEDIPORT. LOW GRADE FEVER EARLY IN THE SHIFT WHICH RESOLVED SPONTANEOUSLY. ABD TO MIDLINE INCISION WITH DERIK. BILATERAL FEMORAL SITES WITH MEPILEX. ILEOSTOMY PUTTING OUT FLATUS AND LIQUID STOOL. PT REPORTS BEING UNWILLING TO EAT THE HOSPITAL FOOD. 2 PERSON TRANSFER D/T WEAKNESS. HERNÁNDEZ PATENT. SHE IS ABLE TO MAKE HER NEEDS KNOWN. WILL REPORT TO DAY SHIFT RN.
--- NOTE | 2019-10-04 19:54 | NUR ---
SHIFT SUMMARY PT A&OX4, VSS, DERIK REMOVED TODAY AND STERI STRIPS PLACED, MEDIPORE TO COVER, NEW OSTOMY APPLIANCE PLACED TODAY, SHOWERED. MOI PO, LOW PO INTAKE. PAIN MANAGED WITH 12.5 FENT. AMBULATES 1 PP MOD ASSIST. REPORT GIVEN TO LEX JOYNER.
--- NOTE | 2019-10-04 23:23 | NUR ---
DRESSING TO MIDLINE CHANGED D/T SATURATION. STERI-STRIPS REINFORCED. APPLIANCE TO OSTOMY WELL SEALED.
[2019-10-05 04:44] LABS: Triglycerides 150 mg/dL (30-160)
--- NOTE | 2019-10-05 04:51 | NUR ---
SHIFT SUMMARY: RAHEEM IS A&OX4. SHE CONTINUES TO TAKE PO FLUIDS, BUT HAS A POOR APPETITE. HERNÁNDEZ DRAINING ANTONIA URINE WITH SEDIMENT. MEPILEX TO COCCYX CHANGED THIS SHIFT, PRESSURE SORES APPEAR SMALLER THAN PICTURED ON ADMISSION. TPN INFUSING THROUGH MEDIPORT. 2 PERSON TRANSFER TO CHAIR. SHE IS WEAK. OSTOMY PUTTING OUT LIQUID, BROWN STOOL AND FLATUS. DRESSING CHANGED TO MIDLINE INCISION AND STERI STRIPS REINFORCED. SHE IS ABLE TO MAKE HER NEEDS KNOWN. SHE IS LYING IN BED WITH HER CALL LIGHT IN REACH. LOW GRADE FEVER, RAHEEM STATES SHE DOES NOT FEEL FEBRILE. VSS, NO ACUTE EVENTS THIS SHIFT. WILL REPORT TO DAY SHIFT RN.
--- NOTE | 2019-10-05 08:10 | NUR ---
PT EDEMA IS DECREASED TO BILAT LEG STILL TO UPPER ARMS PT REPORTS PAIN 7/10 ABD PT HAS LOT OF GAS IN OSTOMY SMALL AMT STOOL LIQUID PT DRESSING MOD SAT WILL CHANGE AFTER SEEN BY DR JACKSON
[2019-10-05 09:27] LABS: BASOPHILS ABSOLUTE AUTO 0.04 K/mm3 (0.00-0.23); BASOPHILS PERCENT AUTO 0 % (0-2); EOSINOPHILS ABSOLUTE AUTO 0.01 K/mm3 (0.00-0.68); EOSINOPHILS PERCENT AUTO 0 % (0-6); Hematocrit 28.7 % (33.0-51.0); IMMATURE GRAN ABSOLUTE AUTO 0.11 K/mm3 (0.00-0.10); IMMATURE GRAN PERCENT AUTO 1 % (0-1); LYMPHOCYTES ABSOLUTE AUTO 1.03 K/mm3 (0.84-5.20); LYMPHOCYTES PERCENT AUTO 6 % (21-46); MONOCYTES ABSOLUTE AUTO 0.89 K/mm3 (0.16-1.47); MONOCYTES PERCENT AUTO 6 % (4-13); Mean Corpuscular HGB 30.9 pg (26.0-34.0); Mean Corpuscular HGB Conc 31.4 g/dL (31.5-36.5); Mean Corpuscular Volume 99 fL (80-100); Mean Platelet Volume 10.2 fL (9.1-12.4); NEUTROPHILS ABSOLUTE AUTO 14.08 K/mm3 (1.96-9.15); NEUTROPHILS PERCENT AUTO 87 % (41-73); NRBC ABSOLUTE 0.04 K/mm3 (0.00-0.02); NRBC Auto 0.2 /100 WBC (0.0-0.2); Platelet Count 467 K/mm3 (150-400); RDW Coefficient Variation 18.6 % (11.7-14.2); Red Blood Cell Count 2.91 M/mm3 (3.80-5.20); White Blood Cell Count 16.16 K/mm3 (4.00-11.30)
[2019-10-05 09:49] LABS: Alanine Aminotransfer (ALT/SGP 65 U/L (12-78); Albumin/Globulin Ratio 0.2 (0.8-1.8); Alk Phos 416 U/L (50-136); Anion Gap 4 mmol/L (6-16); Aspartate Aminotrans (AST/SGOT 69 U/L (12-37); Bilirubin, Direct 0.5 mg/dL (0.0-0.3); Bilirubin, Indirect 0.3 mg/dL (0.1-0.7); Bilirubin, Total 0.8 mg/dL (0.1-1.0); Blood Urea Nitrogen 11 mg/dL (8-24); Bun/Creatinine Ratio 31.2 (12.0-20.0); CO2, Blood 25 mmol/L (21-32); Calcium, Blood 7.2 mg/dL (8.5-10.1); Chloride, Blood 111 mmol/L (98-108); Creatinine, Blood 0.35 mg/dL (0.40-1.00); Globulin, Blood 4.8 g/dL (2.2-4.0); Glomerular Filtration Rate >60 (60-); Glucose, Blood 120 mg/dL (70-99); Phosphorus, Blood 2.8 mg/dL (2.5-4.9); Sodium, Blood 140 mmol/L (136-145); Total Protein, Blood 5.8 g/dL (6.4-8.2)
--- NOTE | 2019-10-05 13:00 | NUR ---
pt had food from home placed in fridge
--- NOTE | 2019-10-05 15:26 | NUR ---
zofran 4mg and fent 25mcg ivp given per pt req
--- NOTE | 2019-10-05 15:41 | NUR ---
dr williamson by to see pt wound vac placed pt painful 25mcg fent given along with 4mg zofran
--- NOTE | 2019-10-05 17:41 | NUR ---
DR PENA BY TO SEE PT D/C'D THE LASIX WANTS PT TO ENCOURAGE ORAL INTAKE AND WILL START A WOUND HEALING BANNITROL
--- NOTE | 2019-10-06 04:45 | NUR ---
SHIFT SUMMARY: PT A&O X4. PAIN BEING MANAGED WITH 25MCG OF FENTANYL PER EMAR. SMALL AMOUNT OF SEROSANGUINOUS DRG LEAKING AROUND WOUND VAC THIS MORNING. DRESSING CHNAGED WELL OSTOMY APPLIANCE. OSTOMY PRODUCING FLATUS AND BROWN LIQ STOOL. HYPERACTIVE BT IN ALL QUADRANTS. PT ENCOURAGED TO INCREASE PO INTAKE. TPN INFUSING VIA MEDIPORT. PT DENIED SCHEDULED BANATROL POWDER AND REPORTS SHE DOES NOT LIKE BANANAS. INTEGRATED CIRCUIT FABRICATOR NOTIFIED PER DAY SHIFT RN.
[2019-10-06 05:30] LABS: Hematocrit 29.3 % (33.0-51.0); Mean Corpuscular HGB 29.9 pg (26.0-34.0); Mean Corpuscular HGB Conc 30.7 g/dL (31.5-36.5); Mean Corpuscular Volume 97 fL (80-100); Mean Platelet Volume 10.4 fL (9.1-12.4); NRBC ABSOLUTE 0.04 K/mm3 (0.00-0.02); NRBC Auto 0.4 /100 WBC (0.0-0.2); Platelet Count 455 K/mm3 (150-400); RDW Coefficient Variation 18.1 % (11.7-14.2); RDW Standard Deviation 57.4 fL (35.1-46.3); Red Blood Cell Count 3.01 M/mm3 (3.80-5.20); White Blood Cell Count 9.84 K/mm3 (4.00-11.30)
[2019-10-06 05:53] LABS: Albumin, Blood 0.9 g/dL (3.4-5.0); Anion Gap 5 mmol/L (6-16); Blood Urea Nitrogen 12 mg/dL (8-24); Bun/Creatinine Ratio 29.3 (12.0-20.0); CO2, Blood 26 mmol/L (21-32); Calcium, Blood 7.3 mg/dL (8.5-10.1); Chloride, Blood 109 mmol/L (98-108); Creatinine, Blood 0.41 mg/dL (0.40-1.00); Glomerular Filtration Rate >60 (60-); Glucose, Blood 114 mg/dL (70-99); Potassium, Blood 4.1 mmol/L (3.5-5.5); Sodium, Blood 140 mmol/L (136-145)
--- NOTE | 2019-10-06 17:29 | NUR ---
SUMMARY NO ACUTE CHANGES T/O SHIFT. PT PAINFUL T/O DAY. DR PENA ORDERED SCHEDULED NORCO BUT PT STATED COULD NOT SWALLOW PILL; ORDERS OBTAINED TO CHANGE TO HYDROCODONE/TYLENOL ELIXIR. PT REPORTED DID NOT PROVIDE ANY RELIEF AND REQUESTED OXYCODONE, STATING PILLS ARE SMALL ENOUGH TO SWALLOW. CALLED AND DISCUSSED W/DR PENA. ORDERS OBTAINED FOR SCHEDULED OXYCODONE. PT REFUSED BEING TURNED AND ALLOWING RN TO ASSESS BUTTOCKS UNTIL 1700. CHANGED MEPILEX DRESSING TO BUTTOCKS AT THIS TIME, SLOUGHING OF SKIN NOTED. PT ALLOWED PILLOW TO BE PLACED UNDER RIGHT HIP. DISCUSSED IMPORTANCE OF REPOSITIONING REGARDING SKIN BREAKDOWN. PT VERBALIZED UNDERSTANDING. PT PO INTAKE MINIMAL/VERY POOR. ADMINISTERED LISA PER ORDERS IN ENSURE, PT TOOK APPROXIMATELY 5% AND STATED COULD NOT DRINK ANYMORE, STATING CAUSED INCREASED ABDOMINAL PAIN. PT WITHDRAWN. CPN INFUSING PER ORDERS. WOUND VAC DRAINING DARK RED FLUID. HERNÁNDEZ DRAINING CLOUDY DARK YELLOW URINE. CALL LIGHT IN REACH.
--- NOTE | 2019-10-07 03:36 | NUR ---
I CALLED DR KATHLEEN BARILLAS TO OBTAIN ORDER FOR ADDITIONAL PAIN MEDS AND INCREASED FREQUENCY OF ZOFRAN.MEDICATED PER ORDERS. PT REPORTING IMPROVED PAIN CONTROL AND NAUSEA CONTROL.ALTHOUGH I DO NOTE PT HAS TEMP 100.7 WITH RESISTANCE OF REPOSITIONING AND OOB. ALSO RESISTANT REGARDING PULM TOILET.I NOTE HEART RATE CONTINUES IN 120'S AFTER REPORTED PAIN CONTROL OBTAINED.IN REVIEW OF I/O NOTE PT WITH DEFICIT INCLUSIVE OF PRIOR OSTOMY OUTPUT ALTHOUGH NO OUTPUT TONIGHT..MINIMAL INTAKE-SIPS TONIGHT.TPN @ 65 ML/HR AND URINE CONCENTRATED VIA HERNÁNDEZ.PT HAS HAD OUTPUT 300 ML SO FAR VIA HERNÁNDEZ. PT HAS ALSO HAD EXTRA FLUID OUT PER WOUND VAC WHICH IS CURRENTLY NOT MAINTAINING SX AND PT REFUSES IT CHANGED AT THIS TIME.FOLLOW UP CALL TO DR WANG WAITING RETURN CALL.
[2019-10-07 08:48] LABS: Albumin, Blood 0.9 g/dL (3.4-5.0); Anion Gap 3 mmol/L (6-16); Blood Urea Nitrogen 14 mg/dL (8-24); Bun/Creatinine Ratio 35.4 (12.0-20.0); CO2, Blood 27 mmol/L (21-32); Calcium, Blood 7.6 mg/dL (8.5-10.1); Chloride, Blood 107 mmol/L (98-108); Glomerular Filtration Rate >60 (60-); Glucose, Blood 132 mg/dL (70-99); Phosphorus, Blood 3.1 mg/dL (2.5-4.9); Potassium, Blood 4.2 mmol/L (3.5-5.5); Sodium, Blood 137 mmol/L (136-145)
--- NOTE | 2019-10-07 11:19 | NUR ---
BANATROL/LISA/PO FLUIDS PT REFUSED LISA THIS AM, STATING IT CAUSED INCREASED ABD PAIN YESTERDAY. STATED WOULD TRY BANATROL IN APPLE SAUCE BUT HAS NOT, AT THIS POINT, TAKEN ANY. ENCOURAGED FLUIDS, PT REQUESTED FRESH CUP OF ICED APPLE CIDER WHICH WAS PROVIDED. REFUSED REPOSITION.
--- NOTE | 2019-10-07 13:37 | NUR ---
PT WANTS TO WAIT ON SCHEDULED ROXICODONE STATES JUST WOKE UP AND WANTS TO WAIT FOR AWHILE BEFORE TAKING.
--- NOTE | 2019-10-07 14:13 | NUR ---
REPOSITION PT ASKED TO BE BOOSTED UP IN BED. ALLOWED STAFF TO PLACE PILLOW UNDER R HIP. LINENS SOILED, ADVISED PT NEEDED TO CHANGE. PT ASKED TO WAIT HALF AN HOUR. DISCUSSED HAVING PT STAND AT BEDSIDE TO DO COMPLETE LINEN CHANGE. PT VERBALIZED UNDERSTANDING.
--- NOTE | 2019-10-07 18:08 | NUR ---
SUMMARY NO ACUTE CHANGES T/O SHIFT. MADE PT STAND AT SIDE OF BED SO SOILED LINENS COULD BE CHANGED THIS AFTERNOON. VERY SHAKY W/FWW. PT CONTINUES TO HAVE POOR PO INTAKE. AGREED TO TRY BANATROL IN APPLESAUCE BUT DID NOT END UP EATING ANY OF IT. REFUSED MEAL TRAYS. ONLY TOOK SIPS OF FLUIDS OFFERED. PAINFUL T/O SHIFT. MEDICATED PER ORDERS. PT REFUSING TYLENOL LIQUID. CALL LIGHT IN REACH.
--- NOTE | 2019-10-07 21:21 | NUR ---
PT ALERT AND SMILING. PASSING LIQUID YELLOW STOOL VIA OSTOMY TONIGHT.I MEDICATED PT FOR PAIN AND PT VERB ADEQUATE PAIN CONTROL WITH USE OF DILAUDID.
--- NOTE | 2019-10-08 00:22 | NUR ---
PT REFUSING LUAN FOR PAIN AND REPORTS PAIN LEVEL ELEVATING TO 9-10 IN BETWEEN DOSES OF IV DILAUDID. I CALLED DR WANG AND RECEIVED ORDERS FOR PO DILAUDID.
[2019-10-08 04:15] LABS: Hematocrit 27.1 % (33.0-51.0); Hemoglobin 8.3 g/dL (11.5-16.0); Mean Corpuscular HGB 29.6 pg (26.0-34.0); Mean Corpuscular HGB Conc 30.6 g/dL (31.5-36.5); Mean Corpuscular Volume 97 fL (80-100); Mean Platelet Volume 10.2 fL (9.1-12.4); NRBC ABSOLUTE 0.13 K/mm3 (0.00-0.02); NRBC Auto 1.4 /100 WBC (0.0-0.2); Platelet Count 512 K/mm3 (150-400); RDW Coefficient Variation 17.1 % (11.7-14.2); RDW Standard Deviation 54.4 fL (35.1-46.3); White Blood Cell Count 9.01 K/mm3 (4.00-11.30)
[2019-10-08 04:32] LABS: Albumin, Blood 0.9 g/dL (3.4-5.0); Anion Gap 2 mmol/L (6-16); Blood Urea Nitrogen 13 mg/dL (8-24); Bun/Creatinine Ratio 38.9 (12.0-20.0); CO2, Blood 28 mmol/L (21-32); Calcium, Blood 7.4 mg/dL (8.5-10.1); Chloride, Blood 108 mmol/L (98-108); Creatinine, Blood 0.33 mg/dL (0.40-1.00); Glomerular Filtration Rate >60 (60-); Glucose, Blood 129 mg/dL (70-99); Phosphorus, Blood 2.8 mg/dL (2.5-4.9); Potassium, Blood 3.9 mmol/L (3.5-5.5); Sodium, Blood 138 mmol/L (136-145)
--- NOTE | 2019-10-08 04:35 | NUR ---
PT WITH 300 OUT PER HERNÁNDEZ SO FAR TONIGHT.SCHDULED FOR ONLY 2L AT 100/HR TOTAL AND PT WAS ALREADY 3L DOWN WHEN FLUIDS WERE STARTED. PT HAVING INCREASED OUTPUT PER WOUND VAC AND IS HAVING OUTPUT VIA OSTOMY. URINE MUSE WITH SEDIMENT.PT TAKING ONLY SIPS PO FLUIDS AND CPN AT ONLY 65 ML/HR.I NOTIFIED DR WANG AND DISCUSSED ABOVE WITH ORDER FOR 2 MORE LITERS TO INFUSE.
--- NOTE | 2019-10-08 05:24 | NUR ---
When I went in to reposition pt I noticed a large ball of hair on her bed, I asked her if she was pulling her hair out and she said she hadn't brushed her hair that day and preceded to pull out a large chunk of hair. Nurse notified.
--- NOTE | 2019-10-08 15:30 | NUR ---
Pal Care visit and case conference with DR and RN. Spoke with Dr prior to my visit. Pt reporting that her pain is the primary limiting factor in her lack of participation with therapies. She reports poor pain control with the current IV/PO regime. Discussed options for improved primary pain relief and Dr to place order for Duragesic patch 25 mcg changed q72 hours. Spoke to pt's RN and then to pt re: plans for improved pain control. Pt reports severe abdominal pain that appears to be crampy but when asked about character of pain, pt states it is indescribable. She is holding her belly throughout my visit and appears to have waves of pain while talking. Pt appears very anxious and verbalizes feeling very anxious. When asked if she currently has or has had medications that helped her with anxiety pt did not know. Discussed this with Dr and recommended start of low dose ativan to assist with both anxiety and pain control. Returned to pt's room to discuss nonpharmacological interventions to assist wtih pain and anxiety management including increased mobility/movement, working with therapy. Also reviewed pain and anxiety management medications newly ordered, anticipated onset of benefit and full therapeutic level. Pt verbalized understanding and appreciation for visit and attempt to alleviate s/s per Dr and staff. She asked what would happen if it didn't work and I told her we would keep trying. She is verbalizing fear and grief related to the set back with her most recent surgery and events of past month or more. Will request Curing Room Worker visit later this kwan or tomorrow also. Spoke with Curing Room WorkerMichelle, who was involved in pt's care earlier in pt's stay. Updated her on current status, plan of care and requested visit in next 24 hours. Planned with pt for me to return tomorrow for another visit and s/s assessment.
--- NOTE | 2019-10-08 17:20 | NUR ---
SHIFT SUMMARY WOUND VAC CHANGED THIS SHIFT WITH MODERATE SANGUINOUS DRAINAGE. ILEOSTOMY WITH GREEN LIQ STOOL + GAS PRESENT. HERNÁNDEZ WITH DARK YELLOW URINE AND SEDIMENT NOTED IN TUBING. PT HAS COMPLAINED OF CONSTANT PAIN THIS SHIFT. MEDICATING WITH PO AND IV DILAUDID PER ORDERS. PALLIATIVE CARE DID SEE PT THIS SHIFT AND ADDED A FENTANYL PATCH + ATIVAN TO HER PAIN REGIMEN. PT REPORTS FEELING BETTER AFTER ATIVAN AND REPORTED PAIN TO BE A 2/10. PT HAS BEEN REFUSING REPOSITIONING EXCEPT TO BE BOOSTED UP IN BED. PT HAS CONT TO REFUSE MEAL TRAYS AND HAS ONLY ASKED FOR APPLE CIDER WHICH SHE HAS MINIMALLY TAKEN IN. TPN INFUSING PER ORDERS. PT APPEARS TO BE DEPRESSED AND WITHDRAWN AT TIMES, SUPPORT AND ENCOURAGMENT PROVIDED PRN. CALL LIGHT WITHIN REACH.
--- NOTE | 2019-10-09 05:18 | NUR ---
SHIFT SUMMARY: RHAEEM IS A&OX4. SHE HAS REPORTED SIGNIFICANT DIFFICULTIES WITH PAIN THIS SHIFT. WHEN AWAKE, SHE IS COMPLAINING OF 8/10 PAIN FOR WHICH SHE HAS REQUESTED 1 MG OF IV DILAUDID. SHE HAS DECLINED THE ORAL DILAUDID AND OXYCODONE, BUT HAS TAKEN THE ORAL ATIVAN. WOUND VAC PATENT TO MIDLINE INCISION. OSTOMY PUTTING OUT DARK GREEN LIQUID AND FLATUS. SHE IS TAKING ONLY SIPS OF LIQUIDS, DENIES ANY OTHER PO INTAKE INCLUDING THE ORDERED SUPPLEMENTS. SHE IS ABLE TO MOVE HERSELF MINIMALLY IN BED AND DECLINES REPOSITIONING EXCEPT BOOSTING UP IN BED. SHE HAS DECLINED PILLOW PLACEMENT FOR COMFORT. SHE DECLINED TO HAVE THE MEPILEX ON HER COCCYX CHANGED THIS SHIFT. SHE IS WITHDRAWN. HERNÁNDEZ DRAINING DARK YELLOW URINE WITH SEDIMENT VISIBLE IN TUBING. SHE USES HER CALL LIGHT APPROPRIATELY. WILL REPORT TO DAY SHIFT RN.
[2019-10-09 09:40] LABS: Hematocrit 27.9 % (33.0-51.0); Hemoglobin 8.3 g/dL (11.5-16.0); Mean Corpuscular HGB 29.5 pg (26.0-34.0); Mean Corpuscular HGB Conc 29.7 g/dL (31.5-36.5); Mean Corpuscular Volume 99 fL (80-100); Mean Platelet Volume 10.5 fL (9.1-12.4); NRBC ABSOLUTE 0.18 K/mm3 (0.00-0.02); NRBC Auto 1.6 /100 WBC (0.0-0.2); Platelet Count 556 K/mm3 (150-400); RDW Coefficient Variation 17.1 % (11.7-14.2); Red Blood Cell Count 2.81 M/mm3 (3.80-5.20); White Blood Cell Count 11.22 K/mm3 (4.00-11.30)
[2019-10-09 10:09] LABS: Alanine Aminotransfer (ALT/SGP 61 U/L (12-78); Albumin, Blood 0.9 g/dL (3.4-5.0); Albumin/Globulin Ratio 0.2 (0.8-1.8); Alk Phos 432 U/L (50-136); Anion Gap 3 mmol/L (6-16); Aspartate Aminotrans (AST/SGOT 35 U/L (12-37); Bilirubin, Total 1.1 mg/dL (0.1-1.0); Blood Urea Nitrogen 11 mg/dL (8-24); Bun/Creatinine Ratio 33.4 (12.0-20.0); CO2, Blood 27 mmol/L (21-32); Calcium, Blood 7.8 mg/dL (8.5-10.1); Chloride, Blood 110 mmol/L (98-108); Creatinine, Blood 0.33 mg/dL (0.40-1.00); Globulin, Blood 5.2 g/dL (2.2-4.0); Glomerular Filtration Rate >60 (60-); Glucose, Blood 115 mg/dL (70-99); Potassium, Blood 3.9 mmol/L (3.5-5.5); Sodium, Blood 140 mmol/L (136-145); Total Protein, Blood 6.1 g/dL (6.4-8.2)
[2019-10-09 10:34] LABS: BAND PERCENT MAN 18 % (0-8); BASOPHILS PERCENT MAN 0 % (0-2); EOSINOPHILS ABSOLUTE MAN 0.11 K/mm3 (0.00-0.68); EOSINOPHILS PERCENT MAN 1 % (0-6); LYMPHOCYTES ABSOLUTE MAN 1.23 K/mm3 (0.84-5.20); LYMPHOCYTES PERCENT MAN 11 % (21-46); METAMYELOCYTE ABSOLUTE MAN 0.33 K/mm3 (0.00-0.00); METAMYELOCYTE PERCENT MAN 3 % (0-0); MONOCYTES ABSOLUTE MAN 0.89 K/mm3 (0.16-1.47); MONOCYTES PERCENT MAN 8 % (4-13); MYELOCYTE ABSOLUTE MAN 0.44 K/mm3 (0.00-0.00); MYELOCYTE PERCENT MAN 4 % (0-0); NEUTROPHILS ABSOLUTE MAN 8.19 K/mm3 (1.96-9.15); SEG NEUTROPHILS PERCENT MAN 55 % (41-73); TOTAL CELLS COUNTED 100
--- NOTE | 2019-10-09 11:51 | NUR ---
Attempted to see pt again. She remains very sleepy. RN to call me when she is awake. Spoke with Patching Machine Operator again re: pt's withdrawn behaviour, declining basic care interventions and on my conversation with pt's SO again this am.
--- NOTE | 2019-10-09 13:58 | NUR ---
[facility] Care visit: Upon entering room pt is up in chair and states she is glad to see me. She reports much better pain and anxiety management than yesterday. Chief c/o today is "problem with bladder". S/s of wave like abd pain noted during visit again. I asked about calles catheter & asked pt if she felt like she could transfer to commode to void if catheter was removed. Discussed possible bladder spasms as the source of discomfort. Pt felt she needed to be stronger for being able to transfer regularly to commode. She said she was having trouble getting her bladder to drain, however, calles bag and tube noted to have clear dk yellow urine present and moving/draining thru tube to bag. Discussed pt's mood with her, improved mood with OT session. OT notes reviewed prior to my visit. Encouraged pt to be up, out of room, moving as much as possible as one of the best remedies for depression and pain. Inquired if pt had ever taken antidepressants previously or felt depressed enough to ask Dr about that. Pt states she has not been prescribed antidepressants before and might like to try some but is unsure because she hates taking medications. Asked her to talk to the dr further about that if she had questions or thought she might like to. We talked about the challenges ahead of her, need for more time out of bed and improved nutrition for wound healing and prevention of additional or worsening wounds. She says she is not ready to go home. Time spent listening and enouraging better PO intake, more activity in/out of bed, allowing staff to care for her to get her more prepared for successful d/c home. OT recommending HH therapy and SO hoping for HH services for support and continued care. Report on my visit given to pt's RN. Pt was able to smile a couple of times and converse much more easily today. Planned am visit with her tomorrow. I will also touch bases with her SO by phone tomorrow as prev planned.
--- NOTE | 2019-10-09 15:55 | NUR ---
Routine spiritual care note: I met with Camryn at request of palliative care RN to discuss pt's non-compliance. Camryn was tearful throughout conversation and clearly overwhelmed. She admits she is fearful of pain and has been refusing PO medication b/c "it takes too long to work." Pain has also kept her from being wiling to work with PT. We had a lengthy discussion and I was able to gain rapport. Asked Camryn if she was willing to fight cancer. She said she is. We discussed "working through the pain" and the importantce of compliancy to recovery. Emphasized the things she stated are important to her: Dtr, SO... Addressed her reluctancy to seek help after last admission. She admits she wanted to stay in denial. Addressed that all of this was her choice, of course, and that we would honor her wishes. She does not appear to understand the pain associated with food intake post-op. She may benefit from education as to the healing process from her surgery and what this entails. Medical literacy appears to be low. Therefore, [id number] terminology may go a long way to bringing Camryn some comfort. Camryn is non-shinto, but appeared to benefit from theraputic listening, gentle breastfeeding peer counselor, and emotional affirmation. I will remain available.
--- NOTE | 2019-10-09 16:04 | NUR ---
SHIFT SUMMARY PT APPEARS TO HAVE HAD A BETTER DAY THAN YESTERDAY. PT WORKED WITH OT AND WAS ABLE TO GET INTO W/C AND LEAVE ROOM FOR A BIT WITH THE THERAPIST. PT APPEARED TO BE WEAK DURING TRANSFER BACK TO BED, BUT DID FAIRLY WELL. PT HAS BEEN RECEIVING 1 MG IV DILAUDID FOR PAIN AND HAS HAD ATIVAN X1 THIS SHIFT. FENTANYL PATCH STILL IN PLACE TO LEFT SHOULDER. ZOFRAN GIVEN X1 FOR NAUSEA. WOUND VAC TO ABD REMAINS COMPRESSED WITH MODERATE SS DRAINAGE IN CANISTER. PT STILL CONT TO REFUSE REPOSITIONING, BUT IS ALLOWING STAFF TO BOOST HER UP IN BED. LINENS WERE CHANGED TODAY WHEN PT WAS WORKING WITH OT. PT STILL CONT TO MINIMALLY SIP ON APPLE JUICE AND WATER, BUT HAS VERY POOR PO INTAKE AND REFUSES MEAL TRAYS. TPN INFUSING PER ORDERS. HERNÁNDEZ CONT TO DRAIN DARK ORANGE URINE WITH SEDIMENT PRESENT. PLANNING TO DC HERNÁNDEZ WHEN PT'S PAIN IS TOLERABLE. PT CONT TO BE WITHDRAWN AND APPEARS TO BE DEPRESSED. PALLIATIVE CARE SEEING PT. PT USES CALL LIGHT APPROPRIATELY.
--- NOTE | 2019-10-09 16:27 | NUR ---
PT REFUSING TO HAVE HERNÁNDEZ CATH DC'D TODAY.
--- NOTE | 2019-10-10 00:37 | NUR ---
Patient allowed staff to reposition in bed, pt able to turn left to right with minimal assistance. Medicated with dilaudid IV approx Q4 hours for abdominal pain. patient also requests zofran for nausea. No vomiting. Patient is conversive with staff and cooperative with most care. pt preferred not to have me look at her coccyx which is covered by a mepilex. I will attempt to assess later this shift. call light in reach.
--- NOTE | 2019-10-10 06:16 | NUR ---
SHIFT SUMMARY PATIENT CONTINUES TO HAVE PAIN RELATED TO HER ABDOMENN, OSTOMY IS SECURE, BAG IS CLEANED. MIDLINE WITH WOUND VAC, COMPRESSED, AND DRAINING S/S FLUID. NO ACUTE CHANGES TO PT CONDITION. CALL LIGHT IN REACH.
--- NOTE | 2019-10-10 08:20 | NUR ---
pt req pain meds 7/10 pt was sleeping stated pain after meds down to 0/10 stated she has nausea and itching with the meds no emesis has some bruising noted to the chest from the itching
--- NOTE | 2019-10-10 09:55 | NUR ---
PALLATIVE CARE NURSE BY TO SEE PT
--- NOTE | 2019-10-10 10:40 | NUR ---
Palliative Care visit earlier this am. Pt reports improved pain but still has breakthrough pain requiring IV pain medication approx q4h. Spoke with pt re: benefit of using PO medications for longer effect and to aid in prep for homegoing. She doesn't want to use PO because she states it takes too long to work. Asked if she could report pain as it was increasing and request PO pain medication before pain was intolerable to give it time to be effective for improved pain management. Pt reports dry mouth. Education given on measures to alleviate dry mouth and causes of dry mouth as a side effect of pain and anti nausea medications. I brought pt hard candies, some cold snacks (jello & canned peaches) and lemon juice. RN to order lemon wedges for pt to add to water and beverages. Discussed ways to increase production of saliva with more frequent bites of food and sips of fluids frequently, the hard candies and citrus. Pt appreciative. Attempted to educate pt more on gut function and healing, wound healing but pt resistant and sl dismissive. "I know what I need to do, to be honest." Although she is resistant to input she is much more interactive today than she was on Tuesday or Tuesday and conversive. I asked if she felt up for a visitor and she said no that distractions like conversation added to her nausea and pain, with SO in particular because he talks a lot per pt. She gave me permission to give him a brief update by phone which I did. Pt still has calles cath and declined to have it discontinued yesterday pm. Very dk yellow, to lt brown urine noted in bag. We discussed nonpharmocological measures to help with nausea, anxiety and pain, especially increased activity. Pt had a good visit with our Fishing Gear Mechanic yest pm and states that was helpful. If pt goes directly home, I believe she will need HH RN for wound care and s/s management, PT/OT, INSURANCE AGENCY OWNER and an MILK ROUTE DELIVERER would be helpful is she is receptive. She will need a PCP for HH orders. SO is stating that he needs significant help in caring for her and that she needs to be one person SBA or minimal assist with transfers at home due to his recent neck surgery. He was struggling to care for her prior to admission. In talking with SO he has been trying for 6 weeks to get pt established with a PCP. She was assigned to [facility]. I spoke with CM yesterday regarding this. SO states no one has called him yet. Today, I also spoke with [facility] managed care coordinator who will f/u with CM and SO to assist with process where able. Pt has not been seen by any providers at [facility] yet and paperwork still needs to be completed. SO is offereing to do any part of that that he can. I spoke with pt's RN at length after my visit also and plan of care discussed. Pal care to continue regular visits as schedule allows.
--- NOTE | 2019-10-10 14:30 | NUR ---
pt oob in wc next to the window pt calles cath flushed per req flushing w/o difficulty enc pt to drink more fluids urine is dark orange today
--- NOTE | 2019-10-10 15:51 | NUR ---
pt resting back in bed
--- NOTE | 2019-10-10 19:00 | NUR ---
pt did not eat dinner bites only pt painful po ativan given next dose of pain meds instructed pt is at 8 pm
--- NOTE | 2019-10-11 05:40 | NUR ---
SHIFT SUMMARY HAS RESTED OFF AND ON, NO ACUTE CHANGES THIS SHIFT. LYING IN HIGH FOWLERS WITH EYES CLOSED. MIDLINE WOUND VAC IN PLACE DRAINING SANGUINOUS FLUID. RIGHT OSTOMY NOTED WITH FLATUS AND LIQUID STOOL IN BAG. MEDICATED FOR PAIN X3 THIS SHIFT. HAS DENIED DISCOMFORT, OR FURTHER NEEDS AT THIS TIME. SAFETY MEASURES IN PLACE. WILL CONTINUE TO MONITOR AND GIVE HAND OFF TO ONCOMING SHIFT USING SBAR DURING BEDSIDE REPORT.
--- NOTE | 2019-10-11 06:00 | NUR ---
WOUND VAC CANISTER CHANGED, 1000ML SEROSANGIUNEOUS FLUID NOTED. TOLERATED WELL. SAFETY MEASURES IN PLACE. WILL CONTINUE TO MONITOR.
[2019-10-11] MEDS ORDERED: Feverall650 MG PR (11:47)
[2019-10-11] MEDS ORDERED: ACET325UDC PO (11:48)
[2019-10-11] MEDS ORDERED: METO25ER PO (11:49)
[2019-10-11] MEDS ORDERED: PANT40 PO (11:50)
[2019-10-11] MEDS ORDERED: FENTANYL1 EA10 TD (11:51)
--- NOTE | 2019-10-11 13:44 | NUR ---
PLACED NEW MEPILEX TO PT'S SACRUM/BUTTOCKS.
--- NOTE | 2019-10-11 15:04 | NUR ---
PT REFUSED TO POSITION W/PILLOW UNDER HIP
--- NOTE | 2019-10-11 15:41 | NUR ---
CHANGED WOUND VAC AND OSTOMY APPLIANCE. CUT PT'S HOME OSTOMY POUCH TO 35MM ROUND. PT PREFERRED HOME OSTOMY SUPPLIES USED. NOW RESTING IN BED W/CALL LIGHT IN REACH.
--- NOTE | 2019-10-11 16:10 | NUR ---
Attempted to meet with Camryn this afternoon. She did not want to talk and states that talking about her pain and going home upsets her. Emotional support given. Talked with nursing and updated lodge officer.
--- NOTE | 2019-10-11 16:11 | NUR ---
PT REFUSED HERNÁNDEZ DC
--- NOTE | 2019-10-11 17:35 | NUR ---
COLIN DEACCESSED, REACCESSED WITH 20G 3/4INCH NEEDLE PER PROTOCOL, PT TOLERATED PROCEDURE WELL.
--- NOTE | 2019-10-11 18:41 | NUR ---
SUMMARY NO ACUTE CHANGES T/O SHIFT. PT REFUSED REPOSITIONING T/O MOST OF SHIFT. ALLOWED MEPILEX TO SACRUM CHANGED WHEN LINENS WERE CHANGED. CHANGED WOUND VAC AND OSTOMY APPLIANCE. KRISTINA RN, CHANGED MEDIPORT NEEDLE/DRESSING. PT'S PO INTAKE POOR, DID SIP SOME LIQUIDS DURING SHIFT. MEDICATED PER ORDERS T/O SHIFT FOR PAIN AND NAUSEA. CALL LIGHT IN REACH.
[2019-10-12 03:42] LABS: Hematocrit 26.9 % (33.0-51.0); Hemoglobin 8.4 g/dL (11.5-16.0); LYMPHOCYTES ABSOLUTE AUTO 1.47 K/mm3 (0.84-5.20); LYMPHOCYTES PERCENT AUTO 9 % (21-46); MONOCYTES ABSOLUTE AUTO 1.38 K/mm3 (0.16-1.47); MONOCYTES PERCENT AUTO 8 % (4-13); Mean Corpuscular HGB 29.5 pg (26.0-34.0); Mean Corpuscular HGB Conc 31.2 g/dL (31.5-36.5); Mean Platelet Volume 10.3 fL (9.1-12.4); NRBC ABSOLUTE 0.28 K/mm3 (0.00-0.02); NRBC Auto 1.7 /100 WBC (0.0-0.2); Platelet Count 592 K/mm3 (150-400); RDW Coefficient Variation 16.7 % (11.7-14.2); RDW Standard Deviation 53.8 fL (35.1-46.3); Red Blood Cell Count 2.85 M/mm3 (3.80-5.20); White Blood Cell Count 16.81 K/mm3 (4.00-11.30)
[2019-10-12 03:44] LABS: BASOPHILS ABSOLUTE AUTO 0.03 K/mm3 (0.00-0.23); BASOPHILS PERCENT AUTO 0 % (0-2); EOSINOPHILS ABSOLUTE AUTO 0.22 K/mm3 (0.00-0.68); EOSINOPHILS PERCENT AUTO 1 % (0-6); IMMATURE GRAN ABSOLUTE AUTO 2.85 K/mm3 (0.00-0.10); IMMATURE GRAN PERCENT AUTO 17 % (0-1); Mean Corpuscular Volume 94 fL (80-100); NEUTROPHILS ABSOLUTE AUTO 10.86 K/mm3 (1.96-9.15); NEUTROPHILS PERCENT AUTO 65 % (41-73)
[2019-10-12 03:59] LABS: Alanine Aminotransfer (ALT/SGP 56 U/L (12-78); Albumin, Blood 0.8 g/dL (3.4-5.0); Albumin/Globulin Ratio 0.2 (0.8-1.8); Alk Phos 483 U/L (50-136); Anion Gap 2 mmol/L (6-16); Aspartate Aminotrans (AST/SGOT 35 U/L (12-37); Bilirubin, Total 1.1 mg/dL (0.1-1.0); Blood Urea Nitrogen 9 mg/dL (8-24); Bun/Creatinine Ratio 26.3 (12.0-20.0); CO2, Blood 29 mmol/L (21-32); Calcium, Blood 7.3 mg/dL (8.5-10.1); Chloride, Blood 103 mmol/L (98-108); Creatinine, Blood 0.34 mg/dL (0.40-1.00); Globulin, Blood 5.2 g/dL (2.2-4.0); Glomerular Filtration Rate >60 (60-); Glucose, Blood 124 mg/dL (70-99); Magnesium, Blood 1.8 mg/dL (1.6-2.4); Potassium, Blood 3.9 mmol/L (3.5-5.5); Sodium, Blood 134 mmol/L (136-145)
[2019-10-12 04:07] LABS: BAND PERCENT MAN 19 % (0-8); BASOPHILS PERCENT MAN 0 % (0-2); EOSINOPHILS ABSOLUTE MAN 0.16 K/mm3 (0.00-0.68); EOSINOPHILS PERCENT MAN 1 % (0-6); LYMPHOCYTES ABSOLUTE MAN 1.34 K/mm3 (0.84-5.20); LYMPHOCYTES PERCENT MAN 8 % (21-46); METAMYELOCYTE ABSOLUTE MAN 1.17 K/mm3 (0.00-0.00); METAMYELOCYTE PERCENT MAN 7 % (0-0); MONOCYTES ABSOLUTE MAN 1.51 K/mm3 (0.16-1.47); MONOCYTES PERCENT MAN 9 % (4-13); MYELOCYTE PERCENT MAN 3 % (0-0); SEG NEUTROPHILS PERCENT MAN 53 % (41-73); TOTAL CELLS COUNTED 100
--- NOTE | 2019-10-12 07:40 | NUR ---
SUMMARY PT CONTINUES TO REQUIRE PO AND IV MEDS FOR PAIN. REFUSES MOST REPOSITIONING AND REFUSES HERNÁNDEZ REMOVED.MED FOR AMXIETY THIS AM.
--- NOTE | 2019-10-12 11:40 | NUR ---
DR. JACKSON'S OFFICE CALLED PER DR. MOBLEY'S REQUEST TO HAVE PT BE SEEN TODAY REGARDING INCREASE IN WBC AND PERSISTENT ABD PAIN, SPOKE TO DR. RASHEED WHO IS THE SURGEOIN FUND MANAGER, STATES HE WILL HAVE DR. JACKSON SEE PT IF NOT, HE WILL COME AND SEE PT.
--- NOTE | 2019-10-12 13:26 | NUR ---
TO CT VIA CART
--- NOTE | 2019-10-12 13:54 | NUR ---
RETURN TO ROOM FROM CT
--- NOTE | 2019-10-12 19:50 | NUR ---
SUMMARY PT WITHDRAWN, TEARFUL AT TIMES. PT STATES DOES NOT WANT TO LOOK AT OSTOMY, HAS DECLINED GETTING OOB THIS SHIFT. PT REPOSITIONS SELF SLIGHTLY IN BED BUT DOES NOT WANT TO BE TURNED IN BED AND PROPPED WITH PILLOWS. PT COOPERATIVE AND APPRECIATIVE OF CARE. WOUND VAC IN PLACE TO ABDOMEN. PT REPORTS PAIN LEVEL IS "ABOUT THE SAME IT HAS BEEN" WHICH IS AN ACCEPTABLE LEVEL TO HER. INTERMITTENT NAUSEA CONTROLLED WITHZOFRAN. PT TOOK A FEW SIPS OF APPLE JUICE AND DECLINED ANYOTHER FOOD OR FLUIDS. ENCOURAGED PT TO HAVE HER SIGNIFICANT OTHER BRING IN ANY FOODS OR FLUIDS THAT SHE MIGHT ENJOY
--- NOTE | 2019-10-13 04:31 | NUR ---
SHIFT SUMMARY PT HAS BEEN A/O X4. PT HAS SEEMED SLIGHTLY ANXIOUS/DEPRESSED THROUGHOUT THE SHIFT. DISCUSSED CARE WITH PT, INCLUDING PARTICIPATING IN OT. PT REPORTS SHE HAS BEEN IN TOO MUCH PAIN TO GET OUT OF BED, HOWEVER SHE REPORTS SHE DOES DO SOME LEG EXERCISES IN BED. DISCUSSED IMPORTANCE OF NUTRITION AND MAINTAINING AND IMPROVING STRENGTH. PT SEEMS TO HAVE UNDERSTANDING OF THIS. PT REPORTS TOLERATING SMALL AMTS JUICE AND WATER BUT HAS DIFFICULTY TOLERATING FOOD. PO FLUIDS ENCOURAGED. PAIN IS BEING MANAGED WITH PO AND IV PAIN MEDS. PT HAS ALSO BEEN MED WITH ZOFRAN X2 THIS SHIFT BUT HAS NOT HAD EMESIS. HERNÁNDEZ IN PLACE, PATENT. OSTOMY IN PLACE DRAINING BROWN LIQUID STOOL. WOUND VAC TO ABD CDI, FOAM COMPRESSED. CPN HAS BEEN INFUSING IN MEDIPORT. PREVENTATIVE MEPILEX'S TO HEELS CHANGED DURING THE NIGHT. PT HAS NOT WANTED TO BE TURNED; UNABLE TO ASSESS SACRAL AREA. NO ACUTE CHANGES OVERNIGHT. ASSISTED WITH ADL'S PRN.
[2019-10-13 06:07] LABS: Hematocrit 26.5 % (33.0-51.0); Hemoglobin 8.4 g/dL (11.5-16.0); Mean Corpuscular HGB 29.7 pg (26.0-34.0); Mean Corpuscular HGB Conc 31.7 g/dL (31.5-36.5); Mean Corpuscular Volume 94 fL (80-100); Mean Platelet Volume 10.4 fL (9.1-12.4); NRBC ABSOLUTE 0.23 K/mm3 (0.00-0.02); NRBC Auto 1.4 /100 WBC (0.0-0.2); Platelet Count 612 K/mm3 (150-400); RDW Coefficient Variation 16.8 % (11.7-14.2); RDW Standard Deviation 52.3 fL (35.1-46.3); Red Blood Cell Count 2.83 M/mm3 (3.80-5.20); White Blood Cell Count 15.99 K/mm3 (4.00-11.30)
[2019-10-13 06:32] LABS: Alanine Aminotransfer (ALT/SGP 52 U/L (12-78); Albumin, Blood 0.8 g/dL (3.4-5.0); Albumin/Globulin Ratio 0.2 (0.8-1.8); Alk Phos 433 U/L (50-136); Anion Gap 4 mmol/L (6-16); Aspartate Aminotrans (AST/SGOT 32 U/L (12-37); Bilirubin, Total 1.1 mg/dL (0.1-1.0); Blood Urea Nitrogen 8 mg/dL (8-24); Bun/Creatinine Ratio 18.7 (12.0-20.0); CO2, Blood 30 mmol/L (21-32); Calcium, Blood 7.5 mg/dL (8.5-10.1); Chloride, Blood 100 mmol/L (98-108); Creatinine, Blood 0.43 mg/dL (0.40-1.00); Glomerular Filtration Rate >60 (60-); Glucose, Blood 98 mg/dL (70-99); Potassium, Blood 3.7 mmol/L (3.5-5.5); Sodium, Blood 134 mmol/L (136-145); Total Protein, Blood 5.8 g/dL (6.4-8.2)
[2019-10-13 06:46] LABS: BAND PERCENT MAN 8 % (0-8); BASOPHILS PERCENT MAN 0 % (0-2); EOSINOPHILS ABSOLUTE MAN 0.47 K/mm3 (0.00-0.68); EOSINOPHILS PERCENT MAN 3 % (0-6); LYMPHOCYTES ABSOLUTE MAN 1.27 K/mm3 (0.84-5.20); LYMPHOCYTES PERCENT MAN 8 % (21-46); METAMYELOCYTE ABSOLUTE MAN 0.79 K/mm3 (0.00-0.00); METAMYELOCYTE PERCENT MAN 5 % (0-0); MONOCYTES ABSOLUTE MAN 0.95 K/mm3 (0.16-1.47); MONOCYTES PERCENT MAN 6 % (4-13); MYELOCYTE ABSOLUTE MAN 0.95 K/mm3 (0.00-0.00); MYELOCYTE PERCENT MAN 6 % (0-0); NEUTROPHILS ABSOLUTE MAN 11.51 K/mm3 (1.96-9.15); SEG NEUTROPHILS PERCENT MAN 64 % (41-73); TOTAL CELLS COUNTED 100
[2019-10-13 12:22] LABS: International Normalized Ratio 1.23
--- NOTE | 2019-10-13 15:08 | NUR ---
WOUND VAC WOUND VAC DRESSING/FOAM/CANISTER CHANGED. MODERATE AMOUNTS OF PURULENT/SEROSANGUINOUS DRAINAGE. NEXT WOUND VAC CHANGE ON Tuesday10/15/19.
--- NOTE | 2019-10-13 16:31 | NUR ---
Shift summary Patient had a pigtail drain placed today to drain peritoneal fluid. Pain controlled with scheduled Oxycodone with IV Dilaudid q4 hours. Beckman catheter patent and draining dark/cloudy urine. Ilesotomy putting out small amount liquid brown stool. TPN infusing through Mediport. AOx3. PO intake encouraged. Patient agreed to take pills this am with a chocolate Ensure. Patient encouraged to mobilize. Call light within patient reach.
[2019-10-14 05:48] LABS: BASOPHILS ABSOLUTE AUTO 0.07 K/mm3 (0.00-0.23); BASOPHILS PERCENT AUTO 1 % (0-2); Hemoglobin 8.2 g/dL (11.5-16.0); LYMPHOCYTES ABSOLUTE AUTO 1.01 K/mm3 (0.84-5.20); LYMPHOCYTES PERCENT AUTO 9 % (21-46); MONOCYTES ABSOLUTE AUTO 0.68 K/mm3 (0.16-1.47); MONOCYTES PERCENT AUTO 6 % (4-13); Mean Corpuscular HGB 29.4 pg (26.0-34.0); Mean Corpuscular HGB Conc 30.4 g/dL (31.5-36.5); Mean Platelet Volume 10.6 fL (9.1-12.4); NRBC ABSOLUTE 0.18 K/mm3 (0.00-0.02); NRBC Auto 1.5 /100 WBC (0.0-0.2); Platelet Count 669 K/mm3 (150-400); RDW Coefficient Variation 16.4 % (11.7-14.2); RDW Standard Deviation 54.2 fL (35.1-46.3); Red Blood Cell Count 2.79 M/mm3 (3.80-5.20); White Blood Cell Count 11.92 K/mm3 (4.00-11.30)
[2019-10-14 06:01] LABS: EOSINOPHILS ABSOLUTE AUTO 0.51 K/mm3 (0.00-0.68); EOSINOPHILS PERCENT AUTO 4 % (0-6); IMMATURE GRAN ABSOLUTE AUTO 0.71 K/mm3 (0.00-0.10); IMMATURE GRAN PERCENT AUTO 6 % (0-1); Mean Corpuscular Volume 97 fL (80-100); NEUTROPHILS ABSOLUTE AUTO 8.94 K/mm3 (1.96-9.15); NEUTROPHILS PERCENT AUTO 75 % (41-73)
[2019-10-14 06:05] LABS: Alanine Aminotransfer (ALT/SGP 45 U/L (12-78); Albumin, Blood 1.4 g/dL (3.4-5.0); Albumin/Globulin Ratio 0.3 (0.8-1.8); Alk Phos 369 U/L (50-136); Anion Gap 4 mmol/L (6-16); Aspartate Aminotrans (AST/SGOT 20 U/L (12-37); Bilirubin, Total 0.7 mg/dL (0.1-1.0); Blood Urea Nitrogen 8 mg/dL (8-24); Bun/Creatinine Ratio 18.6 (12.0-20.0); CO2, Blood 30 mmol/L (21-32); Calcium, Blood 7.6 mg/dL (8.5-10.1); Chloride, Blood 100 mmol/L (98-108); Creatinine, Blood 0.43 mg/dL (0.40-1.00); Globulin, Blood 4.6 g/dL (2.2-4.0); Glomerular Filtration Rate >60 (60-); Glucose, Blood 104 mg/dL (70-99); Magnesium, Blood 1.9 mg/dL (1.6-2.4); Potassium, Blood 3.5 mmol/L (3.5-5.5); Sodium, Blood 134 mmol/L (136-145)
[2019-10-14 06:14] LABS: BAND PERCENT MAN 2 % (0-8); BASOPHILS PERCENT MAN 0 % (0-2); EOSINOPHILS ABSOLUTE MAN 0.35 K/mm3 (0.00-0.68); EOSINOPHILS PERCENT MAN 3 % (0-6); LYMPHOCYTES ABSOLUTE MAN 0.71 K/mm3 (0.84-5.20); LYMPHOCYTES PERCENT MAN 6 % (21-46); METAMYELOCYTE ABSOLUTE MAN 0.35 K/mm3 (0.00-0.00); METAMYELOCYTE PERCENT MAN 3 % (0-0); MONOCYTES ABSOLUTE MAN 0.23 K/mm3 (0.16-1.47); MONOCYTES PERCENT MAN 2 % (4-13); MYELOCYTE ABSOLUTE MAN 0.11 K/mm3 (0.00-0.00); MYELOCYTE PERCENT MAN 1 % (0-0); NEUTROPHILS ABSOLUTE MAN 10.13 K/mm3 (1.96-9.15); SEG NEUTROPHILS PERCENT MAN 83 % (41-73); TOTAL CELLS COUNTED 100
--- NOTE | 2019-10-14 06:37 | NUR ---
SHIFT SUMMARY PT IS A/O X4 BUT IS FORGETFUL AT TIMES. PT HAS BEEN IN BED THROUGHOUT THE NIGHT. PT HAS REFUSED REPOSITIONING EXCEPT ONCE TO ALLOW FOR LINENS TO BE CHANGED WHEN SOILED. WHEN LINENS WERE CHANGED, MEPILEX TO COCCYX WAS ALSO CHANGED AND AREA WAS CLEANED WITH WOUND CLEANSER. PT EDUCATED ABOUT REPOSITIONING BUT CONTINUED TO REFUSE REPOSITIONING. PAIN HAS BEEN MANAGED WITH IV AND PO PAIN MEDS PER ORDERS. SEE EMAR. PT HAS ALSO BEEN MED WITH ZOFRAN Q4 PER ORDER FOR NAUSEA. PT REPORTS NO EMESIS. HERNÁNDEZ HAS BEEN IN PLACE THROUGHOUT THE NIGHT PT CONT. TO REFUSE REMOVAL OF CATH. WOUND VAC FOAM HAS BEEN COMPRESSED T/O SHIFT. PIGTAIL DRAIN IN PLACE AND WORKING WELL. OSTOMY PUTTING OUT BROWN LIQUID STOOL. NO ACUTE CHANGES.
--- NOTE | 2019-10-14 09:07 | NUR ---
PT AGREED TO REPOSITIONING WITH PILLOWS UNDER HER RIGHT SIDE. EDUCATED ON IMPORTANCE OF REPOSITIOING AT LEAST Q2H TO REDUCE PRESSURE TO HER ULCER ON HER COCCYX. PT SO FAR AGREEABLE.
--- NOTE | 2019-10-14 17:30 | NUR ---
SHIFT SUMMARY PT APPEARS TO BE IN HIGHER SPIRITS TODAY. PT ALLOWED SIGNIFICANT OTHER TO VISIT. PT DID ATTEMPT TO BE REPOSITIONED OFF OF COCCYX WITH PILLOWS, BUT SHORTLY AFTER WANTED THEM REMOVED AND NOW REFUSES POSITION CHANGES EXCEPT TO BE BOOSTED UP IN BED. ENCOURAGED PO INTAKE TODAY AND PT CONT TO REFUSE MEALS. TPN STILL INFUSING PER ORDERS. WOUND VAC DRESSING CHANGED TODAY PER NEW WOUND CARE ORDERS. URECIL DRAIN TO RLQ WITH RED DRAINAGE. OSTOMY PUTTING OUT GAS + LIQ GREEN OUTPUT. HERNÁNDEZ WITH DARK ORANGE URINE AND SEDIMENT PRESENT IN TUBING AND HERNÁNDEZ BAG. NEW FENTANYL PATCH PLACED TODAY + 1MG IV DILAUDID + PO ATIVAN FOR PAIN MANAGMENT. PALLIATIVE CARE IN ROOM AT THIS TIME. PT USES CALL LIGHT APPROPRIATELY.
--- NOTE | 2019-10-14 17:54 | NUR ---
Therapeutic and supportive visit this evening. Pt resting in bed upon arrival. Pt reports her pain is becoming better managed and appetite has slightly improved today. Pt reports refusing her scheduled pain medications earlier today. Educated on the importance of continuing with scheduled medications even when feeling better in order to stay on top of the pain. Discussed concerns and difficulties with complying with recommendations. Discussed the cascase effect that can occur and the importance of discovering motivation to push herself to improve. Discussed the potential consequences and implications of not working to improve. Pt tearful at times and reports feeling depressed. Discussed considering starting a antidepressant medication while here in the hospital and couseling once discharged. Pt tearful at times and this RN offered emotional support. Listened as Pt reports feeling traumatized from caring for her father before he . Continued therapeutic listening and vailidated her fears and concers. Pt reports 7/10 pain. Pt expresses appreciation of visit. Spoke with Pt's bedside AR Matthew, discussed case, and relayed Pt's pain. Palliative Care will remain available.
[2019-10-15 04:21] LABS: Hematocrit 26.7 % (33.0-51.0); Hemoglobin 8.2 g/dL (11.5-16.0); Mean Corpuscular HGB 29.9 pg (26.0-34.0); Mean Corpuscular HGB Conc 30.7 g/dL (31.5-36.5); Mean Corpuscular Volume 97 fL (80-100); Mean Platelet Volume 10.5 fL (9.1-12.4); NRBC ABSOLUTE 0.16 K/mm3 (0.00-0.02); NRBC Auto 1.1 /100 WBC (0.0-0.2); Platelet Count 718 K/mm3 (150-400); RDW Coefficient Variation 16.8 % (11.7-14.2); RDW Standard Deviation 55.2 fL (35.1-46.3); Red Blood Cell Count 2.74 M/mm3 (3.80-5.20); White Blood Cell Count 14.62 K/mm3 (4.00-11.30)
[2019-10-15 04:44] LABS: Anion Gap 3 mmol/L (6-16); Blood Urea Nitrogen 8 mg/dL (8-24); Bun/Creatinine Ratio 16.9 (12.0-20.0); CO2, Blood 30 mmol/L (21-32); Calcium, Blood 7.4 mg/dL (8.5-10.1); Chloride, Blood 102 mmol/L (98-108); Creatinine, Blood 0.47 mg/dL (0.40-1.00); Glomerular Filtration Rate >60 (60-); Glucose, Blood 105 mg/dL (70-99); Potassium, Blood 3.8 mmol/L (3.5-5.5); Sodium, Blood 135 mmol/L (136-145)
--- NOTE | 2019-10-15 05:47 | NUR ---
SHIFT SUMMARY PT PLEASANT AND COOPERATIVE. ALLOWED AND ASSISTED WITH Q2 REPOSITIONING. MEDICATED Q4 WITH 1MG IV DILAUDID, 0.5 PO ATIVAN, AND IV ZOFRAN. REPORTS GOOD CONTROL, REFUSES PO SCHEDULED WILY. WOUND VAC TO MIDLINE C/D/I WITH BLACK FOAM COMPRESSED; DRAINING RED FLUID. URECIL VAC TO RQ IN PLACE DRAINING 40ML SS. POOR PO INTAKE, ENCOURAGE/EDU TO INCREASED INTAKE. Q2 REPOSITIONING. HERNÁNDEZ IN PLACE, DRAINING YELLOW URINE WITH SOME VISIBLE SEDIMENT IN TUBING. CPN INFUSING PER ORDERS. ABX AND IVF INFUSED PER ORDERS. OSTOMY IN PLACE, PRODUCING LIQUID BROWN STOOL. PT CURRENTLY RESTING IN BED WITH CALL LIGHT IN REACH. WILL CONT TO MONITOR AND GIVE REPORT TO ONCOMING RN.
[2019-10-15 05:49] LABS: BAND PERCENT MAN 9 % (0-8); BASOPHILS PERCENT MAN 0 % (0-2); EOSINOPHILS ABSOLUTE MAN 0.14 K/mm3 (0.00-0.68); EOSINOPHILS PERCENT MAN 1 % (0-6); LYMPHOCYTES ABSOLUTE MAN 1.31 K/mm3 (0.84-5.20); LYMPHOCYTES PERCENT MAN 9 % (21-46); METAMYELOCYTE ABSOLUTE MAN 0.29 K/mm3 (0.00-0.00); METAMYELOCYTE PERCENT MAN 2 % (0-0); MONOCYTES ABSOLUTE MAN 1.16 K/mm3 (0.16-1.47); MONOCYTES PERCENT MAN 8 % (4-13); MYELOCYTE ABSOLUTE MAN 0.14 K/mm3 (0.00-0.00); MYELOCYTE PERCENT MAN 1 % (0-0); NEUTROPHILS ABSOLUTE MAN 11.54 K/mm3 (1.96-9.15); SEG NEUTROPHILS PERCENT MAN 70 % (41-73); TOTAL CELLS COUNTED 100
--- NOTE | 2019-10-15 13:22 | NUR ---
UP TO WHEELCHAIR PT STOOD AT SIDE OF BED AND TRANSFERRED TO WHEELCHAIR. CHANGED MEPILEX TO BUTTOCKS. CALL LIGHT IN REACH. SIGNIFICANT OTHER AT BEDSIDE.
--- NOTE | 2019-10-15 13:56 | NUR ---
THERAPY SEEING PT.
--- NOTE | 2019-10-15 18:45 | NUR ---
SUMMARY NO ACUTE CHANGES T/O SHIFT. MEDICATED PER ORDERS FOR PAIN, ANXIETY AND NAUSEA T/O DAY. PT SAT UP IN WC AND WORKED W/THERAPY. STILL REFUSING TRAYS BUT TAKING SIPS OF CLEARS. PT C/O OF ITCHING, NOTICED REDNESS TO SIDE AND BACK. PT HAS LOTION AT BEDSIDE. CHANGED WOUND VAC W/KRYSTYNA Dumont RN. DR JACKSON PROVIDED TELEPHONE NURSE NOTIFY ORDER TO CHANGE W/O HIM AT BEDSIDE. NEXT WOUND VAC CHANGE DUE ON OCTOBER 16. CALL LIGHT IN REACH.
[2019-10-16 04:02] LABS: BASOPHILS ABSOLUTE AUTO 0.04 K/mm3 (0.00-0.23); BASOPHILS PERCENT AUTO 0 % (0-2); Hematocrit 24.6 % (33.0-51.0); Hemoglobin 7.6 g/dL (11.5-16.0); LYMPHOCYTES ABSOLUTE AUTO 1.27 K/mm3 (0.84-5.20); LYMPHOCYTES PERCENT AUTO 8 % (21-46); MONOCYTES ABSOLUTE AUTO 0.79 K/mm3 (0.16-1.47); MONOCYTES PERCENT AUTO 5 % (4-13); Mean Corpuscular HGB 29.8 pg (26.0-34.0); Mean Corpuscular HGB Conc 30.9 g/dL (31.5-36.5); Mean Corpuscular Volume 97 fL (80-100); Mean Platelet Volume 10.4 fL (9.1-12.4); NRBC ABSOLUTE 0.08 K/mm3 (0.00-0.02); NRBC Auto 0.5 /100 WBC (0.0-0.2); Platelet Count 729 K/mm3 (150-400); RDW Coefficient Variation 16.6 % (11.7-14.2); Red Blood Cell Count 2.55 M/mm3 (3.80-5.20)
[2019-10-16 04:04] LABS: EOSINOPHILS ABSOLUTE AUTO 0.52 K/mm3 (0.00-0.68); EOSINOPHILS PERCENT AUTO 3 % (0-6); IMMATURE GRAN ABSOLUTE AUTO 0.31 K/mm3 (0.00-0.10); IMMATURE GRAN PERCENT AUTO 2 % (0-1); NEUTROPHILS ABSOLUTE AUTO 13.07 K/mm3 (1.96-9.15); NEUTROPHILS PERCENT AUTO 82 % (41-73)
[2019-10-16 04:23] LABS: BAND PERCENT MAN 1 % (0-8); BASOPHILS PERCENT MAN 0 % (0-2); EOSINOPHILS ABSOLUTE MAN 0.64 K/mm3 (0.00-0.68); EOSINOPHILS PERCENT MAN 4 % (0-6); LYMPHOCYTES ABSOLUTE MAN 0.32 K/mm3 (0.84-5.20); LYMPHOCYTES PERCENT MAN 2 % (21-46); MONOCYTES PERCENT MAN 5 % (4-13); NEUTROPHILS ABSOLUTE MAN 14.24 K/mm3 (1.96-9.15); SEG NEUTROPHILS PERCENT MAN 88 % (41-73); TOTAL CELLS COUNTED 100
[2019-10-16 04:24] LABS: Anion Gap 4 mmol/L (6-16); Blood Urea Nitrogen 10 mg/dL (8-24); Bun/Creatinine Ratio 26.1 (12.0-20.0); CO2, Blood 29 mmol/L (21-32); Calcium, Blood 7.4 mg/dL (8.5-10.1); Chloride, Blood 103 mmol/L (98-108); Creatinine, Blood 0.38 mg/dL (0.40-1.00); Glomerular Filtration Rate >60 (60-); Glucose, Blood 118 mg/dL (70-99); Potassium, Blood 3.8 mmol/L (3.5-5.5); Sodium, Blood 136 mmol/L (136-145)
--- NOTE | 2019-10-16 07:27 | NUR ---
SUMMARY PT C/O FEELING IF HERNÁNDEZ NOT EMPTYING. BLADDER SCAN DONE PER SHOP DIRECTOR. NOTED EMPTYING.DISCUSSED THIS WITH PT.NOTED PT DOES NOT HAVE STAT LOCK. WILL PLACE ONE. ENC PT TO D/C HERNÁNDEZ TODAY? PT VERB MIGHT DEPENDING ON HOW WELL SHE GETS UP AND AROUND.PT CONTINUES TAKING ATIVAN,DILAUD PO,DILAUDID IV AND ZOFRAN TO CONTROL NAUSEA,ANXIET AND PAIN TO LEVEL 1.
--- NOTE | 2019-10-16 11:25 | NUR ---
DR JACKSON/WOUND VAC SHOWED DR JACKSON PHOTOS OF ABOMINAL WOUND. STATED WOULD OBSERVE WOUND VAC CHANGE TOMORROW.
--- NOTE | 2019-10-16 11:25 | NUR ---
BLISTERS IN GROIN SHOWED DR MOBLEY. ORDERS OBTAINED.
--- NOTE | 2019-10-16 17:17 | NUR ---
SUMMARY PT DECLINED WORKING W/THERAPY TODAY. MEDICATED PER ORDERS T/O SHIFT FOR PAIN, ANXIETY AND NAUSEA. PT SIPPING WATER AND COLD APPLE CIDER. DECLINING MEAL TRAYS. 1 OF 2 UNITS PRBCS COMPLETE. SCHEDULED ABX RUNNING AT THIS TIME. PLAN TO START 2ND UNIT OF PRBCS AFTER CURRENT ABX COMPLETE. WOUND VAC TO ABDOMEN COMPRESSED. PERCUTANEOUS DRAIN TO R SIDE DRAINING SANGUINOUS FLUID. OSTOMY PUTTING OUT LIGHT BROWN LIQUID. CALL LIGHT IN REACH.
--- NOTE | 2019-10-16 18:21 | NUR ---
STARTED 2ND UNIT PRBCS. PT DECLINED TURNING FOR REPOSITIONING. S.O. AT BEDSIDE. S.O. BROUGHT IN SUSHI AND POPSICLE FOR PT; PT STATES WILL EAT LATER. PLACED LABEL AND PUT IN REFIGERATOR.
--- NOTE | 2019-10-16 20:15 | NUR ---
FOLLOW UP [facility] ORDERS REINPUT INTO ORDERS FOR AFTER 2ND UNIT OF BLOOD DONE TRANSFUSING.
[2019-10-16 22:06] LABS: BASOPHILS ABSOLUTE AUTO 0.07 K/mm3 (0.00-0.23); BASOPHILS PERCENT AUTO 1 % (0-2); EOSINOPHILS ABSOLUTE AUTO 0.29 K/mm3 (0.00-0.68); EOSINOPHILS PERCENT AUTO 2 % (0-6); Hemoglobin 11.4 g/dL (11.5-16.0); IMMATURE GRAN ABSOLUTE AUTO 0.19 K/mm3 (0.00-0.10); IMMATURE GRAN PERCENT AUTO 1 % (0-1); LYMPHOCYTES ABSOLUTE AUTO 1.14 K/mm3 (0.84-5.20); LYMPHOCYTES PERCENT AUTO 9 % (21-46); MONOCYTES ABSOLUTE AUTO 0.74 K/mm3 (0.16-1.47); MONOCYTES PERCENT AUTO 6 % (4-13); Mean Corpuscular HGB 30.4 pg (26.0-34.0); Mean Corpuscular HGB Conc 32.6 g/dL (31.5-36.5); Mean Platelet Volume 9.8 fL (9.1-12.4); NEUTROPHILS ABSOLUTE AUTO 10.78 K/mm3 (1.96-9.15); NEUTROPHILS PERCENT AUTO 82 % (41-73); NRBC ABSOLUTE 0.05 K/mm3 (0.00-0.02); NRBC Auto 0.4 /100 WBC (0.0-0.2); Platelet Count 704 K/mm3 (150-400); RDW Coefficient Variation 15.4 % (11.7-14.2); RDW Standard Deviation 48.5 fL (35.1-46.3); Red Blood Cell Count 3.75 M/mm3 (3.80-5.20); White Blood Cell Count 13.21 K/mm3 (4.00-11.30)
[2019-10-16 22:07] LABS: Mean Corpuscular Volume 93 fL (80-100)
[2019-10-17 04:48] LABS: BASOPHILS ABSOLUTE AUTO 0.06 K/mm3 (0.00-0.23); BASOPHILS PERCENT AUTO 0 % (0-2); EOSINOPHILS ABSOLUTE AUTO 0.29 K/mm3 (0.00-0.68); EOSINOPHILS PERCENT AUTO 2 % (0-6); Hematocrit 34.4 % (33.0-51.0); Hemoglobin 11.1 g/dL (11.5-16.0); IMMATURE GRAN ABSOLUTE AUTO 0.19 K/mm3 (0.00-0.10); IMMATURE GRAN PERCENT AUTO 1 % (0-1); LYMPHOCYTES ABSOLUTE AUTO 1.07 K/mm3 (0.84-5.20); LYMPHOCYTES PERCENT AUTO 8 % (21-46); MONOCYTES ABSOLUTE AUTO 0.89 K/mm3 (0.16-1.47); MONOCYTES PERCENT AUTO 6 % (4-13); Mean Corpuscular HGB 30.2 pg (26.0-34.0); Mean Corpuscular HGB Conc 32.3 g/dL (31.5-36.5); Mean Corpuscular Volume 94 fL (80-100); Mean Platelet Volume 9.9 fL (9.1-12.4); NEUTROPHILS ABSOLUTE AUTO 11.65 K/mm3 (1.96-9.15); NEUTROPHILS PERCENT AUTO 82 % (41-73); NRBC ABSOLUTE 0.04 K/mm3 (0.00-0.02); NRBC Auto 0.3 /100 WBC (0.0-0.2); Platelet Count 735 K/mm3 (150-400); RDW Coefficient Variation 15.9 % (11.7-14.2); RDW Standard Deviation 50.9 fL (35.1-46.3); Red Blood Cell Count 3.68 M/mm3 (3.80-5.20); White Blood Cell Count 14.15 K/mm3 (4.00-11.30)
[2019-10-17 05:04] LABS: Anion Gap 5 mmol/L (6-16); Blood Urea Nitrogen 11 mg/dL (8-24); Bun/Creatinine Ratio 24.7 (12.0-20.0); CO2, Blood 27 mmol/L (21-32); Calcium, Blood 7.2 mg/dL (8.5-10.1); Chloride, Blood 105 mmol/L (98-108); Creatinine, Blood 0.45 mg/dL (0.40-1.00); Glomerular Filtration Rate >60 (60-); Glucose, Blood 109 mg/dL (70-99); Potassium, Blood 3.5 mmol/L (3.5-5.5); Sodium, Blood 137 mmol/L (136-145)
--- NOTE | 2019-10-17 06:22 | NUR ---
SHIFT SUMMARY AA0X4. PT REPOSITIONING FREQUENTLY IN BED, REDNESS NOTED ON RIGHT HIP, PT REPOSITIONED OFF THAT HIP. HERNÁNDEZ PATENT AND DRAINING, REQUIRED FLUSHING TO CLEAR CLOGGED TUBING, SMALL RED CLOTS SEEN IN TUBE. OSTOMY PINK AND BEEFY LIQUID BROWN STOOL, SOME FLATUS. WOUND VAC COMPRESSED AND SUCTION ON FOR MOST OF SHIFT. DRAIN PATENT AND DRAINING DURING SHIFT. LARGE AMOUNT OF RUST COLORED LIQUID IN BOTTOM OF WOUND VAC/DRAIN DRESSINGS AT END OF SHIFT. REQUIRED BED CHANGE AND REINFORCING OF THE WOUND VAC DRESSING TO MAINTAIN A SEAL. UNSURE IF FROM DRAIN OR WOUND VAC. PT MEDICATED FOR PAIN PER EMAR. STATED SHE WAS ABLE TO SLEEP SOME TODAY. PLAN IS FOR DRESSING CHANGE WITH SURGEON AT BEDSIDE TODAY.
--- NOTE | 2019-10-17 10:48 | NUR ---
pt working with phsical therapy earlier dr cardenastrate by to see pt trapeze placed to bed also removed calles cath
--- NOTE | 2019-10-17 12:30 | NUR ---
pt req pain meds given calles removed at 1132 today pt also wanted to wear attends just in case
--- NOTE | 2019-10-17 14:50 | NUR ---
asked pt if she needs to void yet stated no
--- NOTE | 2019-10-17 16:05 | NUR ---
PT STATED THAT SHE NEEDS A ATIVAN IF STILL AVAILABLE PAIN IS [address] JACKSON TO ROUND
--- NOTE | 2019-10-17 18:30 | NUR ---
PT VOIDED 350 ML UP TO BSC PT MOI WELL
[2019-10-18 05:32] LABS: BASOPHILS ABSOLUTE AUTO 0.06 K/mm3 (0.00-0.23); BASOPHILS PERCENT AUTO 1 % (0-2); Hematocrit 33.9 % (33.0-51.0); Hemoglobin 10.7 g/dL (11.5-16.0); Mean Corpuscular HGB 29.8 pg (26.0-34.0); Mean Corpuscular HGB Conc 31.6 g/dL (31.5-36.5); Mean Corpuscular Volume 94 fL (80-100); Mean Platelet Volume 9.9 fL (9.1-12.4); NRBC ABSOLUTE 0.04 K/mm3 (0.00-0.02); NRBC Auto 0.4 /100 WBC (0.0-0.2); Platelet Count 761 K/mm3 (150-400); RDW Coefficient Variation 16.1 % (11.7-14.2); RDW Standard Deviation 52.1 fL (35.1-46.3); Red Blood Cell Count 3.59 M/mm3 (3.80-5.20); White Blood Cell Count 9.53 K/mm3 (4.00-11.30)
[2019-10-18 05:33] LABS: EOSINOPHILS ABSOLUTE AUTO 0.21 K/mm3 (0.00-0.68); EOSINOPHILS PERCENT AUTO 2 % (0-6); IMMATURE GRAN ABSOLUTE AUTO 0.14 K/mm3 (0.00-0.10); IMMATURE GRAN PERCENT AUTO 2 % (0-1); LYMPHOCYTES ABSOLUTE AUTO 1.15 K/mm3 (0.84-5.20); LYMPHOCYTES PERCENT AUTO 12 % (21-46); MONOCYTES ABSOLUTE AUTO 0.67 K/mm3 (0.16-1.47); MONOCYTES PERCENT AUTO 7 % (4-13); NEUTROPHILS PERCENT AUTO 77 % (41-73)
[2019-10-18 06:02] LABS: Anion Gap 5 mmol/L (6-16); Blood Urea Nitrogen 8 mg/dL (8-24); Bun/Creatinine Ratio 20.9 (12.0-20.0); CO2, Blood 27 mmol/L (21-32); Calcium, Blood 7.4 mg/dL (8.5-10.1); Chloride, Blood 106 mmol/L (98-108); Creatinine, Blood 0.38 mg/dL (0.40-1.00); Glomerular Filtration Rate >60 (60-); Glucose, Blood 139 mg/dL (70-99); Potassium, Blood 3.3 mmol/L (3.5-5.5); Sodium, Blood 138 mmol/L (136-145)
--- NOTE | 2019-10-18 06:26 | NUR ---
SHIFT SUMMARY: RAHEEM IS A&OX4. SHE IS A ONE PERSON TRANSFER TO THE BEDSIDE COMMODE. ADEQUATE URINE OUTPUT. VSS, NO ACUTE EVENTS OVERNIGHT. DR. JACKSON TO CHANGE WOUND VAC TODAY PER DAY SHIFT CHARGE. NO OUTPUT THROUGH STOMA THIS SHIFT. SHE REPORTS ADEQUATE PAIN CONTROL WITH ORAL AND IV DILAUDID. MEPILEX CHANGED TO HEELS, NO OPEN ULCERS VISUALIZED. MEPLIEX PLACE ON BILATERAL ELBOWS FOR REDNESS. URESIL DRAIN PATENT. SHE IS ALLOWING TURNING AND REPOSITIONIONG. SHE USES HER CALL LIGHT APPROPRIATELY. WILL REPORT TO DAY SHIFT RN.
--- NOTE | 2019-10-18 19:27 | NUR ---
SHIFT SUMMARY PT A&OX4, VSS, PAIN MANAGED WITH 1 MG DILAUDID; ZOFRAN GIVEN AT SAME TIME PER REQ PT FOR N&V. VERY LOW PO INTAKE; EDU AND ENC PT. STAND PIVOT TO BSC. VOIDING WELL. WOUND VAC REMOVED BY SURGEON, REPLACED WITH WET/DRY/ABD PAD, GREEN DC; STOMA BEEFY RED, PRODUCING NOTHING. REPORT TO LEX JOYNER.
[2019-10-19 05:05] LABS: BASOPHILS ABSOLUTE AUTO 0.05 K/mm3 (0.00-0.23); BASOPHILS PERCENT AUTO 1 % (0-2); EOSINOPHILS ABSOLUTE AUTO 0.22 K/mm3 (0.00-0.68); EOSINOPHILS PERCENT AUTO 3 % (0-6); Hematocrit 34.2 % (33.0-51.0); Mean Corpuscular HGB 30.6 pg (26.0-34.0); Mean Corpuscular HGB Conc 32.2 g/dL (31.5-36.5); Mean Corpuscular Volume 95 fL (80-100); Mean Platelet Volume 9.7 fL (9.1-12.4); Platelet Count 790 K/mm3 (150-400); RDW Coefficient Variation 16.1 % (11.7-14.2); RDW Standard Deviation 53.7 fL (35.1-46.3); Red Blood Cell Count 3.59 M/mm3 (3.80-5.20); White Blood Cell Count 8.09 K/mm3 (4.00-11.30)
[2019-10-19 05:09] LABS: IMMATURE GRAN ABSOLUTE AUTO 0.12 K/mm3 (0.00-0.10); IMMATURE GRAN PERCENT AUTO 2 % (0-1); LYMPHOCYTES ABSOLUTE AUTO 1.51 K/mm3 (0.84-5.20); LYMPHOCYTES PERCENT AUTO 19 % (21-46); MONOCYTES ABSOLUTE AUTO 0.67 K/mm3 (0.16-1.47); MONOCYTES PERCENT AUTO 8 % (4-13); NEUTROPHILS ABSOLUTE AUTO 5.52 K/mm3 (1.96-9.15); NEUTROPHILS PERCENT AUTO 68 % (41-73)
[2019-10-19 05:20] LABS: Anion Gap 4 mmol/L (6-16); Blood Urea Nitrogen 6 mg/dL (8-24); Bun/Creatinine Ratio 16.9 (12.0-20.0); CO2, Blood 27 mmol/L (21-32); Calcium, Blood 7.4 mg/dL (8.5-10.1); Chloride, Blood 106 mmol/L (98-108); Creatinine, Blood 0.36 mg/dL (0.40-1.00); Glomerular Filtration Rate >60 (60-); Glucose, Blood 144 mg/dL (70-99); Potassium, Blood 3.3 mmol/L (3.5-5.5); Sodium, Blood 137 mmol/L (136-145)
--- NOTE | 2019-10-19 05:36 | NUR ---
SHIFT SUMMARY: RAHEEM IS A&OX4. VSS, NO ACUTE EVENTS OVERNIGHT. SHE IS TAKING DILAUDID, ZOFRAN, AND ATIVAN. WET TO DRY DRESSING ON ABDOMEN CLEAN AND INTACT. TPN INFUSING THROUGH MEDIPORT. SHE IS A ONE PERSON ASSIST TO THE BEDSIDE COMMODE, NO DIFFICULTIES URINATING. SHE HAS BEEN TEARFUL INTERMITTENTLY THIS SHIFT, FEARFUL OF HAVING TO HAVE SURGERY AGAIN TO REPAIR HER ABDOMEN. SHE IS QUITE CONCERNED THAT THERE IS NO OUTPUT THROUGH HER STOMA. URESIL DRAIN PATENT. SHE USES THE CALL LIGHT APPROPRIATELY. SHE IS ABLE TO MAKE HER NEEDS KNOWN. WILL REPORT TO DAY SHIFT RN.
--- NOTE | 2019-10-19 16:42 | NUR ---
SHIFT SUMMARY PT A&OX4, VSS, ABD WOUND WET/DRY DRESSING CHANGED - Q SHIFT; STOMA NO OUTPUT. PAIN MANAGED WITH FENT PATCH ON CHEST, DILAUDID IV & PO AND ATIVAN FOR ANXIETY. LOW PO INTAKE; ZOFRAN GIVEN X3. CT PLANNED FOR 1899; PT SIPPING CONTRAST/IV CONTRAST OKAY'D BY SURGEON; IMAGING AWARE. AMB W/MOD ASSIST IN ROOM/TO BSC. MEDIPORT INFUSING TPN @ 75 MLS/HR. VOIDING WELL. WILL REPORT TO ONCOMING NOC RN.
[2019-10-20 06:54] LABS: BASOPHILS ABSOLUTE AUTO 0.06 K/mm3 (0.00-0.23); BASOPHILS PERCENT AUTO 1 % (0-2); EOSINOPHILS ABSOLUTE AUTO 0.11 K/mm3 (0.00-0.68); EOSINOPHILS PERCENT AUTO 1 % (0-6); Hematocrit 34.6 % (33.0-51.0); IMMATURE GRAN ABSOLUTE AUTO 0.19 K/mm3 (0.00-0.10); IMMATURE GRAN PERCENT AUTO 2 % (0-1); LYMPHOCYTES ABSOLUTE AUTO 1.43 K/mm3 (0.84-5.20); LYMPHOCYTES PERCENT AUTO 14 % (21-46); MONOCYTES PERCENT AUTO 9 % (4-13); Mean Corpuscular HGB 30.4 pg (26.0-34.0); Mean Corpuscular HGB Conc 31.8 g/dL (31.5-36.5); Mean Corpuscular Volume 96 fL (80-100); Mean Platelet Volume 9.5 fL (9.1-12.4); NEUTROPHILS ABSOLUTE AUTO 7.43 K/mm3 (1.96-9.15); NEUTROPHILS PERCENT AUTO 73 % (41-73); NRBC ABSOLUTE 0.03 K/mm3 (0.00-0.02); NRBC Auto 0.3 /100 WBC (0.0-0.2); Platelet Count 787 K/mm3 (150-400); RDW Coefficient Variation 16.2 % (11.7-14.2); RDW Standard Deviation 53.7 fL (35.1-46.3); Red Blood Cell Count 3.62 M/mm3 (3.80-5.20); White Blood Cell Count 10.12 K/mm3 (4.00-11.30)
[2019-10-20 07:09] LABS: Anion Gap 4 mmol/L (6-16); Blood Urea Nitrogen 7 mg/dL (8-24); Bun/Creatinine Ratio 20.2 (12.0-20.0); CO2, Blood 26 mmol/L (21-32); Calcium, Blood 7.3 mg/dL (8.5-10.1); Chloride, Blood 106 mmol/L (98-108); Creatinine, Blood 0.35 mg/dL (0.40-1.00); Glomerular Filtration Rate >60 (60-); Glucose, Blood 181 mg/dL (70-99); Sodium, Blood 136 mmol/L (136-145)
--- NOTE | 2019-10-20 08:26 | NUR ---
SUMMARY PT WENT FOR CT SCAN AT BEGINNING OF SHIFT.HOWEER, SHE WAS UNABLE TO DRINK ALL OF THE CONTRAST. JOSEPH RN REPORTED JUST NEEDING TO TRANSFER PT TO [facility] AND SHE WAS READY FOR TRANSFERT TO CT.I RECIEVED MULTIP[LE CALLS PER VOCERA LOOKING FO NEW IV ACCESS THEY STATED THEY WERE UNABLE TO USE PTS MEDIPORT FOR CONTRAST. I MADE MUTIPLE CALLS AND ALL UNITS THAT WOULD POSSIBLY BE ABLE TO PLACE AN IV USING SITE RITE, WERE HEAVILY LOADED WITH WORK AND UNABLE TO FIND TIME TO TRY. PT WAS RETURNED TO ROOM WITHOUT CT. AFTER PT ARRIVED TO ROOM, SHE DID BEGIN PASSING STOOL AND FLATUS VIA OSTOMY.I NOTIFIED DR JACKSON UNABLE TO COMPLETE CT AND REASON. STATED NO SALES ON CT COULD DO TEST 10/20/19 HOWEVER, PT REFUSING CT AT THIS TIME SHE HAS BEGUN PASSING LIQ STOOL AND FLATUS PER OSTOMY AND WISHES TO SPEAK WITH DOCTOR FIRST.JOSEPH RN JESÚS AGREES TO FOLLOW UP.PT HAS HAD DECREASE IN NEED FOR PAIN MEDS TONIGHT AND HAS BEEN ABLE TO SLEEP. ALSO ABLE TO GET OOB FOR VOID WITH ASSIST.
--- NOTE | 2019-10-20 15:31 | NUR ---
CHANGED DRESSING TO PT'S ABDOMEN PER ORDERS TOLERATED WELL.
--- NOTE | 2019-10-20 18:04 | NUR ---
SUMMARY NO ACUTE CHANGES T/O SHIFT. PT DECLINED MEAL TRAYS BUT HAS BEEN SIPPING FLUIDS T/O SHIFT. UP TO [facility] W[facility]1 PERSON SBA. DECLINED REPOSITIONING FROM SIDE TO SIDE. MEDICATED PER ORDERS FOR PAIN AND NAUSEA. CHANGED DRESSING TO ABDOMEN PER ORDERS. TPN RUNNING PER ORDERS. CALL LIGHT IN REACH.
[2019-10-21 04:12] LABS: BASOPHILS ABSOLUTE AUTO 0.04 K/mm3 (0.00-0.23); BASOPHILS PERCENT AUTO 0 % (0-2); EOSINOPHILS ABSOLUTE AUTO 0.26 K/mm3 (0.00-0.68); EOSINOPHILS PERCENT AUTO 3 % (0-6); Hematocrit 35.3 % (33.0-51.0); Hemoglobin 11.3 g/dL (11.5-16.0); IMMATURE GRAN ABSOLUTE AUTO 0.15 K/mm3 (0.00-0.10); IMMATURE GRAN PERCENT AUTO 2 % (0-1); LYMPHOCYTES ABSOLUTE AUTO 1.49 K/mm3 (0.84-5.20); LYMPHOCYTES PERCENT AUTO 16 % (21-46); MONOCYTES ABSOLUTE AUTO 0.95 K/mm3 (0.16-1.47); MONOCYTES PERCENT AUTO 10 % (4-13); Mean Corpuscular HGB 30.5 pg (26.0-34.0); Mean Corpuscular Volume 95 fL (80-100); Mean Platelet Volume 9.5 fL (9.1-12.4); NEUTROPHILS ABSOLUTE AUTO 6.56 K/mm3 (1.96-9.15); NEUTROPHILS PERCENT AUTO 69 % (41-73); NRBC ABSOLUTE 0.03 K/mm3 (0.00-0.02); NRBC Auto 0.3 /100 WBC (0.0-0.2); Platelet Count 845 K/mm3 (150-400); RDW Coefficient Variation 16.4 % (11.7-14.2); RDW Standard Deviation 55.4 fL (35.1-46.3); Red Blood Cell Count 3.71 M/mm3 (3.80-5.20); White Blood Cell Count 9.45 K/mm3 (4.00-11.30)
[2019-10-21 04:28] LABS: Anion Gap 4 mmol/L (6-16); Blood Urea Nitrogen 6 mg/dL (8-24); Bun/Creatinine Ratio 16.8 (12.0-20.0); CO2, Blood 27 mmol/L (21-32); Calcium, Blood 7.5 mg/dL (8.5-10.1); Chloride, Blood 106 mmol/L (98-108); Creatinine, Blood 0.36 mg/dL (0.40-1.00); Glomerular Filtration Rate >60 (60-); Glucose, Blood 149 mg/dL (70-99); Potassium, Blood 4.1 mmol/L (3.5-5.5); Sodium, Blood 137 mmol/L (136-145)
--- NOTE | 2019-10-21 06:22 | NUR ---
SUMMARY WET TO DRY DSNG CHANGED. PT REPORTS FEELING BETTER.
--- NOTE | 2019-10-21 10:58 | NUR ---
CALCIUM PT INITIALLY REQUESTED CALCIUM BE CUT UP IN MULTIPLE SMALL PIECES TO TAKE W/JUICE AND LEFT AT BEDSIDE TO TAKE SLOWLY. OF THIS TIME, PT HAS NOT TAKEN AND REQUESTED CALCIUM BE CRUSHED AND MIXED IN APPLE JUICE. GLASS AT BEDSIDE, PT STATED WOULD TAKE WHEN "GAS BUBBLE" PASSES.
--- NOTE | 2019-10-21 17:40 | NUR ---
SUMMARY NO ACUTE CHANGES T/O SHIFT. CHANGED DRESSING TO ABDOMEN THIS EVENING PER ORDERS. PT TOLERATED WELL. ALLOWED STAFF TO REPOSITION OFF AND ON DURING SHIFT. PLACED NEW MEPILEX DRESSING TO BUTTOCKS/COCCYX THIS SHIFT. PT UP TO BSC MULTIPLE TIMES. DECLINED SITTING UP. CONTINUES TO REFUSE MEAL TRAYS. SIPPING FLUIDS. MEDICATED T/O DAY PER ORDERS FOR PAIN, N/V, ANXIETY. CALL LIGHT IN REACH.
[2019-10-22 05:42] LABS: BASOPHILS ABSOLUTE AUTO 0.08 K/mm3 (0.00-0.23); BASOPHILS PERCENT AUTO 1 % (0-2); EOSINOPHILS ABSOLUTE AUTO 0.26 K/mm3 (0.00-0.68); EOSINOPHILS PERCENT AUTO 2 % (0-6); Hematocrit 36.9 % (33.0-51.0); Hemoglobin 11.6 g/dL (11.5-16.0); IMMATURE GRAN ABSOLUTE AUTO 0.15 K/mm3 (0.00-0.10); IMMATURE GRAN PERCENT AUTO 1 % (0-1); LYMPHOCYTES ABSOLUTE AUTO 1.41 K/mm3 (0.84-5.20); LYMPHOCYTES PERCENT AUTO 13 % (21-46); MONOCYTES ABSOLUTE AUTO 1.19 K/mm3 (0.16-1.47); MONOCYTES PERCENT AUTO 11 % (4-13); Mean Corpuscular HGB 30.3 pg (26.0-34.0); Mean Corpuscular HGB Conc 31.4 g/dL (31.5-36.5); Mean Corpuscular Volume 96 fL (80-100); Mean Platelet Volume 9.2 fL (9.1-12.4); NEUTROPHILS ABSOLUTE AUTO 8.17 K/mm3 (1.96-9.15); NEUTROPHILS PERCENT AUTO 73 % (41-73); Platelet Count 801 K/mm3 (150-400); RDW Coefficient Variation 16.6 % (11.7-14.2); RDW Standard Deviation 55.7 fL (35.1-46.3); Red Blood Cell Count 3.83 M/mm3 (3.80-5.20); White Blood Cell Count 11.26 K/mm3 (4.00-11.30)
[2019-10-22 06:09] LABS: Alanine Aminotransfer (ALT/SGP 19 U/L (12-78); Albumin, Blood 1.3 g/dL (3.4-5.0); Albumin/Globulin Ratio 0.3 (0.8-1.8); Alk Phos 324 U/L (50-136); Anion Gap 6 mmol/L (6-16); Aspartate Aminotrans (AST/SGOT 18 U/L (12-37); Bilirubin, Total 0.4 mg/dL (0.1-1.0); Blood Urea Nitrogen 7 mg/dL (8-24); Bun/Creatinine Ratio 21.5 (12.0-20.0); CO2, Blood 25 mmol/L (21-32); Calcium, Blood 7.6 mg/dL (8.5-10.1); Chloride, Blood 104 mmol/L (98-108); Creatinine, Blood 0.33 mg/dL (0.40-1.00); Globulin, Blood 5.1 g/dL (2.2-4.0); Glomerular Filtration Rate >60 (60-); Glucose, Blood 120 mg/dL (70-99); Sodium, Blood 135 mmol/L (136-145); Total Protein, Blood 6.4 g/dL (6.4-8.2)
--- NOTE | 2019-10-22 06:22 | NUR ---
SHIFT SUMMARY PT A/OX4 WITH VSS. ABD DRESSING CHANGED 3X DURING SHIFT D/T INCREASED DRAINAGE. THE SS DRAINAGE HAS A BROWN COLOR WITH A HINT OF GREEN. DISCUSSED INCREASED DRAINAGE AND COLOR WITH DR. JACKSON, PLAN FOR WOUND VAC WITH WHITE FOAM. PT STATES SHE PLACED HER USED SOCK ONTOP OF THE DRESSING TO SLOW THE DRAINING; EDUCATED PATIENT ON WOUND CARE AND INFECTION PREVENTION. PT VERBALIZED UNDERSTANDING. UP TO BSC WITH MIN ASSIST. MEDICATED 2X FOR PAIN PER EMAR. CPN INFUSING PER ORDERS. CURRENTLY RESTING IN BED WITH CALL LIGHT IN REACH. WILL CONT TO MONITOR AND GIVE REPORT TO ONCOMING RN.
[2019-10-22 12:29] LABS: Source, Urine Clean Catch
[2019-10-22 12:54] LABS: Appearance, Urine Hazy (Clear); Bilirubin, Urine Neg (Neg); Blood, Urine Neg (Neg); Color, Urine Yellow (P-Yellow); Glucose Qualitative, Urine Neg (Neg); Ketones, Urine Neg (Neg); Leukocyte Esterase, Urine 1+ (Neg); Nitrite, Urine Neg (Neg); Protein, Urine 1+ (Neg); Urobilinogen, Urine NORM (Normal)
[2019-10-22 13:09] LABS: Amorphous Heavy (0-Heavy); Bacteria Few /hpf; Red Blood Cells, Urine 0-2 /hpf (0-2); Squamous Epithelial Cells Few /hpf (Few)
--- NOTE | 2019-10-22 14:50 | NUR ---
Pal Care Visit Pt sitting up in bed, smiling and visiting with JAVIER Meza. We reviewed her progress over the past week. She was excited about being up and walking a significant distance for her today. (See PT note). She notices she is not winded with activity anymore as she was prior to this admission and for weeks after most recent surgery. She reports less pain and is working on increasing PO intake. She would like her hair washed and put up if possible. Spoke with RN, obtained shower cap for pt and offered to help her. Also gave pt/SO instructions on how to use. Pt wants to wait until sitting up in chair later this afternoon. EMR reviewed and update received from Dr & LOVE earlier this am. Pt remains on TPN due to inadequate PO intake. Surgeon plans to place wound vac back on abd wound. Pal Care will follow from a distance and return as needed or requested.
--- NOTE | 2019-10-22 16:50 | NUR ---
WOUND VAC PLACED PER DR JACKSON ORDERS. PER DR JACKSON ORDERS VASOLINE GAUZE PLACED ON WOUND BED PRIOR TO PLACING THE BLACK FOAM WE DO NOT HAVE WHITE FOAM AVAILABLE WITH OUR WOUND VACS. PICTURES TAKEN AND PLACED IN CHART. PT TOLERATED WELL.
[2019-10-23 04:44] LABS: BASOPHILS ABSOLUTE AUTO 0.07 K/mm3 (0.00-0.23); BASOPHILS PERCENT AUTO 1 % (0-2); EOSINOPHILS ABSOLUTE AUTO 0.25 K/mm3 (0.00-0.68); EOSINOPHILS PERCENT AUTO 3 % (0-6); Hematocrit 34.9 % (33.0-51.0); Hemoglobin 10.9 g/dL (11.5-16.0); IMMATURE GRAN ABSOLUTE AUTO 0.19 K/mm3 (0.00-0.10); IMMATURE GRAN PERCENT AUTO 3 % (0-1); LYMPHOCYTES ABSOLUTE AUTO 1.51 K/mm3 (0.84-5.20); LYMPHOCYTES PERCENT AUTO 20 % (21-46); MONOCYTES ABSOLUTE AUTO 1.02 K/mm3 (0.16-1.47); MONOCYTES PERCENT AUTO 14 % (4-13); Mean Corpuscular HGB 30.1 pg (26.0-34.0); Mean Corpuscular HGB Conc 31.2 g/dL (31.5-36.5); Mean Corpuscular Volume 96 fL (80-100); Mean Platelet Volume 9.6 fL (9.1-12.4); NEUTROPHILS ABSOLUTE AUTO 4.54 K/mm3 (1.96-9.15); NEUTROPHILS PERCENT AUTO 60 % (41-73); Platelet Count 829 K/mm3 (150-400); RDW Coefficient Variation 16.7 % (11.7-14.2); Red Blood Cell Count 3.62 M/mm3 (3.80-5.20); White Blood Cell Count 7.58 K/mm3 (4.00-11.30)
[2019-10-23 05:09] LABS: Alanine Aminotransfer (ALT/SGP 23 U/L (12-78); Albumin, Blood 1.4 g/dL (3.4-5.0); Albumin/Globulin Ratio 0.3 (0.8-1.8); Alk Phos 286 U/L (50-136); Anion Gap 5 mmol/L (6-16); Aspartate Aminotrans (AST/SGOT 18 U/L (12-37); Bilirubin, Total 0.4 mg/dL (0.1-1.0); Blood Urea Nitrogen 7 mg/dL (8-24); Bun/Creatinine Ratio 19.8 (12.0-20.0); CO2, Blood 27 mmol/L (21-32); Calcium, Blood 7.7 mg/dL (8.5-10.1); Chloride, Blood 104 mmol/L (98-108); Creatinine, Blood 0.35 mg/dL (0.40-1.00); Globulin, Blood 5.2 g/dL (2.2-4.0); Glomerular Filtration Rate >60 (60-); Glucose, Blood 123 mg/dL (70-99); Sodium, Blood 136 mmol/L (136-145); Total Protein, Blood 6.6 g/dL (6.4-8.2)
--- NOTE | 2019-10-23 06:07 | NUR ---
Patient has complained of pain in her abdomen tonight, medicated for pain via IV 2 times. She stated that her midline incision is tight with the wound vac on it. 70 mmhg of suction, dressing compressed, no drainage in the wound vac container. green stool in the ostomy, MARIAM drain with scant drainage. Up to the BSC independently. patient has belching and GI upset with all PO meds. call light in reach. no acute changes.
--- NOTE | 2019-10-23 17:50 | NUR ---
SHIFT SUMMARY PT HAS DONE WELL T/O SHIFT. WOUND VAC CHANGED IN ADDITION TO PERCUTANEOUS DRAIN DRESSING FOLLOWING SHOWER, PT WORKED WITH THERAPY AND UP TO CHAIR, [facility] DRESSING C/D/I-TO BE CHANGED 10/24/19. PURULENT DRAINAGE FROM WOUND VAC 100ML THIS SHIFT. RUST COLORED DRAINAGE FROM PERCUTANEOUS DRAIN 75ML. PT TO BSC 1 ASSIST VOIDING. OSTOMY WITH MOD AMOUNT SOFT/LIQUID GREEN STOOL. DR JACKSON IN TO SEE PT THIS SHIFT, ENCOURAGED PT TO CONTINUE TO INCREASE PO INTAKE. CPN RUNNING PER EMAR. PAIN HAS BEEN TOLERABLE WITH IV PAIN MEDICATION, DID DISCUSS WITH PT TRANSITIONING TO ORAL MEDICATION POSSIBLY TOMORROW, PT OPEN TO THIS.
--- NOTE | 2019-10-24 04:03 | NUR ---
SHIFT SUMMARY: RAHEEM IS A&OX4. SHE IS A ONE PERSON ASSIST TO THE BEDSIDE COMMODE. SHE IS TOLERATING PO INTAKE, BUT TAKES IN VERY LITTLE. WOUND VAC TO ABDOMEN MIDLINE IS PATENT, DRAINING SS FLUID. URESIL DRAIN PATENT, DRAINING DARK, RED/BROWN FLUID. SHE REPORTS ADEQUATE PAIN CONTROL WITH DILAUDID. SHE HAS ALSO REQUESTED LORAZEPAM AND ZOFRAN. SHE IS ABLE TO MAKE HER NEEDS KNOWN. SHE USES THE TRAPEZE TO HELP REPOSITION HERSELF. SHE HAS HAD GREEN LIQUID STOOL THROUGH HER OSTOMY. SHE IS LYING IN BED WITH HER CALL LIGHT IN REACH. WILL REPORT TO DAY SHIFT RN.
--- NOTE | 2019-10-24 14:20 | NUR ---
PT AMBULATING IN [place] W/THERAPY.
--- NOTE | 2019-10-24 17:53 | NUR ---
SUMMARY NO ACUTE CHANGES T/O SHIFT. PT HAS SOUP AT BEDSIDE, HAS NOT TAKEN ANY YET. SIPPING FLUIDS T/O DAY. WORKED W/THERAPY AND AMBULATED IN HALLS. MEDICATED PER ORDERS FOR PAIN/NAUSEA/ANXIETY T/O SHIFT. CALL LIGHT IN REACH.
--- NOTE | 2019-10-25 08:05 | NUR ---
NO ACUTE CHANGES THIS SHIFT
[2019-10-25 12:16] LABS: BASOPHILS ABSOLUTE AUTO 0.05 K/mm3 (0.00-0.23); BASOPHILS PERCENT AUTO 1 % (0-2); EOSINOPHILS ABSOLUTE AUTO 0.37 K/mm3 (0.00-0.68); EOSINOPHILS PERCENT AUTO 5 % (0-6); Hematocrit 34.3 % (33.0-51.0); Hemoglobin 10.8 g/dL (11.5-16.0); IMMATURE GRAN ABSOLUTE AUTO 0.11 K/mm3 (0.00-0.10); IMMATURE GRAN PERCENT AUTO 2 % (0-1); LYMPHOCYTES PERCENT AUTO 15 % (21-46); MONOCYTES ABSOLUTE AUTO 1.02 K/mm3 (0.16-1.47); MONOCYTES PERCENT AUTO 14 % (4-13); Mean Corpuscular HGB 30.3 pg (26.0-34.0); Mean Corpuscular HGB Conc 31.5 g/dL (31.5-36.5); Mean Corpuscular Volume 96 fL (80-100); Mean Platelet Volume 9.1 fL (9.1-12.4); NEUTROPHILS ABSOLUTE AUTO 4.93 K/mm3 (1.96-9.15); NEUTROPHILS PERCENT AUTO 65 % (41-73); Platelet Count 761 K/mm3 (150-400); RDW Coefficient Variation 16.6 % (11.7-14.2); RDW Standard Deviation 58.1 fL (35.1-46.3); Red Blood Cell Count 3.57 M/mm3 (3.80-5.20); White Blood Cell Count 7.58 K/mm3 (4.00-11.30)
[2019-10-25 12:33] LABS: Alanine Aminotransfer (ALT/SGP 39 U/L (12-78); Albumin, Blood 1.5 g/dL (3.4-5.0); Albumin/Globulin Ratio 0.3 (0.8-1.8); Alk Phos 243 U/L (50-136); Anion Gap 3 mmol/L (6-16); Aspartate Aminotrans (AST/SGOT 32 U/L (12-37); Bilirubin, Total 0.4 mg/dL (0.1-1.0); Blood Urea Nitrogen 6 mg/dL (8-24); Bun/Creatinine Ratio 16.3 (12.0-20.0); CO2, Blood 30 mmol/L (21-32); Calcium, Blood 7.7 mg/dL (8.5-10.1); Chloride, Blood 102 mmol/L (98-108); Creatinine, Blood 0.37 mg/dL (0.40-1.00); Globulin, Blood 5.3 g/dL (2.2-4.0); Glomerular Filtration Rate >60 (60-); Glucose, Blood 122 mg/dL (70-99); Magnesium, Blood 2.1 mg/dL (1.6-2.4); Potassium, Blood 3.8 mmol/L (3.5-5.5); Sodium, Blood 135 mmol/L (136-145); Total Protein, Blood 6.8 g/dL (6.4-8.2)
--- NOTE | 2019-10-25 19:59 | NUR ---
SHIFT SUMMARY PAIN HAS BEEN MANAGED WITH PO PAIN MEDICATION. PT IS A 1 ASSIST WHEN OOB. PT HAS STILL HAD DECREASED PO INTAKE. VSS. REPORT GIVEN TO ALDEN JOYNER.
--- NOTE | 2019-10-26 07:30 | NUR ---
pt had a shower wound vac dressing and ostomy changed pt combing her hair stated overall she has been feeling better
[2019-10-26 08:33] LABS: Hematocrit 36.5 % (33.0-51.0); Hemoglobin 11.6 g/dL (11.5-16.0); Mean Corpuscular HGB 30.6 pg (26.0-34.0); Mean Corpuscular HGB Conc 31.8 g/dL (31.5-36.5); Mean Corpuscular Volume 96 fL (80-100); Mean Platelet Volume 9.4 fL (9.1-12.4); Platelet Count 764 K/mm3 (150-400); RDW Coefficient Variation 16.6 % (11.7-14.2); RDW Standard Deviation 58.3 fL (35.1-46.3); Red Blood Cell Count 3.79 M/mm3 (3.80-5.20); White Blood Cell Count 7.36 K/mm3 (4.00-11.30)
[2019-10-26 09:04] LABS: Alanine Aminotransfer (ALT/SGP 50 U/L (12-78); Albumin, Blood 1.6 g/dL (3.4-5.0); Albumin/Globulin Ratio 0.3 (0.8-1.8); Alk Phos 255 U/L (50-136); Anion Gap 3 mmol/L (6-16); Aspartate Aminotrans (AST/SGOT 31 U/L (12-37); Bilirubin, Total 0.5 mg/dL (0.1-1.0); Blood Urea Nitrogen 10 mg/dL (8-24); Bun/Creatinine Ratio 23.9 (12.0-20.0); CO2, Blood 29 mmol/L (21-32); Calcium, Blood 8.3 mg/dL (8.5-10.1); Chloride, Blood 100 mmol/L (98-108); Creatinine, Blood 0.42 mg/dL (0.40-1.00); Globulin, Blood 5.7 g/dL (2.2-4.0); Glomerular Filtration Rate >60 (60-); Glucose, Blood 107 mg/dL (70-99); Potassium, Blood 3.7 mmol/L (3.5-5.5); Sodium, Blood 132 mmol/L (136-145); Total Protein, Blood 7.3 g/dL (6.4-8.2)
[2019-10-26 09:07] LABS: BAND PERCENT MAN 4 % (0-8); BASOPHILS ABSOLUTE MAN 0.07 K/mm3 (0.00-0.23); BASOPHILS PERCENT MAN 1 % (0-2); EOSINOPHILS ABSOLUTE MAN 0.29 K/mm3 (0.00-0.68); EOSINOPHILS PERCENT MAN 4 % (0-6); LYMPHOCYTES ABSOLUTE MAN 1.32 K/mm3 (0.84-5.20); LYMPHOCYTES PERCENT MAN 18 % (21-46); MONOCYTES ABSOLUTE MAN 0.73 K/mm3 (0.16-1.47); MONOCYTES PERCENT MAN 10 % (4-13); MYELOCYTE ABSOLUTE MAN 0.07 K/mm3 (0.00-0.00); MYELOCYTE PERCENT MAN 1 % (0-0); NEUTROPHILS ABSOLUTE MAN 4.85 K/mm3 (1.96-9.15); SEG NEUTROPHILS PERCENT MAN 62 % (41-73); TOTAL CELLS COUNTED 100
--- NOTE | 2019-10-26 10:49 | NUR ---
dr williamson by to see pt talked with him re adding megace to improve pt appeatite
--- NOTE | 2019-10-26 13:21 | NUR ---
PO ATIVAN GIVEN PER PT REQ EARLIER GAVE PT PAIN AND NAUSEA MEDS STATED PAIN IS 1/10
--- NOTE | 2019-10-26 17:30 | NUR ---
PT ASKED FOR SOUP FOR DINNER
--- NOTE | 2019-10-27 08:11 | NUR ---
ASSUMED CARE PF PT AT 0030. NO ACUTE CHANGES.
[2019-10-27 08:27] LABS: BASOPHILS ABSOLUTE AUTO 0.06 K/mm3 (0.00-0.23); BASOPHILS PERCENT AUTO 1 % (0-2); EOSINOPHILS ABSOLUTE AUTO 0.62 K/mm3 (0.00-0.68); EOSINOPHILS PERCENT AUTO 7 % (0-6); Hematocrit 34.1 % (33.0-51.0); Hemoglobin 10.8 g/dL (11.5-16.0); IMMATURE GRAN PERCENT AUTO 2 % (0-1); LYMPHOCYTES ABSOLUTE AUTO 1.16 K/mm3 (0.84-5.20); LYMPHOCYTES PERCENT AUTO 13 % (21-46); MONOCYTES ABSOLUTE AUTO 0.91 K/mm3 (0.16-1.47); MONOCYTES PERCENT AUTO 10 % (4-13); Mean Corpuscular HGB 30.4 pg (26.0-34.0); Mean Corpuscular HGB Conc 31.7 g/dL (31.5-36.5); Mean Corpuscular Volume 96 fL (80-100); NEUTROPHILS ABSOLUTE AUTO 5.92 K/mm3 (1.96-9.15); NEUTROPHILS PERCENT AUTO 67 % (41-73); Platelet Count 727 K/mm3 (150-400); RDW Coefficient Variation 16.5 % (11.7-14.2); RDW Standard Deviation 57.4 fL (35.1-46.3); Red Blood Cell Count 3.55 M/mm3 (3.80-5.20); White Blood Cell Count 8.87 K/mm3 (4.00-11.30)
[2019-10-27 08:48] LABS: Alanine Aminotransfer (ALT/SGP 61 U/L (12-78); Albumin, Blood 1.5 g/dL (3.4-5.0); Albumin/Globulin Ratio 0.3 (0.8-1.8); Alk Phos 256 U/L (50-136); Anion Gap 4 mmol/L (6-16); Aspartate Aminotrans (AST/SGOT 41 U/L (12-37); Bilirubin, Total 0.3 mg/dL (0.1-1.0); Blood Urea Nitrogen 10 mg/dL (8-24); Bun/Creatinine Ratio 28.4 (12.0-20.0); CO2, Blood 28 mmol/L (21-32); Chloride, Blood 103 mmol/L (98-108); Creatinine, Blood 0.35 mg/dL (0.40-1.00); Globulin, Blood 5.5 g/dL (2.2-4.0); Glomerular Filtration Rate >60 (60-); Glucose, Blood 114 mg/dL (70-99); Potassium, Blood 4.1 mmol/L (3.5-5.5); Sodium, Blood 135 mmol/L (136-145)
--- NOTE | 2019-10-27 23:00 | NUR ---
PATIENT WAS TAKEN TO ANOTHER ROOM TO ENJOY THE Singular DISPLAY TONIGHT. SHE IS INDEPENDENT TO THE BSC AND W/C. AT SOME TIME DURING HER MOVEMENT TO OR FROM THE BED, HER PIG TAIL DRAIN GOT CAUGHT OR PULLED. nOW THE SUCTION ON THE DRAIN BAG IS NOT ACTIVATED. ONE OF THE HOLES ON THE DRAIN LINE IS EXPOSED. LINE IS TAPED IN PLACE FOR THE SURGEON TO REVIEW AND PLAN.
--- NOTE | 2019-10-28 06:03 | NUR ---
nO ACUTE CHANGED TO PATIENT CONDITION. SHE HAS SLEPT INBETWEEN DOSES OF DILAUDID. WILL CONTINUE TO MONITOR.
[2019-10-28 08:15] LABS: BASOPHILS PERCENT AUTO 1 % (0-2); EOSINOPHILS ABSOLUTE AUTO 0.66 K/mm3 (0.00-0.68); EOSINOPHILS PERCENT AUTO 6 % (0-6); Hematocrit 36.1 % (33.0-51.0); Hemoglobin 11.4 g/dL (11.5-16.0); IMMATURE GRAN ABSOLUTE AUTO 0.42 K/mm3 (0.00-0.10); IMMATURE GRAN PERCENT AUTO 4 % (0-1); LYMPHOCYTES ABSOLUTE AUTO 1.24 K/mm3 (0.84-5.20); LYMPHOCYTES PERCENT AUTO 12 % (21-46); MONOCYTES ABSOLUTE AUTO 1.07 K/mm3 (0.16-1.47); MONOCYTES PERCENT AUTO 10 % (4-13); Mean Corpuscular HGB 30.7 pg (26.0-34.0); Mean Corpuscular HGB Conc 31.6 g/dL (31.5-36.5); Mean Corpuscular Volume 97 fL (80-100); Mean Platelet Volume 9.1 fL (9.1-12.4); NEUTROPHILS PERCENT AUTO 67 % (41-73); Platelet Count 662 K/mm3 (150-400); RDW Coefficient Variation 16.7 % (11.7-14.2); RDW Standard Deviation 58.9 fL (35.1-46.3); Red Blood Cell Count 3.71 M/mm3 (3.80-5.20); White Blood Cell Count 10.69 K/mm3 (4.00-11.30)
[2019-10-28 08:36] LABS: Alanine Aminotransfer (ALT/SGP 61 U/L (12-78); Albumin, Blood 1.7 g/dL (3.4-5.0); Albumin/Globulin Ratio 0.3 (0.8-1.8); Alk Phos 272 U/L (50-136); Anion Gap 5 mmol/L (6-16); Aspartate Aminotrans (AST/SGOT 36 U/L (12-37); Bilirubin, Total 0.6 mg/dL (0.1-1.0); Blood Urea Nitrogen 12 mg/dL (8-24); Bun/Creatinine Ratio 27.4 (12.0-20.0); CO2, Blood 27 mmol/L (21-32); Calcium, Blood 8.1 mg/dL (8.5-10.1); Chloride, Blood 103 mmol/L (98-108); Creatinine, Blood 0.44 mg/dL (0.40-1.00); Globulin, Blood 5.7 g/dL (2.2-4.0); Glomerular Filtration Rate >60 (60-); Glucose, Blood 86 mg/dL (70-99); Potassium, Blood 3.8 mmol/L (3.5-5.5); Sodium, Blood 135 mmol/L (136-145); Total Protein, Blood 7.4 g/dL (6.4-8.2)
--- NOTE | 2019-10-28 18:55 | NUR ---
SHIFT SUMMARY PT HAS DONE WELL THIS SHIFT. INCREASED PO INTAKE. ABDOMINAL WOUND DRESSING CHANGED NEEDED. TPN RUNNING PER EMAR. INCREASED OUTPUT FROM OSTOMY.
--- NOTE | 2019-10-28 23:48 | NUR ---
BEDSIDE REPORT REC FROM [facility]. PT SITTING AWAKE IN BED, NO DISTRESS NOTED. DRESSING, OSTOMY APPLIANCE AND DRAIN CHECKED. PT DENIES NEEDS AT THIS TIME. WILL CONT TO MONITOR AND TX PER ORDERS.
--- NOTE | 2019-10-29 07:20 | NUR ---
HR REMAINED TACHY UP TO 112; PT DENIED CP/PRESSURE. WET TO DRY DRESSING CHANGED X1 R/T SATURATION. WOUND DRNG GREEN/SS DRNG. OSTOMY PUTTING OUT LIQ BROWN STOOL. PIGTAIL DRNG RUST COLORED DRNG. PT REP APPETITE IMPROVING, PO INTAKE REMAINS MINIMAL; TPN CONT PER ORDERS. IV DILAUDID AND ZOFRAN GIVEN Q4 PER PT REQ. PT UP INDEP TO BSC, MOI WELL. PT USING CALL LIGHT FOR ASSISTANCE, REPORT GIVEN TO KRYSTYNA Dumont RN.
[2019-10-29 08:13] LABS: EOSINOPHILS PERCENT AUTO 6 % (0-6); Hemoglobin 10.6 g/dL (11.5-16.0); IMMATURE GRAN ABSOLUTE AUTO 0.43 K/mm3 (0.00-0.10); IMMATURE GRAN PERCENT AUTO 4 % (0-1); LYMPHOCYTES ABSOLUTE AUTO 1.12 K/mm3 (0.84-5.20); LYMPHOCYTES PERCENT AUTO 10 % (21-46); MONOCYTES ABSOLUTE AUTO 0.86 K/mm3 (0.16-1.47); MONOCYTES PERCENT AUTO 8 % (4-13); Mean Corpuscular HGB 30.8 pg (26.0-34.0); Mean Corpuscular HGB Conc 31.2 g/dL (31.5-36.5); Mean Corpuscular Volume 99 fL (80-100); Mean Platelet Volume 9.3 fL (9.1-12.4); NEUTROPHILS ABSOLUTE AUTO 8.04 K/mm3 (1.96-9.15); NEUTROPHILS PERCENT AUTO 72 % (41-73); NRBC ABSOLUTE 0.02 K/mm3 (0.00-0.02); NRBC Auto 0.2 /100 WBC (0.0-0.2); Platelet Count 620 K/mm3 (150-400); RDW Coefficient Variation 16.5 % (11.7-14.2); RDW Standard Deviation 59.6 fL (35.1-46.3); Red Blood Cell Count 3.44 M/mm3 (3.80-5.20)
[2019-10-29 08:26] LABS: BASOPHILS ABSOLUTE AUTO 0.05 K/mm3 (0.00-0.23); BASOPHILS PERCENT AUTO 0 % (0-2)
[2019-10-29 08:28] LABS: Triglycerides 190 mg/dL (30-160)
[2019-10-29 08:30] LABS: Alanine Aminotransfer (ALT/SGP 70 U/L (12-78); Albumin, Blood 1.6 g/dL (3.4-5.0); Albumin/Globulin Ratio 0.3 (0.8-1.8); Alk Phos 266 U/L (50-136); Anion Gap 6 mmol/L (6-16); Aspartate Aminotrans (AST/SGOT 40 U/L (12-37); Bilirubin, Total 0.3 mg/dL (0.1-1.0); Blood Urea Nitrogen 13 mg/dL (8-24); Bun/Creatinine Ratio 35.1 (12.0-20.0); CO2, Blood 24 mmol/L (21-32); Calcium, Blood 8.1 mg/dL (8.5-10.1); Chloride, Blood 103 mmol/L (98-108); Creatinine, Blood 0.37 mg/dL (0.40-1.00); Globulin, Blood 5.4 g/dL (2.2-4.0); Glomerular Filtration Rate >60 (60-); Glucose, Blood 109 mg/dL (70-99); Potassium, Blood 3.3 mmol/L (3.5-5.5); Sodium, Blood 133 mmol/L (136-145)
--- NOTE | 2019-10-29 16:25 | NUR ---
Pal Care Visit: Upon entering room, pt is crying out and clutching her R side/abdomen. It appears that her pain is spasmotic or with certain movements. Pt wanted to sit up better. I assisted pt with repositioning in bed and brought her a warm blanket to place on abdomen. She states this has been helpful in the past. Nurse was given update on my visit and I got an update on current status with wound and s/s management from RN. Pt was not feeling comfortable enough to do a full s/s assessment. She is still getting the duragesic patch every three days and IV analgesic for breakthru pain. PO meds also available. I will attempt to see her again tomorrow.
--- NOTE | 2019-10-29 19:21 | NUR ---
PT HAS BEEN STABLE THIS SHIFT. PT HAS BEEN EMOTIONAL OFF/ON T/O SHIFT. ATIVAN X2 THIS SHIFT. PT DIET HAD IMPROVED SINCE MEGACE STARTED. PT VOIDING WELL ON BSC. PT HAVING LIQUID GREEN STOOL AND FLATUS IN OSTOMY. MIDLINE DRESSING CHANGED X1 THIS SHIFT, ALSO HAVING GREEN LIQUID DRAINAGE. PIGTAIL WITH 40CC BROWN OUTPUT. CONT TPN. DILAUDID AND ZOFRAN Q4HR. STARTED ON MYCELEX THIS EVENING. DIETARY IN TO SEE PT THIS SHIFT. PT USES CALL LIGHT APPROPRIATELY NEEDED.
--- NOTE | 2019-10-30 06:28 | NUR ---
PT HAD NO CHANGES T/O NIGHT. PT MED FOR PAIN AND NAUSEA Q4 W/REP RELIEF. PT REP APPETITE SLOWLY IMPROVING. OSTOMY PUTTING OUT LIQ GREEN STOOL. PT HAD NO C/O N/V. DRESSING CHANGED X1 R/T SATURATION. WOUND DRAINING GREEN/PURULANT SS DRNG. NEW WET TO DRY DRESSING PLACED. PT INQUIRING ABOUT POSS D/C TO SNF, RECEPTIVE TO INFO. PT UP INDEP TO BSC, IS USING CALL LIGHT FOR ASSISTANCE, WILL CONT TO MONITOR UNTIL REP GIVEN TO ONCOMING NR.
[2019-10-30 08:09] LABS: BASOPHILS ABSOLUTE AUTO 0.11 K/mm3 (0.00-0.23); BASOPHILS PERCENT AUTO 1 % (0-2); EOSINOPHILS ABSOLUTE AUTO 0.56 K/mm3 (0.00-0.68); EOSINOPHILS PERCENT AUTO 6 % (0-6); Hematocrit 33.5 % (33.0-51.0); Hemoglobin 10.5 g/dL (11.5-16.0); IMMATURE GRAN ABSOLUTE AUTO 0.51 K/mm3 (0.00-0.10); IMMATURE GRAN PERCENT AUTO 5 % (0-1); LYMPHOCYTES ABSOLUTE AUTO 1.24 K/mm3 (0.84-5.20); LYMPHOCYTES PERCENT AUTO 12 % (21-46); MONOCYTES ABSOLUTE AUTO 0.97 K/mm3 (0.16-1.47); MONOCYTES PERCENT AUTO 10 % (4-13); Mean Corpuscular HGB 30.5 pg (26.0-34.0); Mean Corpuscular HGB Conc 31.3 g/dL (31.5-36.5); Mean Corpuscular Volume 97 fL (80-100); Mean Platelet Volume 9.4 fL (9.1-12.4); NEUTROPHILS PERCENT AUTO 67 % (41-73); Platelet Count 592 K/mm3 (150-400); RDW Coefficient Variation 16.6 % (11.7-14.2); RDW Standard Deviation 58.2 fL (35.1-46.3); Red Blood Cell Count 3.44 M/mm3 (3.80-5.20); White Blood Cell Count 10.19 K/mm3 (4.00-11.30)
[2019-10-30 08:31] LABS: Albumin, Blood 1.5 g/dL (3.4-5.0); Anion Gap 2 mmol/L (6-16); Blood Urea Nitrogen 13 mg/dL (8-24); Bun/Creatinine Ratio 31.3 (12.0-20.0); CO2, Blood 29 mmol/L (21-32); Calcium, Blood 8.1 mg/dL (8.5-10.1); Chloride, Blood 104 mmol/L (98-108); Creatinine, Blood 0.42 mg/dL (0.40-1.00); Glomerular Filtration Rate >60 (60-); Glucose, Blood 103 mg/dL (70-99); Magnesium, Blood 1.9 mg/dL (1.6-2.4); Phosphorus, Blood 3.5 mg/dL (2.5-4.9); Sodium, Blood 135 mmol/L (136-145)
--- NOTE | 2019-10-30 10:00 | NUR ---
PT TALKING ON PHONE
--- NOTE | 2019-10-30 10:41 | NUR ---
PT ON PHONE
--- NOTE | 2019-10-30 11:17 | NUR ---
PT TALKING ON PHONE. ADVISED TO CALL WHEN OFF PHONE SO MAY ADMINISTER AM MEDS.
--- NOTE | 2019-10-30 15:18 | NUR ---
CHANGED DRESSING TO ABDOMEN PER ORDERS PT TOLERATED WELL.
--- NOTE | 2019-10-30 17:37 | NUR ---
SUMMARY NO ACUTE CHANGES T/O SHIFT. PT DECLINED SITTING UP IN CHAIR DUE TO PAIN. ORDERS TO ADMINISTER PO DILAUDID AND USE IV BACK UP. PT WAS NERVOUS TO TRY. ADMINISTERED PO PAIN MEDS AND PATIENT IS CURRENTLY SLEEPING. CHANGED DRESSING TO ABDOMEN PER ORDERS. CALL LIGHT IN REACH.
--- NOTE | 2019-10-30 22:20 | NUR ---
PAIN MEDS: PT VERBALIZED ANXIETY R/T CHANGES IN PAIN MEDS. PT STATES THAT PO DILAUDID "MAKES ME FEEL CRAPPY" DISCUSSED THAT PO AND IV ARE THE SAME MEDS. PT STATES PO DILAUDID "DOESN'T WORK WELL" DISCUSSED OTHER FACTORS THAT MAY HAVE CONTRIBUTED TO PT NOT FEELING WELL. PT INQUIRING ABOUT OTHER PAIN MED OPTIONS. PT STATES SHE HAS PEV TAKEN OXYCODONE W/GOOD RELIEF. OFFRRED TO CALL MD TO DISCUSS POSSIBLE PAIN MED CHANGES. PT AGREEABLE TO TAKE PO DILAUD AGAIN TO ASSESS FOR EFFECTIVENESS/SIDE EFFECTS.
--- NOTE | 2019-10-31 06:22 | NUR ---
PT HAD NO ACUTE CHANGES T/O NIGHT. WOUND CONT TO DRAIN GREEN PURULANT DRNG. DRESSING CHANGED X1. PT REP APPETITE IMPROVING, NO N/V. PT REMAINS ANXIOUS ABOUT CHANGES TO PAIN MED ORDERS. DISCUSSED IMPORTANCE OF TRANSITIONING TO PO PAIN MGMT WELL BENEFITS OF PO VS IV. PT UP INDEP TO BSC, IS USING CALL LIGHT FOR ASSISTANCE, WILL CONT TO MONITOR UNTIL REP GIVEN TO ONCOMING RN.
[2019-10-31 06:37] LABS: Hematocrit 33.1 % (33.0-51.0); Hemoglobin 10.6 g/dL (11.5-16.0)
[2019-10-31 06:54] LABS: Albumin, Blood 1.6 g/dL (3.4-5.0); Anion Gap 6 mmol/L (6-16); Blood Urea Nitrogen 12 mg/dL (8-24); Bun/Creatinine Ratio 35.9 (12.0-20.0); CO2, Blood 26 mmol/L (21-32); Calcium, Blood 8.4 mg/dL (8.5-10.1); Chloride, Blood 101 mmol/L (98-108); Creatinine, Blood 0.33 mg/dL (0.40-1.00); Glomerular Filtration Rate >60 (60-); Glucose, Blood 106 mg/dL (70-99); Phosphorus, Blood 4.1 mg/dL (2.5-4.9); Sodium, Blood 133 mmol/L (136-145)
--- NOTE | 2019-10-31 16:05 | NUR ---
SHIFT SUMMARY PT REPORTS FEELING BETTER THIS SHIFT. MORE PO INTAKE TODAY THAN SHE HAS BEEN TAKING IN. TPN STILL INFUSING PER ORDERS. PT STRENGTH AND MOBILITY IMPROVING. PT WORKED WITH THERAPY TODAY AND AMBULATED HALLWAYS WITH MINIMAL USE OF THE FWW. INDEP TO BSC. PT REPORTS BETTER PAIN MANAGEMENT TODAY RATING BETWEEN 1-3/10. WET TO DRY DRESSING CHANGES TO ABD-WOUND STILL WITH GREEN/PURULENT DRAINAGE. OSTOMY APPLIANCE CHANGED TODAY. OSTOMY WITH LIQ GREEN STOOL. PT USES CALL LIGHT APPROPRIATELY.
--- NOTE | 2019-11-01 06:38 | NUR ---
SHIFT SUMMARY: RAHEEM IS A&OX4, INDEPENDENT TO THE BEDSIDE COMMODE. SHE IS ABLE TO MANAGE OSTOMY INDEPENDENTLY WHEN SUPPLIES ARE PROVIDED. SHE HAS REQUESTED THE ORAL DILAUDID AND IV DILAUDID. SHE REPORTS GOOD PAIN CONTROL. MIDLINE INCISION WITH WET TO DRY DRSG. URESIL DRAIN IN PLACE, NO DRAINAGE THIS SHIFT. SHE REPORTS IMPROVING APPETITE AND INCREASING PO INTAKE. SHE IS LYING IN BED WITH HER CALL LIGHT IN REACH. SHE IS ABLE TO TURN AND REPOSITION INDEPENDENTLY. WILL REPORT TO DAY SHIFT RN.
--- NOTE | 2019-11-01 16:03 | NUR ---
SHIFT SUMMARY PT CONT TO REPORT FEELING BETTER. MORE PO INTAKE TODAY AND TPN DC'D. PT STRENGTH AND MOBILITY IMPROVING. UP IN W/C WITH SIG OTHER TODAY. INDEP TO BSC. PT CONT TO REPORT BETTER PAIN MANAGEMENT RATING BETWEEN 1-10. WET TO DRY DRESSING CHANGE TO ABD-WOUND STILL WITH SMALL AMOUNTS OF GREEN/PURULENT DRAINAGE. OSTOMY WITH GREEN LIQ STOOL AND PT PARTICIPATING IN EMPTYING BAG. NO DRAINAGE NOTED IN URECIL BAG TO RLQ. PLAN IS FOR PT TO DISCHARGE HOME TOMORROW WITH HOME HEALTH. CARE MANAGMENT SEEING PT. PT USES CALL LIGHT APPROPRIATELY.
--- NOTE | 2019-11-01 19:45 | NUR ---
RAHEEM AND HER SO, DONALD, EXPRESSED CONCERNS ABOUT THE PLAN TO DISCHARGE HOME TOMORROW D/T LACK OF INFORMATION. THEY STATED THAT THEY HAVE NOT BEEN GIVEN A TIME WHEN THE INITAL HOME HEALTH VISIT WILL OCCUR AND ARE CONCERNED ABOUT WOUND CARE SUPPLIES AND MEDICATIONS. DISCUSSED MEDICATIONS AND MADE LIST ON WHITE BOARD. THIS NURSE STATED THAT SHE WOULD PASS THEIR CONCERNS ON TO THE ONCOMING DAY SHIFT RN. DONALD EXPRESSED FRUSTRATION D/T FEELING THAT HE HAS BEEN GIVEN MISINFORMATION OVER THE PAST THREE WEEKS R/T RAHEEM'S DISCHARGE PLAN. DISCUSSED CHANGES IN PLANS FROM SNF TO HOME HEALTH DUE TO IMPROVEMENT IN RAHEEM'S CONDITION. BOTH RAHEEM AND DONALD STATED THEY FELT THEIR CONCERNS HAD BEEN ADDRESSED AT THIS TIME. DONALD STATED THAT HE DOES NOT FEEL COMFORTABLE TAKING RAHEEM HOME WITHOUT THE NECESSARY SUPPLIES. EDUCATION AND REASSURANCE PROVIDED.
--- NOTE | 2019-11-02 06:09 | NUR ---
SHIFT SUMMARY: RAHEEM IS A&OX4. SHE HAS NOT USED ANY IV PAIN MEDICATION THIS SHIFT. SHE IS MANAGING HER OSTOMY INDEPENDENTLY. VSS, NO ACUTE EVENTS OVERNIGHT. SHE IS INDEPENDENT IN THE ROOM. SHE STATES THAT SHE IS LOOKING FORWARD TO GOING HOME TODAY. SHE IS TOLERATING PO INTAKE WELL. OSTOMY WITH INCREASED OUTPUT. SHE DENIES ANY DIFFICULTY WITH URINATION. MIDLINE WOUND WITH WET TO DRY DRSG, CHANGED THIS SHIFT. SHE IS LYING IN BED WITH HER CALL LIGHT IN REACH. WILL REPORT TO DAY SHIFT RN.
--- NOTE | 2019-11-02 07:56 | NUR ---
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
--- NOTE | 2019-11-02 08:43 | NUR ---
dr martinez bt to see pt talked with her re pt medications for discharge pt also asked
[2019-11-02] MEDS ORDERED: Feverall650 MG PR (10:26)
[2019-11-02] MEDS ORDERED: CALCIUM CIT 311 EAC7 PO (10:27)
[2019-11-02] MEDS ORDERED: CLOT10 MT (10:30)
[2019-11-02] MEDS ORDERED: HYDMOR2 PO (10:31)
[2019-11-02] MEDS ORDERED: MEGESTROL400 MG/11 PO (10:33)
[2019-11-02] MEDS ORDERED: Mupirocin22 GM TOP (10:34)
--- NOTE | 2019-11-02 11:24 | NUR ---
pt in shower
--- NOTE | 2019-11-02 12:00 | NUR ---
new wet to dry dressing applied midline with coaching on how to change will also go over with pt's spouse
--- NOTE | 2019-11-02 13:17 | NUR ---
MESSAGE LEFT WITH DR JACKSON RE PT DRAIN AWAITING RESPONSE
--- NOTE | 2019-11-02 14:50 | NUR ---
talked with dr williamson to go home with the drain f/u appt in 2 weeks discharge instructions reviewed meds faxed to [facility] and rx given pt working with ot at this time
--- NOTE | 2019-11-02 15:28 | NUR ---
discharge instructions reviewed with pt's spouse with verbal demonstration for changing the dressing wet to dry pt also feels comfortable with instructions hh notified by girish earlier i left her a message after speaking with her in person dr williamson to follow pt until seen by martha lorenz from [facility] appointment already made
--- NOTE | 2019-11-02 16:15 | NUR ---
wc escort to car no acute changes
== END 2019-11-02 16:15 | disposition home health service (06) | DRG 853 ==
LOC: ER 14:24 → ICUW 18:11 → SURS 10-01 17:04
PROVIDERS: Anesthesiology; Family Medicine; Internal Medicine; Internal Medicine Critical Care Medicine; Pharmacist; Physician Assistant; Surgery; ADMIT Internal Medicine
PROC: 30233N1 Transfusion of Nonautologous Red Blood Cells into Peripheral Vein, Percutaneous Approach (ICD-10-PCS; 2019-09-23)
PROC: 04HK33Z Insertion of Infusion Device into Right Femoral Artery, Percutaneous Approach (ICD-10-PCS; 2019-09-23)
PROC: 30233K1 Transfusion of Nonautologous Frozen Plasma into Peripheral Vein, Percutaneous Approach (ICD-10-PCS; 2019-09-23)
PROC: 0BH17EZ Insertion of Endotracheal Airway into Trachea, Via Natural or Artificial Opening (ICD-10-PCS; 2019-09-23)
PROC: 5A1955Z Respiratory Ventilation, Greater than 96 Consecutive Hours (ICD-10-PCS; 2019-09-23)
PROC: 3E053XZ Introduction of Vasopressor into Peripheral Artery, Percutaneous Approach (ICD-10-PCS; principal; 2019-09-23 17:45)
PROC: 0DB80ZZ Excision of Small Intestine, Open Approach (ICD-10-PCS; 2019-09-23 17:45)
PROC: 0W9G0ZZ Drainage of Peritoneal Cavity, Open Approach (ICD-10-PCS; 2019-09-24)
PROC: 02HV33Z Insertion of Infusion Device into Superior Vena Cava, Percutaneous Approach (ICD-10-PCS; 2019-09-24)
PROC: B4151ZZ Fluoroscopy of Inferior Mesenteric Artery using Low Osmolar Contrast (ICD-10-PCS; 2019-09-24)
PROC: B4141ZZ Fluoroscopy of Superior Mesenteric Artery using Low Osmolar Contrast (ICD-10-PCS; 2019-09-24)
DX: A41.9 Sepsis, unspecified organism (principal); R65.21 Severe sepsis with septic shock; E43 Unspecified severe protein-calorie malnutrition; T81.19XA Other postprocedural shock, initial encounter; K63.1 Perforation of intestine (nontraumatic); G93.41 Metabolic encephalopathy; J95.821 Acute postprocedural respiratory failure; K66.1 Hemoperitoneum; K65.9 Peritonitis, unspecified; C18.9 Malignant neoplasm of colon, unspecified; E87.1 Hypo-osmolality and hyponatremia; K91.840 Postprocedural hemorrhage of a digestive system organ or structure following a digestive system procedure; D62 Acute posthemorrhagic anemia; E87.2 Acidosis; E87.0 Hyperosmolality and hypernatremia; N39.0 Urinary tract infection, site not specified; I82.402 Acute embolism and thrombosis of unspecified deep veins of left lower extremity; E87.6 Hypokalemia; Z90.49 Acquired absence of other specified parts of digestive tract; L89.152 Pressure ulcer of sacral region, stage 2; D69.59 Other secondary thrombocytopenia; T68.XXXA Hypothermia, initial encounter; E83.51 Hypocalcemia; E83.42 Hypomagnesemia; R73.01 Impaired fasting glucose; R34 Anuria and oliguria; Z66 Do not resuscitate; F32.9 Major depressive disorder, single episode, unspecified
CPT/HCPCS: 31720; 36215; 36216; 36415; 36430; 36556; 36600; 37191; 49405; 51702; 70450; 71045; 74176; 74177; 75726; 76536; 80048; 80053; 80069; 80202; 81001; 82248; 82272; 82310; 82330; 82803; 82947; 83605; 83735; 84100; 84132; 84478; 84484; 85014; 85018; 85025; 85027; 85049; 85384; 85610; 85730; 86850; 86900; 86901; 86923; 87040; 87070; 87075; 87077; 87086; 87147; 87186; 87205; 88307; 93005; 93010; 93308; 93971; 94002; 94003; 96361; 96365-59; 97110; 97162; 97166; 97168; 97530; 97535; 99152; 99153; 99285-25; A9270; A9270-GY; C1751; C1769; C1880; C1887; C1894; C8929; C9113; J0610; J0692; J1170; J1642; J1644; J1720; J1815; J1940; J2250; J2370; J2405; J2543; J2704; J3010; J3370; J3411; J3475; J3480; J7030; J7040; J7050; J7060; J7070; J7120; P9016; P9035; P9046; P9059; Q9957; Q9967

== ENCOUNTER 2020-01-17 06:57 | Day surgery (SDC) | payer OTHER ==
[~2020-01-17] VITALS: Ht 154.9 cm; Wt 43.6 kg
[~2020-01-17 06:57] MED LIST changes: +AMPDEX5 PO; +CALCIUM CIT 311 EAC7 PO; +CETI5; +CLOT10 MT; +FENTANYL1 EA10 TD; +FLUC200 PO; +Feverall650 MG PR; +HYDMOR2 PO; +LORA1 PO; +MEGESTROL400 MG/11 PO; +METO25ER PO; +Mupirocin22 GM TOP; +OMEP20ER PO; +PANT40 PO; +SERT25 PO; +XARELTO15 MG PO
--- NOTE | 2020-01-17 09:42 | NUR ---
PT BROUGHT BACK TO RECOVERY ROOM VIA [place]. RIGHT IJ VEIN ACCESSED DURING IVC FILTER REMOVAL. SITE APPEARS SOFT NON TENDER WITH NO BLEEINDG, OOZING, OR PAIN. DRESSING C/D/I. PT TOLERATING PO FLUIDS WITH NO DIFFICULTIES. PHONE CALL MADE FOR RIDE HOME.
--- NOTE | 2020-01-17 10:15 | NUR ---
PT GETS DRESSED WITH NO NEEDED ASSISTANCE. PROVIDED WITH MEAL TRAY, TOLERATES WITH NO DIFFICULTIES. RIGHT IJ VENOUS SITE REMAINS SOFT NON TENDER WITH NO BLEEDING. DISCHARGE INSTRUCTIONS REVIEWED. PAPERWORK PROVIDED.
--- NOTE | 2020-01-17 10:27 | NUR ---
IV REMOVED FROM LAC WITH CATH INTACT, PRESSURE DRESSING APPLIED. PT RIDE ARRIVES TO DRIVE HER HOME, PT DENIES NEED FOR W/C RIDE OUT TO PRIVATE VEHICLE. AMBULATES WITH STEADY GAIT. RIGHT IJ VENOUS SITE APPEARS SOFT WITH NO SIGNS OF BLEEDING OR OOZING NOTED. DRESSING C/D/I. NO ACUTE DISTRESS NOTED AT TIME OF D/C.
== END 2020-01-17 11:01 | disposition home or self-care (01) ==
LOC: MHTC 06:57
DX: Z45.89 Encounter for adjustment and management of other implanted devices (principal); I82.90 Acute embolism and thrombosis of unspecified vein; Z88.2 Allergy status to sulfonamides; C18.9 Malignant neoplasm of colon, unspecified; Z79.899 Other long term (current) drug therapy
CPT/HCPCS: 37193; 76937; 99152; 99153; C1773; J1644; J2250; J2405; J3010; J7030; J7040; Q9967

== ENCOUNTER → 2020-07-30 | Outpatient (CLI) | payer OTHER ==
[2020-08-04 10:07] LABS: HPV 16 Negative (Negative); HPV 18 Negative (Negative); HPV OTHER HR TYPES Negative (Negative)
== END ==
LOC: LAB SHORT 17:34
PROVIDERS: Advanced Practice Midwife
DX: Z01.419 Encounter for gynecological examination (general) (routine) without abnormal findings (principal); Z88.2 Allergy status to sulfonamides
CPT/HCPCS: 87624; G0123

== ENCOUNTER 2020-10-08 07:30 | Day surgery (SDC) | payer OTHER ==
[~2020-10-08] VITALS: Ht 154.9 cm; Wt 62.4 kg
[2020-10-08] MEDS ORDERED: TRAZ50 PO (08:01)
--- NOTE | 2020-10-08 08:28 | NUR ---
Ambulatory in Day Surgery. Surgical site prepped with 2% Chlorhexidine cloth wipe. History, Chart, Medications and Allergies reviewed before start of procedure. Lungs clear T/O to Auscultation. Patient confirms NPO status and agrees with scheduled surgery. Pre-Op teaching done. Pt verbalizes understanding. Patient States Post-Procedure ride home has been arranged. Patient reports completing Chlorhexadine shower X2 prior to admission to hospital.
--- NOTE | 2020-10-08 09:53 | NUR ---
10/08/20 0953 [facility] PORT A CATH ACCESSED INTRA OP BY DR CROWDER WITH A 20 GAUGE KEATING NEEDLE TO PTS RIGHT CHEST.
--- NOTE | 2020-10-08 11:20 | NUR ---
Discharge instructions reviewed with patient. Patient verbalizes understanding. Copy given to patient to take home. Discharged via wheelchair to private car for ride home.
== END 2020-10-08 11:30 | disposition home or self-care (01) ==
LOC: ORSCMMR 07:30 → ORD 09:00 → ORSCMMR 09:00
PROVIDERS: Surgery
PROC: B543ZZA Ultrasonography of Right Jugular Veins, Guidance (ICD-10-PCS; principal; 2020-10-08 09:00)
PROC: 05HM33Z Insertion of Infusion Device into Right Internal Jugular Vein, Percutaneous Approach (ICD-10-PCS; principal; 2020-10-08 09:00)
DX: C78.7 Secondary malignant neoplasm of liver and intrahepatic bile duct (principal); Z85.038 Personal history of other malignant neoplasm of large intestine; F41.8 Other specified anxiety disorders
CPT/HCPCS: 77001; C1788; J0690; J1100; J1642; J2405; J2704; J3010; J7120

== ENCOUNTER 2023-10-14 12:56 | Emergency (ER) | payer OTHER ==
[~2023-10-14] VITALS: Ht 154.9 cm; Wt 70.8 kg
[~2023-10-14 12:56] MED LIST changes: +LEVSOD112 PO; +OXYC10ER PO; +PERCOCET 10-321 EA10 PO; +TRAZ50 PO
[2023-10-14 13:31] LABS: BASOPHILS ABSOLUTE AUTO 0.04 K/mm3 (0.00-0.23); BASOPHILS PERCENT AUTO 0 % (0-2); EOSINOPHILS ABSOLUTE AUTO 0.03 K/mm3 (0.00-0.68); EOSINOPHILS PERCENT AUTO 0 % (0-6); Hematocrit 34.2 % (33.0-51.0); Hemoglobin 11.1 g/dL (11.5-16.0); IMMATURE GRAN ABSOLUTE AUTO 0.08 K/mm3 (0.00-0.10); IMMATURE GRAN PERCENT AUTO 1 % (0-1); LYMPHOCYTES ABSOLUTE AUTO 0.99 K/mm3 (0.84-5.20); LYMPHOCYTES PERCENT AUTO 9 % (21-46); MONOCYTES ABSOLUTE AUTO 1.13 K/mm3 (0.16-1.47); MONOCYTES PERCENT AUTO 11 % (4-13); Mean Corpuscular HGB 27.4 pg (26.0-34.0); Mean Corpuscular HGB Conc 32.5 g/dL (31.5-36.5); Mean Corpuscular Volume 84 fL (80-100); Mean Platelet Volume 9.2 fL (9.1-12.4); NEUTROPHILS ABSOLUTE AUTO 8.48 K/mm3 (1.96-9.15); NEUTROPHILS PERCENT AUTO 79 % (41-73); Platelet Count 407 K/mm3 (150-400); RDW Coefficient Variation 20.6 % (11.7-14.2); RDW Standard Deviation 62.4 fL (35.1-46.3); Red Blood Cell Count 4.05 M/mm3 (3.80-5.20); White Blood Cell Count 10.75 K/mm3 (4.00-11.30)
[2023-10-14 13:54] LABS: Magnesium, Blood 1.9 mg/dL (1.6-2.4)
[2023-10-14 14:01] LABS: Albumin/Globulin Ratio 0.3 (0.8-1.8); Bun/Creatinine Ratio 17.1 (12.0-20.0); Calcium, Blood 8.9 mg/dL (8.5-10.1); Creatinine, Blood 0.7 mg/dL (0.40-1.00); Globulin, Blood 6.6 g/dL (2.2-4.0); Potassium, Blood 5.1 mmol/L (3.5-5.5); Total Protein, Blood 8.6 g/dL (6.4-8.2)
[2023-10-14] MEDS ORDERED: Ondansetron HCl 2 MG / ML 2ML Vial IV ONE (16:10)
[2023-10-14] MEDS ORDERED: LORazepam 2 MG/ML 1ML Injection IV ONE (16:10)
[2023-10-14] MEDS ORDERED: HYDROmorphone HCl/Pf 1MG SYR IV PRN (16:10)
[2023-10-14] MEDS ORDERED: Metoclopramide HCl 5MG / ML 2ML Vial IV ONE (18:05)
[2023-10-14] MEDS ORDERED: DiphenhydrAMINE HCl 50 MG/ML 1ML Vial IV ONE (18:05)
--- NOTE | 2023-10-14 18:08 | NUR ---
MET WITH RAHEEM AND HER DAUGHTER SARAH. HAD AN EXTENSIVE CONVERSATION ABOUT HOSPICE AND WHAT THEIR SERVICES ENTAIL. DISCUSSED HOW LIFE WAS GOING AT HOME AND HOW HER CANCER HAD PROGRESSED. PATIENT AND DAUGHTER AGREEABLE TO HOSPICE SERVICES. REALYED INFORMATION TO CASE MANAGMENT AND PROVIDER. SPOKE WITH SPOUSE DONALD ON THE PHONE. TO [facility] PLAN OF CARE HE WAS ALSO AGREEABLE.
[2023-10-14 18:26] VITALS: BP 105/67
[2023-10-14] MEDS ORDERED: PROM25 PO (18:33)
[2023-10-14] MEDS ORDERED: PHENERGAN25 MG PR (18:33)
== END 2023-10-14 19:00 | disposition home or self-care (01) ==
LOC: ER 12:56
PROVIDERS: Emergency Medicine
DX: J90 Pleural effusion, not elsewhere classified (principal); C18.6 Malignant neoplasm of descending colon; E87.1 Hypo-osmolality and hyponatremia; Z88.2 Allergy status to sulfonamides; Z91.041 Radiographic dye allergy status; Z79.899 Other long term (current) drug therapy
CPT/HCPCS: 32555; 71045; 71046; 74176; 80053; 83735; 83880; 85025; 93005; 93010; 96374-59; 96375-59; 99285-25; J1170; J1200; J2060; J2405; J2765